=== PATIENT | male | born 1935 | race Caucasian/White ===

== ENCOUNTER 2016-04-23 10:48 | Outpatient (CLI) | payer MEDICARE, BC | END 2016-04-23 10:49 | disposition home or self-care (01) | DX: I48.91 Unspecified atrial fibrillation (principal); Z79.01 Long term (current) use of anticoagulants ==

== ENCOUNTER 2016-05-21 10:26 | Outpatient (CLI) | payer MEDICARE, BC | END 2016-05-21 10:27 | disposition home or self-care (01) | DX: I48.91 Unspecified atrial fibrillation (principal); Z79.01 Long term (current) use of anticoagulants ==

== ENCOUNTER 2016-06-04 10:45 | Outpatient (CLI) | payer MEDICARE, BC | END 2016-06-04 10:46 | disposition home or self-care (01) | DX: I48.91 Unspecified atrial fibrillation (principal); Z79.01 Long term (current) use of anticoagulants ==

== ENCOUNTER 2016-07-02 10:49 | Outpatient (CLI) | payer MEDICARE, BC | END 2016-07-02 10:50 | disposition home or self-care (01) | DX: I48.91 Unspecified atrial fibrillation (principal); Z79.01 Long term (current) use of anticoagulants ==

== ENCOUNTER 2016-07-30 08:42 | Outpatient (CLI) | payer MEDICARE, BC | END 2016-07-30 08:43 | disposition home or self-care (01) | DX: I48.91 Unspecified atrial fibrillation (principal); Z79.01 Long term (current) use of anticoagulants ==

== ENCOUNTER 2016-08-27 10:18 | Outpatient (CLI) | payer MEDICARE, BC | END 2016-08-27 10:19 | disposition home or self-care (01) | DX: I48.91 Unspecified atrial fibrillation (principal); Z79.01 Long term (current) use of anticoagulants ==

== ENCOUNTER 2016-09-24 08:47 | Outpatient (CLI) | payer MEDICARE, BC | END 2016-09-24 08:48 | disposition home or self-care (01) | LOC: LAB 08:47 | PROVIDERS: ATTEND Internal Medicine | DX: I48.91 Unspecified atrial fibrillation (principal) | CPT/HCPCS: 85610 ==

== ENCOUNTER 2016-10-22 10:18 | Outpatient (CLI) | payer MEDICARE, BC | END 2016-10-22 10:19 | disposition home or self-care (01) | LOC: LAB 10:18 | PROVIDERS: ATTEND Internal Medicine | DX: I48.91 Unspecified atrial fibrillation (principal) | CPT/HCPCS: 85610 ==

== ENCOUNTER 2016-11-19 07:51 | Outpatient (CLI) | payer MEDICARE, BC | END 2016-11-19 07:52 | disposition home or self-care (01) | LOC: LAB 07:51 | PROVIDERS: ATTEND Internal Medicine | DX: I48.91 Unspecified atrial fibrillation (principal) | CPT/HCPCS: 85610 ==

== ENCOUNTER 2016-12-03 10:27 | Outpatient (CLI) | payer MEDICARE, BC | END 2016-12-03 10:28 | disposition home or self-care (01) | LOC: LAB 10:27 | PROVIDERS: ATTEND Internal Medicine | DX: I48.91 Unspecified atrial fibrillation (principal) | CPT/HCPCS: 85610 ==

== ENCOUNTER 2016-12-31 10:11 | Outpatient (CLI) | payer MEDICARE, BC | END 2016-12-31 10:12 | disposition home or self-care (01) | LOC: LAB 10:11 | PROVIDERS: ATTEND Internal Medicine | DX: I48.91 Unspecified atrial fibrillation (principal); Z79.01 Long term (current) use of anticoagulants | CPT/HCPCS: 85610 ==

== ENCOUNTER 2017-01-27 13:18 | Outpatient (CLI) | payer MEDICARE, BC | END 2017-01-27 13:19 | disposition home or self-care (01) | LOC: LAB 13:18 | PROVIDERS: ATTEND Internal Medicine | DX: I48.91 Unspecified atrial fibrillation (principal); Z79.01 Long term (current) use of anticoagulants | CPT/HCPCS: 85610 ==

== ENCOUNTER 2017-02-25 10:43 | Outpatient (CLI) | payer MEDICARE, BC | END 2017-02-25 10:44 | disposition home or self-care (01) | LOC: LAB 10:43 | PROVIDERS: ATTEND Internal Medicine | DX: I48.91 Unspecified atrial fibrillation (principal); Z79.01 Long term (current) use of anticoagulants | CPT/HCPCS: 85610 ==

== ENCOUNTER 2017-03-11 10:45 | Outpatient (CLI) | payer MEDICARE, BC | END 2017-03-11 10:46 | disposition home or self-care (01) | LOC: LAB 10:45 | PROVIDERS: ATTEND Internal Medicine | DX: I48.91 Unspecified atrial fibrillation (principal); Z79.01 Long term (current) use of anticoagulants | CPT/HCPCS: 85610 ==

== ENCOUNTER 2017-04-08 10:42 | Outpatient (CLI) | payer MEDICARE, BC | END 2017-04-08 10:43 | disposition home or self-care (01) | LOC: LAB 10:42 | PROVIDERS: ATTEND Internal Medicine | DX: I48.91 Unspecified atrial fibrillation (principal); Z79.01 Long term (current) use of anticoagulants | CPT/HCPCS: 85610 ==

== ENCOUNTER 2017-04-09 08:57 | Outpatient (CLI) | payer MEDICARE, BC ==
[2017-04-09 09:14] LABS: BASOPHILS % (AUTO) 0.6 %; EOSINOPHILS # (AUTO) 0.1 10^3/uL (0.0-0.7); EOSINOPHILS % (AUTO) 1.8 %; HCT - HEMATOCRIT 42.7 % (42.0-52.0); HGB - HEMOGLOBIN 14.7 g/dL (14.0-18.0); LYMPHOCYTES % (AUTO) 26.9 %; MEAN CORPUSCULAR HEMOGLOBIN 33.2 pg (27.0-31.0); MEAN CORPUSCULAR HGB CONC 34.4 g/dL (32.0-36.0); MEAN CORPUSCULAR VOLUME 96.6 fL (80.0-94.0); MEAN PLATELET VOLUME 7.6 fL (7.4-11.4); MONOCYTES # (AUTO) 0.4 10^3/uL (0.0-1.0); MONOCYTES % (AUTO) 5.8 %; NEUTROPHILS # (AUTO) 4.8 10^3/uL (1.5-6.6); NEUTROPHILS % (AUTO) 64.9 %; RED BLOOD COUNT 4.42 10^6/uL (4.70-6.10); RED CELL DISTRIBUTION WIDTH 13.5 % (12.0-15.0); UNCORRECTED WHITE BLOOD COUNT 7.4 x10^3/uL; WHITE BLOOD COUNT 7.4 x10^3/uL (4.8-10.8)
[2017-04-09 09:33] LABS: ALBUMIN/GLOBULIN RATIO 1.4 (1.0-2.2); BUN - BLOOD UREA NITROGEN 25 mg/dL (6-20); CALCIUM 9.2 mg/dL (8.5-10.3); CARBON DIOXIDE - CO2 28 mmol/L (21-32); CHLORIDE 102 mmol/L (101-111); CHOL/HDL RATIO 3.2 (<5.0); CHOLESTEROL 149 mg/dL; CREATININE 0.9 mg/dL (0.6-1.2); GFR - MDRD 81 (>89); GLUCOSE 112 mg/dL (70-100); HDL CHOLESTEROL 46 mg/dL; LDL/HDL RATIO 1.8 (<3.6); POTASSIUM 4.7 mmol/L (3.5-5.0); SODIUM 137 mmol/L (135-145); TOTAL PROTEIN 7.3 g/dL (6.7-8.2); TRIGLYCERIDES 92 mg/dL; VLDL CHOLESTEROL 18 mg/dL
[2017-04-09 09:34] LABS: HEMOGLOBIN A1C 0.6 g/dL
== END 2017-04-09 08:58 | disposition home or self-care (01) ==
LOC: LAB 08:57
PROVIDERS: ATTEND Nurse Practitioner Primary Care
DX: R73.01 Impaired fasting glucose (principal); Z79.899 Other long term (current) drug therapy; K57.90 Diverticulosis of intestine, part unspecified, without perforation or abscess without bleeding; M19.90 Unspecified osteoarthritis, unspecified site; I42.9 Cardiomyopathy, unspecified; I48.91 Unspecified atrial fibrillation
CPT/HCPCS: 36415; 80053; 80061; 83036; 84443; 85025

== ENCOUNTER 2017-04-15 09:33 | Outpatient (CLI) | payer MEDICARE, BC | END 2017-04-15 09:34 | disposition home or self-care (01) | LOC: LAB 09:33 | PROVIDERS: ATTEND Internal Medicine | DX: I48.91 Unspecified atrial fibrillation (principal); Z79.01 Long term (current) use of anticoagulants | CPT/HCPCS: 85610 ==

== ENCOUNTER 2017-05-13 08:05 | Outpatient (CLI) | payer MEDICARE, BC | END 2017-05-13 08:06 | disposition home or self-care (01) | LOC: LAB 08:05 | PROVIDERS: ATTEND Internal Medicine | DX: I48.91 Unspecified atrial fibrillation (principal); Z79.01 Long term (current) use of anticoagulants | CPT/HCPCS: 85610 ==

== ENCOUNTER 2017-06-10 10:26 | Outpatient (CLI) | payer MEDICARE, BC | END 2017-06-10 10:27 | disposition home or self-care (01) | LOC: LAB 10:26 | PROVIDERS: ATTEND Internal Medicine | DX: I48.91 Unspecified atrial fibrillation (principal); Z79.01 Long term (current) use of anticoagulants | CPT/HCPCS: 85610 ==

== ENCOUNTER 2017-07-08 09:11 | Outpatient (CLI) | payer MEDICARE, BC | END 2017-07-08 09:12 | disposition home or self-care (01) | LOC: LAB 09:11 | PROVIDERS: ATTEND Internal Medicine | DX: I48.91 Unspecified atrial fibrillation (principal); Z79.01 Long term (current) use of anticoagulants | CPT/HCPCS: 85610 ==

== ENCOUNTER 2017-08-05 10:18 | Outpatient (CLI) | payer MEDICARE, BC | END 2017-08-05 10:19 | disposition home or self-care (01) | LOC: LAB 10:18 | PROVIDERS: ATTEND Internal Medicine | DX: I48.91 Unspecified atrial fibrillation (principal); Z79.01 Long term (current) use of anticoagulants | CPT/HCPCS: 85610 ==

== ENCOUNTER 2017-08-31 14:57 | Outpatient (CLI) | payer MEDICARE, BC | END 2017-08-31 14:58 | disposition critical access hospital (66) | LOC: EMS 14:57 | PROVIDERS: ATTEND Surgery | DX: M25.551 Pain in right hip (principal); W19.XXXA Unspecified fall, initial encounter; Y92.009 Unspecified place in unspecified non-institutional (private) residence as the place of occurrence of the external cause | CPT/HCPCS: A0425; A0429 ==

== ENCOUNTER 2017-08-31 15:10 | Inpatient (IN) | payer MEDICARE, BC ==
[2017-08-31] MEDS ORDERED: MORPHINE 10 MG/ML VIAL IVP STA (15:44)
[2017-08-31 15:48] LABS: BASOPHILS % (AUTO) 0.2 %; EOSINOPHILS # (AUTO) 0.1 10^3/uL (0.0-0.7); EOSINOPHILS % (AUTO) 0.6 %; LYMPHOCYTES # (AUTO) 1.6 10^3/uL (1.5-3.5); LYMPHOCYTES % (AUTO) 10.1 %; MEAN CORPUSCULAR HEMOGLOBIN 31.9 pg (27.0-31.0); MEAN CORPUSCULAR HGB CONC 33.2 g/dL (32.0-36.0); MEAN CORPUSCULAR VOLUME 96.2 fL (80.0-94.0); MEAN PLATELET VOLUME 7.2 fL (7.4-11.4); MONOCYTES # (AUTO) 0.5 10^3/uL (0.0-1.0); MONOCYTES % (AUTO) 3.2 %; NEUTROPHILS # (AUTO) 13.3 10^3/uL (1.5-6.6); NEUTROPHILS % (AUTO) 85.9 %; PLT - PLATELET COUNT 163 10^3/uL (130-450); RED BLOOD COUNT 4.08 10^6/uL (4.70-6.10); RED CELL DISTRIBUTION WIDTH 13.2 % (12.0-15.0); WHITE BLOOD COUNT 15.5 x10^3/uL (4.8-10.8)
[2017-08-31 15:59] LABS: ALBUMIN/GLOBULIN RATIO 1.5 (1.0-2.2); BILIRUBIN,TOTAL 0.7 mg/dL (0.2-1.0); CREATININE 1.1 mg/dL (0.6-1.2); TOTAL PROTEIN 6.7 g/dL (6.7-8.2)
[2017-08-31 16:02] LABS: INR 2.9 (0.8-1.2); PT - PROTHROMBIN TIME 31.9 secs (9.9-12.6)
--- NOTE | 2017-08-31 16:18 | ED Physician Documentation ---
History of Present Illness - Stated complaint Stated Complaint: HIP FRACTURE - Chief complaint Chief Complaint: Ext Problem - History obtained from History obtained from: Patient, Family - History of Present Illness Timing: Today Pain level max: 8 Pain level now: 8 Improved by: rest Worsened by: movement - Additonal information Additional information: Patient was pulling out brambles on a hill when he tripped, falling onto the right hip. Unable to bear weight since that time. Increased pain with range of motion or movement. EMS arrived and brought him to the emergency department. He is on warfarin for atrial fibrillation. Denies any head injury or headache. Review of Systems Ten Systems: 10 systems reviewed and negative Constitutional: denies: Fever, Chills Nose: denies: Rhinorrhea / runny nose, Congestion Respiratory: denies: Cough GI: denies: Nausea, Vomiting, Diarrhea Skin: denies: Rash Musculoskeletal: denies: Neck pain, Back pain Neurologic: denies: Headache, Head injury, LOC PD PAST MEDICAL HISTORY - Past Medical History Past Medical History: Yes Cardiovascular: Atrial fibrillation Respiratory: None Endocrine/Autoimmune: None GI: None : None HEENT: None Psych: None Musculoskeletal: Osteoarthritis Derm: None - Past Surgical History Past Surgical History: No - Present Medications Home Medications: Ambulatory Orders Medication Instructions Recorded Confirmed Albuterol Sulf [Ventolin Hfa 1 - 2 puffs INH Q4HR PRN #1 inhaler 03/26/16 Inhaler] Calcium Carbonate/Vitamin D3 1 tab PO DAILY 03/26/16 08/31/17 [Calcium 600-Vit D3 800 Tab] Carvedilol 12.5 mg PO BID 03/26/16 08/31/17 Meloxicam 15 mg PO DAILY 03/26/16 08/31/17 Warfarin [Coumadin] 5 mg PO DAILY 03/26/16 08/31/17 Lisinopril [Zestril] 5 mg PO DAILY 08/31/17 08/31/17 Loratadine 10 mg PO DAILY 08/31/17 08/31/17 Multivitamin [Theragran] 1 each PO DAILY 08/31/17 08/31/17 - Allergies Allergies/Adverse Reactions: Allergies Allergy/AdvReac Type Severity Reaction Status Date / Time No Known Drug Allergies Allergy Verified 03/26/16 06:25 - Social History Does the pt smoke?: No Smoking Status: Never smoker Does the pt drink ETOH?: No Does the pt have substance abuse?: No - Immunizations Immunizations are current?: Yes PD ED PE NORMAL - Vitals Vital signs reviewed: Yes - General General: Alert and oriented X 3, No acute distress - HEENT HEENT: Atraumatic, PERRL, EOMI, Ears normal, Moist mucous membranes, Pharynx benign - Neck Neck: Supple, no meningeal sign, No bony TTP - Cardiac Cardiac: RRR, Strong equal pulses - Respiratory Respiratory: No respiratory distress, Clear bilaterally - Abdomen Abdomen: Soft, Non tender, Non distended - Back Back: No spinal TTP - Derm Derm: Warm and dry, No rash - Extremities Extremities: No edema, Other (TTP over the R hip. shortened leg. pain with internal/external rotation. NVI. ) - Neuro Neuro: Alert and oriented X 3, field inspector 2-12 intact, No motor deficit, No sensory deficit, Normal speech - Psych Psych: Normal mood, Normal affect Results - Vitals Vitals: Vital Signs - 24 hr 08/31/17 08/31/17 15:20 16:55 Temperature 36.5 C Heart Rate 103 H 76 Respiratory 14 16 Rate Blood Pressure 99/74 104/64 O2 Saturation 100 99 Oxygen O2 Source Room air - EKG (time done) 1634 Rate: Rate (enter#) (99) Rhythm: Atrial fibrillation Melvin: Normal QRS: Normal Ischemia: Non specific changes - Labs Labs: Laboratory Tests 08/31/17 08/31/17 08/31/17 15:43 15:43 15:43 WBC 15.5 H RBC 4.08 L Hgb 13.0 L Hct 39.3 L MCV 96.2 H MCH 31.9 H MCHC 33.2 RDW 13.2 Plt Count 163 MPV 7.2 L Neut # 13.3 H Lymph # 1.6 Gilchrist # 0.5 Eos # 0.1 Baso # 0.0 Absolute Nucleated RBC 0.01 Nucleated RBC % 0.0 PT 31.9 H INR 2.9 H Sodium 133 L Potassium 4.3 Chloride 101 Carbon Dioxide 27 Anion Gap 5.0 L BUN 30 H Creatinine 1.1 Estimated GFR (MDRD) 64 L Glucose 113 H Calcium 9.0 Total Bilirubin 0.7 AST 29 ALT 19 Alkaline Phosphatase 42 Total Protein 6.7 Albumin 4.0 Globulin 2.7 Albumin/Globulin Ratio 1.5 Lipase 25 - Rads (name of study) R hip xray Radiology: Prelim report reviewed, EMP read contemporaneously, See rad report ( Nondisplaced right femoral neck fracture. ) cxr Radiology: Prelim report reviewed, EMP read contemporaneously, See rad report ( no acute disease) PD MEDICAL DECISION MAKING - ED course Complexity details: reviewed results, re-evaluated patient, considered differential, d/w patient, d/w family, d/w retail consultant ED course: Patient is an 81-year-old gentleman who presents to the emergency department after a fall today. Found to have a right hip fracture. Discussed the case with Dr. Alba, orthopedics on-call who will come and evaluate the patient in the hospital. He asked the hospitalist to take the admission given his multiple medical problems. I discussed the case with Dr. Murillo, hospitalist who accepts. This document was made in part using voice recognition software. While efforts are made to proofread this document, sound alike and grammatical errors may occur. Departure - Departure Disposition: 66 [facility] DC/Xfer Clinical Impression: Femoral neck fracture Qualifiers: Encounter type: initial encounter Fracture type: closed Laterality: right Qualified Code(s): S72.001A - Fracture of unspecified part of neck of right femur, initial encounter for closed fracture Condition: Stable Discharge Date/Time: 08/31/17 17:56
--- NOTE | 2017-08-31 16:21 | XRAY Report ---
EXAM: RIGHT HIP AND PELVIS RADIOGRAPHY EXAM DATE: 08/31/2017 03:41 PM. HISTORY: Fall, R hip pain. COMPARISONS: None. TECHNIQUE: 1 view of the pelvis and 1 view of the hip. FINDINGS: Bones: Nondisplaced right femoral neck fracture. Joints: The bilateral hip, pubis symphysis, and sacroiliac joints are preserved. Soft Tissues: Unremarkable IMPRESSION: Nondisplaced right femoral neck fracture. [facility] Referring Provider Line: [phone] SITE ID: [id number]
--- NOTE | 2017-08-31 16:21 | XRAY Preliminary Report ---
Exam: XR HIP W/PELVIS 2-3V RT IMPRESSION: Nondisplaced right femoral neck fracture. [facility] SITE ID: [id number]
--- NOTE | 2017-08-31 16:43 | XRAY Preliminary Report ---
Exam: XR CHEST 1 VIEW X-RAY IMPRESSION: Negative for an acute cardiopulmonary abnormality. [facility] SITE ID: [id number]
--- NOTE | 2017-08-31 16:44 | XRAY Report ---
EXAM: CHEST RADIOGRAPHY EXAM DATE: 08/31/2017 04:34 PM. CLINICAL HISTORY: Pre-op hip fracture. COMPARISON: 03/26/2016. TECHNIQUE: 1 view. FINDINGS: Lungs/Pleura: There is a 7 mm nodule in the right midlung which appears unchanged. Lungs appear uncha nged noting mild elevation right hemidiaphragm. No pulmonary edema or pneumothorax. Mediastinum: The thoracic aorta is tortuous. The heart size is normal. Other: None. IMPRESSION: Negative for an acute cardiopulmonary abnormality. [facility] Referring Provider Line: [phone] SITE ID: [id number]
[2017-08-31] MEDS ORDERED: ONDANSETRON 4 MG/2 ML VIAL IVP PRN (17:36)
[2017-08-31] MEDS ORDERED: ZOLPIDEM 5 MG TABLET PO PRN (17:36)
[2017-08-31] MEDS ORDERED: ALBUTEROL NEB 2.5 MG/3 ML INH PRN (17:47)
--- NOTE | 2017-08-31 17:57 | HISTORY & PHYSICAL EXAMINATION ---
Chief Complaint - Chief Complaint Chief Complaint: fall and right hip pain History of Present Illness - Admitted From Admitted From:: ER - History Obtained From History obtained from: Pt - History of Present Illness HPI Comment/Other: Mr. Castro is a 81-yrs-old male with a PMH significant for HTN, Afib with Coumadin, osteoarthritis, who present ER for complaint of right hip pain. Pt report when he tripped, he was pulling out brambles on a hill. His right elbow and right hip hit the ground. The right elbow has skin tears but no other injury , and with full ROM. But his right hip immediately had sharp pain and he can not move his hip. Xray of hip reveals nondisplaced right femoral neck fracture. His WBC is mild to moderately elevated, CXR is unremarkable, UA is pending. pt denies other injury. Pt denies fever, chill, cough, shortness of breath, chest pain, headache, vision changing. pt is admitted for hip repair, and orthopedics surgeon is consulted. History - Past Medical History Cardiovascular: reports: Atrial fibrillation Respiratory: reports: None Endocrine/Autoimmune: reports: None GI: reports: None : reports: None HEENT: reports: None Psych: reports: None Musculoskeletal: reports: Osteoarthritis Derm: reports: None MRSA Hx?: No - Family & Social History Family History: Mother: , Cancer, COPD/Emphysema, Father: , COPD /Emphysema Family History Comment/Other: pt is living with in [facility]. Pt does not have child Living arrangement: At home Living Situation: With spouse/s.o. 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 No alcohol and drug issue. - Substance History Use: Uses substance without health or social issues: NONE Abuse: Recurrent use of substance despite neg consequences: NONE Dependence: Experiences withdrawal or developed tolerances: NONE - POLST Patient has POLST: Yes POLST Status: DNR Meds/Allgy - Home Medications Home Medications: Ambulatory Orders Medication Instructions Recorded Confirmed Albuterol Sulf [Ventolin Hfa 1 - 2 puffs INH Q4HR PRN #1 inhaler 03/26/16 Inhaler] Calcium Carbonate/Vitamin D3 1 tab PO DAILY 03/26/16 08/31/17 [Calcium 600-Vit D3 800 Tab] Carvedilol 12.5 mg PO BID 03/26/16 08/31/17 Meloxicam 15 mg PO DAILY 03/26/16 08/31/17 Warfarin [Coumadin] 5 mg PO DAILY 03/26/16 08/31/17 Lisinopril [Zestril] 5 mg PO DAILY 08/31/17 08/31/17 Loratadine 10 mg PO DAILY 08/31/17 08/31/17 Multivitamin [Theragran] 1 each PO DAILY 08/31/17 08/31/17 - Allergies Allergies/Adverse Reactions: Allergies Allergy/AdvReac Type Severity Reaction Status Date / Time No Known Drug Allergies Allergy Verified 03/26/16 06:25 Review of Systems - Constitutional Constitutional: denies: Fatigue, Fever, Chills, Malaise, Weakness, Poor appetite , Diaphoresis, Night sweats, Weight gain - Eyes Eyes: denies: Pain, Irritation, Amaurosis, Blurred vision, Spots in vision, Field loss, Vision loss, Dipolpia - Ears, Nose & Throat Ears, Nose & Throat: denies: Ear pain, Hearing loss, Hearing aids, Tinnitus, Vertigo, Nasal pain, Nasal discharge, Nosebleeds, Postnasal drainage, Dentures, Sore throat, Mouth lesions, Bleeding gums - Cardiovascular Cariovascular: denies: Irregular heart rate, Palpitations, Chest pain, Edema, Lightheadedness, Syncope, Exertional dyspnea, Decr. exercise tolerance - Respiratory Respiratory: denies: Cough, Sputum production, Wheezing, Snoring, Hemoptysis, Orthopnea, SOB at rest, SOB with exertion - Gastrointestinal Gastrointestinal: denies: Abdominal pain, Abdominal distention, Constipation, Diarrhea, Change in bowel habits, Rectal bleeding, Black stools, Bloody stools, Nausea, Vomiting, Bile emesis, Steve blood emesis, Coffee grounds emesis, Reflux /heartburn, Bloating, Poor appetite - Genitourinary Genitourinary: denies: Dysuria, Frequency, Urgency, Hematuria, Incontinence, Flank pain, Nocturia, Urethral discharge - Musculoskeletal Musculoskeletal: reports: Joint pain. denies: Muscle pain, Back pain, Muscle aches, Stiffness, Limited range of motion, Muscle weakness, Gout - Integumentary Integumentary: denies: Rash, Pruritis, Lesions, Dryness, Lumps, Acne, Pigment changes, Nail changes - Neurological Neurological: denies: General weakness, Focal weakness, Headache, Dizziness, Numbness, Memory problems, Pre-existing deficit, Abnormal gait, Seizures, Incoordination, Slurred speech - Psychiatric Psychiatric: denies: Depression, Anxiety, Suicidal, Delusions, Hallucinations, Homicidal - Endocrine Endocrine: denies: Polyuria, Polydypsia, Polyphagia, Intolerance to cold - Hematologic/Lymphatic Hematologic/Lymphatic: denies: Anemia, Bruising, Petechiae, Blood clots, Lymphadenopathy, Bleeding tendencies Exam - Vital Signs Reviewed Vital Signs: Yes - Physical Exam General Appearance: positive: No acute distress, Alert. negative: Lethargic Eyes Bilateral: positive: Normal inspection, PERRL, No lid inflammation, Conjunctivae nml ENT: positive: ENT inspection nml, Pharynx nml, No signs of dehydration. negative: Purulent nasal drainage, Pharyngeal erythema, Oral lesions Neck: positive: Nml inspection, Thyroid nml, No JVD, Trachea midline. negative : Thyromegaly, Lymphadenopathy (R), Lymphadenopathy (L), Stiff neck, Carotid bruit, Swelling/bruising, Tracheal deviation Respiratory: positive: Chest non-tender, No respiratory distress, Breath sounds nml. negative: Wheezes, Rales, Rhonchi Cardiovascular: positive: Regular rate & rhythm, No murmur, No gallop. negative : Irregularly irregular, Extrasystoles, Tachycardia, Bradycardia, JVD present, Systolic murmur, Diastolic murmur Peripheral Pulses: positive: 2+ Abdomen: positive: Non-tender, No organomegaly, Nml bowel sounds, No distention. negative: Tenderness, Guarding, Rebound Back: positive: Nml inspection. negative: CVA tenderness (R), CVA tenderness (L ) Skin: positive: Color nml, No rash, Warm, Dry. negative: Cyanosis, Diaphoresis , Pallor Extremities: positive: Non-tender, Nml appearance. negative: Calf tenderness, Joint swelling, Genaro's sign/cords Neurologic/Psychiatric: positive: Oriented x3, Sensation nml, Mood/affect nml. negative: Weakness, Sensory loss, Facial droop, Slurred/abnml speech, Depressed mood/affect Conclusion/Plan - Problem List (1) Femoral neck fracture Conclusion/Plan: consult and called with orthopedic. pain control mild IVF NPO except meds after middle night order ECHO for pt. revised cardiac risk index for pre-operative risk is 0.4%, ECHO is pending. Qualifiers: Encounter type: initial encounter Fracture type: closed Laterality: right Qualified Code(s): S72.001A - Fracture of unspecified part of neck of right femur, initial encounter for closed fracture (2) HTN (hypertension) Conclusion/Plan: stable, resume home meds vital monitor (3) Afib Conclusion/Plan: Pt's PT/INR is 32/2.9, called orthopedics tele and vital monitor hold Coumadin PT/INR (4) Lymphocytosis Conclusion/Plan: CXR is unremarkable, UA is pending daily lab check again. pt is no fever, chill, cough, wheezing, dysuria. (5) Hyponatremia Conclusion/Plan: Na 133, it seems hypovolume with hyponatremia IVF of NS daily lab monitor (6) DVT prophylaxis Conclusion/Plan: SCD and Lovenox (7) Do not intubate, cardiopulmonary resuscitation (CPR)-only code status Conclusion/Plan: pt request DNR - Lab Results Fish Bones: 08/31/17 15:43 08/31/17 15:43 Core Measures - Anticipated LOS I expect patient to be DC'd or transferred within 96 hours.: Yes - DVT/VTE - Prophylaxis VTE/DVT Device ordered at admit?: Yes VTE/DVT Prophylaxis med ordered at admit?: Yes
[2017-08-31] MEDS: SODIUM CHLORIDE 0.9% 1,000 ML IV SCH (18:33)
[2017-08-31] MEDS: SODIUM CHLORIDE FLUSH 0.9% 10 ML SYRINGE IVP PRN ×3 (18:34→21:28)
[2017-08-31] MEDS: MORPHINE 2 MG/ML SYRINGE IVP PRN ×2 (19:49→22:32)
[2017-08-31] MEDS ORDERED: PHYTONADIONE INJ (ADULT) 10 MG in SODIUM CHLORIDE 0.9% 50 ML IV ONE (20:28)
--- NOTE | 2017-08-31 20:46 | CONSULTATION NOTE ---
Referring Provider Name of Referring Provider:: DOUGLAS Consult Date: 08/31/17 (SEE DICTATION ) History - Past Medical History Cardiovascular: reports: Atrial fibrillation Respiratory: reports: None Neuro: reports: None Endocrine/Autoimmune: reports: None GI: reports: None : reports: None HEENT: reports: None Psych: reports: None Musculoskeletal: reports: Osteoarthritis Derm: reports: None MRSA Hx?: No - Family & Social History Family History: Mother: , Cancer, COPD/Emphysema, Father: , COPD /Emphysema Family History Comment/Other: pt is living with in [facility]. Pt does not have child Living arrangement: At home Living Situation: With spouse/s.o. 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 No alcohol and drug issue. - Substance History Use: Uses substance without health or social issues: NONE Abuse: Recurrent use of substance despite neg consequences: NONE Dependence: Experiences withdrawal or developed tolerances: NONE - POLST Patient has POLST: Yes POLST Status: DNR Meds/Allgy - Home Medications Home Medications: Ambulatory Orders Medication Instructions Recorded Confirmed Albuterol Sulf [Ventolin Hfa 1 - 2 puffs INH Q4HR PRN #1 inhaler 03/26/16 Inhaler] Calcium Carbonate/Vitamin D3 1 tab PO DAILY 03/26/16 08/31/17 [Calcium 600-Vit D3 800 Tab] Carvedilol 12.5 mg PO BID 03/26/16 08/31/17 Meloxicam 15 mg PO DAILY 03/26/16 08/31/17 Warfarin [Coumadin] 5 mg PO DAILY 03/26/16 08/31/17 Lisinopril [Zestril] 5 mg PO DAILY 08/31/17 08/31/17 Loratadine 10 mg PO DAILY 08/31/17 08/31/17 Multivitamin [Theragran] 1 each PO DAILY 08/31/17 08/31/17 - Allergies Allergies/Adverse Reactions: Allergies Allergy/AdvReac Type Severity Reaction Status Date / Time No Known Drug Allergies Allergy Verified 03/26/16 06:25 Exam - Vital Signs Vital Signs: Vital Signs x48h Temp Pulse Resp BP Pulse Ox 08/31/17 20:32 108 H 116/69 08/31/17 19:54 98 08/31/17 19:53 37.0 C 122 H 16 137/97 H 88 L 08/31/17 18:22 36.7 C 105 H 16 126/80 95 Conclusion/Plan - Lab Results Fish Bones: 08/31/17 15:43 08/31/17 15:43
[2017-08-31] MEDS: ACETAMINOPHEN 325 MG TABLET PO PRN (21:28)
[2017-08-31] MEDS: CARVEDILOL 12.5 MG TABLET PO SCH (21:28)
[2017-08-31] MEDS: CALCIUM CARBONATE CHEW 500 MG TABLET PO SCH (21:29)
--- NOTE | 2017-08-31 21:36 | CT Report ---
EXAM: RIGHT HIP CT WITHOUT CONTRAST EXAM DATE: 08/31/2017 09:17 PM. CLINICAL HISTORY: Right hip fracture. COMPARISON: Right hip 2 views 08/31/2017. TECHNIQUE: Thin-section axial images were acquired of the hip without contrast. Post-processing: Dk nal and sagittal reformats. Other: None. In accordance with CT protocol optimization, one or more of the following dose reduction techniques w ere utilized for this exam: automated exposure control, adjustment of mA and/or KV based on patient s ize, or use of iterative reconstructive technique. FINDINGS: Bones: Right femoral head subcortical fracture with impaction. Medial 8mm fracture impaction. Lateral 7 mm fracture impaction. Posterior 1 cm fracture offset sagittal reconstructions. Subcortical cystic degenerative changes superior lateral acetabulum. Joints: There is moderate narrowing of the posterior right hip joint space. Mild osteoarthritis right hip. Musculature: Normal. No fatty atrophy. Other: The visualized intraperitoneal structures are unremarkable. IMPRESSION: Subcortical right femoral neck fracture with mild impaction. [facility] Referring Provider Line: [phone] SITE ID: [id number]
[2017-08-31 22:17] LABS: BILIRUBIN,URINE NEGATIVE (NEGATIVE); GLUCOSE, URINE (UA) NEGATIVE (NEGATIVE); KETONES,URINE (UA) 15 mg/dL (NEGATIVE); LEUKOCYTE ESTERASE, URINE NEGATIVE (NEGATIVE); NITRITE,URINE NEGATIVE (NEGATIVE); OCCULT BLOOD,URINE NEGATIVE (NEGATIVE); PROTEIN,URINE NEGATIVE (NEGATIVE); UROBILINOGEN,URINE 0.2 (NORMAL) E.U./dL (NORMAL)
[2017-08-31 22:20] LABS: CLARITY,URINE CLEAR (CLEAR)
[2017-08-31 22:25] LABS: RBC,URINE None Seen /HPF (0-5)
[2017-08-31 22:26] LABS: BACTERIA,URINE None Seen /HPF (None Seen); MUCUS,URINE Few Strands; SQUAMOUS EPITHELIAL CELL,UR RARE Squamous (<= Few)
[2017-08-31] MEDS: SODIUM CHLORIDE FLUSH 0.9% 10 ML SYRINGE IVP SCH (23:33)
[2017-09-01 05:50] LABS: BASOPHILS % (AUTO) 0.3 %; EOSINOPHILS # (AUTO) 0.2 10^3/uL (0.0-0.7); EOSINOPHILS % (AUTO) 1.8 %; HGB - HEMOGLOBIN 12.3 g/dL (14.0-18.0); LYMPHOCYTES # (AUTO) 1.7 10^3/uL (1.5-3.5); LYMPHOCYTES % (AUTO) 15.1 %; MEAN CORPUSCULAR HEMOGLOBIN 32.1 pg (27.0-31.0); MEAN CORPUSCULAR HGB CONC 33.2 g/dL (32.0-36.0); MEAN CORPUSCULAR VOLUME 96.5 fL (80.0-94.0); MEAN PLATELET VOLUME 7.5 fL (7.4-11.4); MONOCYTES # (AUTO) 0.3 10^3/uL (0.0-1.0); NEUTROPHILS # (AUTO) 8.8 10^3/uL (1.5-6.6); NEUTROPHILS % (AUTO) 79.8 %; PLT - PLATELET COUNT 130 10^3/uL (130-450); RED BLOOD COUNT 3.84 10^6/uL (4.70-6.10); RED CELL DISTRIBUTION WIDTH 13.4 % (12.0-15.0); WHITE BLOOD COUNT 11.1 x10^3/uL (4.8-10.8)
[2017-09-01 05:57] LABS: PT - PROTHROMBIN TIME 22.5 secs (9.9-12.6)
[2017-09-01 06:05] LABS: ALBUMIN 3.3 g/dL (3.2-5.5); ALBUMIN/GLOBULIN RATIO 1.3 (1.0-2.2); BILIRUBIN,TOTAL 2.4 mg/dL (0.2-1.0); CALCIUM 8.3 mg/dL (8.5-10.3); CREATININE 1.1 mg/dL (0.6-1.2); MAGNESIUM 1.8 mg/dL (1.7-2.8); TOTAL PROTEIN 5.8 g/dL (6.7-8.2)
--- NOTE | 2017-09-01 07:39 | PROVIDER PROGRESS NOTE ---
Subjective - General Admit Date: 08/31/17 - Review of Systems General: positive: No symptoms (No pain at rest.) - Other Other Information/Narrative: CT scan shows [facility] Stage 3 RIgh t femoral neck fracture. Objective - Patient Data Vital Signs: Vital Signs x48h Temp Pulse Resp BP Pulse Ox 09/01/17 05:00 36.8 C 92 16 111/52 L 97 09/01/17 00:00 37.3 C 104 H 16 101/56 L 98 Weight: Weight 08/30/17 08/31/17 09/01/17 23:59 23:59 23:59 Weight (kg) 95 kg Intake & Output: Intake and Output Totals x24h 08/30/17 08/31/17 09/01/17 23:59 23:59 23:59 Intake Total 251 Output Total 100 200 Balance 151 -200 - Lab Results Lab Results: 09/01/17 05:35 09/01/17 05:35 Other Lab Results: Lab Results x24hrs 09/01/17 09/01/17 09/01/17 Range/Units 05:35 05:35 05:35 WBC 11.1 H (4.8-10.8) x10^3/uL RBC 3.84 L (4.70-6.10) 10^6/uL Hgb 12.3 L (14.0-18.0) g/dL Hct 37.1 L (42.0-52.0) % MCV 96.5 H (80.0-94.0) fL MCH 32.1 H (27.0-31.0) pg MCHC 33.2 (32.0-36.0) g/dL RDW 13.4 (12.0-15.0) % Plt Count 130 (130-450) 10^3/uL MPV 7.5 (7.4-11.4) fL Neut # 8.8 H (1.5-6.6) 10^3/uL Lymph # 1.7 (1.5-3.5) 10^3/uL Major # 0.3 (0.0-1.0) 10^3/uL Eos # 0.2 (0.0-0.7) 10^3/uL Baso # 0.0 (0.0-0.1) 10^3/uL Absolute Nucleated RBC 0.00 x10^3/uL Nucleated RBC % 0.0 /100WBC PT 22.5 H (9.9-12.6) secs INR 2.0 H (0.8-1.2) Sodium 131 L (135-145) mmol/L Potassium 4.7 (3.5-5.0) mmol/L Chloride 100 L (101-111) mmol/L Carbon Dioxide 24 (21-32) mmol/L Anion Gap 7.0 (6-13) BUN 36 H (6-20) mg/dL Creatinine 1.1 (0.6-1.2) mg/dL Estimated GFR (MDRD) 64 L (>89) Glucose 117 H (70-100) mg/dL Calcium 8.3 L (8.5-10.3) mg/dL Magnesium 1.8 (1.7-2.8) mg/dL Total Bilirubin 2.4 H (0.2-1.0) mg/dL AST 23 (10-42) IU/L ALT 16 (10-60) IU/L Alkaline Phosphatase 34 L (42-121) IU/L Total Protein 5.8 L (6.7-8.2) g/dL Albumin 3.3 (3.2-5.5) g/dL Globulin 2.5 (2.1-4.2) g/dL Albumin/Globulin Ratio 1.3 (1.0-2.2) Urine Color Urine Clarity (CLEAR) Urine pH (5.0-7.5) PH Ur Specific Calhoun (1.002-1.030) Urine Protein (NEGATIVE) mg/dL Urine Glucose (UA) (NEGATIVE) mg/dL Urine Ketones (NEGATIVE) mg/dL Urine Occult Blood (NEGATIVE) Urine Nitrite (NEGATIVE) Urine Bilirubin (NEGATIVE) Urine Urobilinogen (NORMAL) E.U./dL Ur Leukocyte Esterase (NEGATIVE) Urine RBC (0-5) /HPF Urine WBC (0-3) /HPF Ur Squamous Epith Cells (<= Few) Urine Bacteria (None Seen) /HPF Urine Mucus Urine Culture Comments 08/31/17 Range/Units 21:30 WBC (4.8-10.8) x10^3/uL RBC (4.70-6.10) 10^6/uL Hgb (14.0-18.0) g/dL Hct (42.0-52.0) % MCV (80.0-94.0) fL MCH (27.0-31.0) pg MCHC (32.0-36.0) g/dL RDW (12.0-15.0) % Plt Count (130-450) 10^3/uL MPV (7.4-11.4) fL Neut # (1.5-6.6) 10^3/uL Lymph # (1.5-3.5) 10^3/uL Major # (0.0-1.0) 10^3/uL Eos # (0.0-0.7) 10^3/uL Baso # (0.0-0.1) 10^3/uL Absolute Nucleated RBC x10^3/uL Nucleated RBC % /100WBC PT (9.9-12.6) secs INR (0.8-1.2) Sodium (135-145) mmol/L Potassium (3.5-5.0) mmol/L Chloride (101-111) mmol/L Carbon Dioxide (21-32) mmol/L Anion Gap (6-13) BUN (6-20) mg/dL Creatinine (0.6-1.2) mg/dL Estimated GFR (MDRD) (>89) Glucose (70-100) mg/dL Calcium (8.5-10.3) mg/dL Magnesium (1.7-2.8) mg/dL Total Bilirubin (0.2-1.0) mg/dL AST (10-42) IU/L ALT (10-60) IU/L Alkaline Phosphatase (42-121) IU/L Total Protein (6.7-8.2) g/dL Albumin (3.2-5.5) g/dL Globulin (2.1-4.2) g/dL Albumin/Globulin Ratio (1.0-2.2) Urine Color YELLOW Urine Clarity CLEAR (CLEAR) Urine pH 5.0 (5.0-7.5) PH Ur Specific Calhoun 1.025 (1.002-1.030) Urine Protein NEGATIVE (NEGATIVE) mg/dL Urine Glucose (UA) NEGATIVE (NEGATIVE) mg/dL Urine Ketones 15 H (NEGATIVE) mg/dL Urine Occult Blood NEGATIVE (NEGATIVE) Urine Nitrite NEGATIVE (NEGATIVE) Urine Bilirubin NEGATIVE (NEGATIVE) Urine Urobilinogen 0.2 (NORMAL) (NORMAL) E.U./dL Ur Leukocyte Esterase NEGATIVE (NEGATIVE) Urine RBC None Seen (0-5) /HPF Urine WBC 0-3 (0-3) /HPF Ur Squamous Epith Cells RARE Squamous (<= Few) Urine Bacteria None Seen (None Seen) /HPF Urine Mucus Few Strands Urine Culture Comments NOT INDICATED aaaaa - Current Medications Current Medications: Current Medications Generic Name Dose Route Start Last Admin Trade Name Freq PRN Reason Stop Dose Admin Acetaminophen 650 mg 08/31/17 17:36 08/31/17 21:28 Tylenol PO 650 mg Q4HR PRN Administration Pain 1 to 4 Calcium Carbonate/Glycine 500 mg 08/31/17 21:00 08/31/17 21:29 Tums PO 500 mg BID LARRY Administration Carvedilol 12.5 mg 08/31/17 21:00 08/31/17 21:28 Coreg PO 12.5 mg BID LARRY Administration Sodium Chloride 1,000 mls @ 85 mls/hr 08/31/17 18:00 08/31/17 18:33 Normal Saline 0.9% IV 85 mls/hr .[id number] LARRY Administration Morphine Sulfate 2 mg 08/31/17 17:36 08/31/17 22:32 Morphine IVP 2 mg Q2H PRN Administration Pain 8 to 10 Sodium Chloride 10 ml 08/31/17 17:36 08/31/17 21:28 Normal Saline Flush 0.9% IVP 10 ml PRN PRN Administration NEEDED PER PROVIDER ORDERS Sodium Chloride 10 ml 09/01/17 01:00 08/31/17 23:33 Normal Saline Flush 0.9% IVP Not Given 0100,0900,1700 [facility] Impression/Plan - Problem List Problem List: INR 2.0 this a.m. still too high for surgery. Will check later in the day NPO for now From CT result, Hemiarthroplasty is indicated. aa
[2017-09-01] MEDS: SODIUM CHLORIDE 0.9% 1,000 ML IV SCH (08:28)
[2017-09-01] MEDS ORDERED: LISINOPRIL 5 MG TABLET PO SCH (09:00)
[2017-09-01] MEDS ORDERED: CALCIUM CARBONATE CHEW 500 MG TABLET PO SCH (09:00)
[2017-09-01] MEDS: CARVEDILOL 12.5 MG TABLET PO SCH (09:17)
[2017-09-01] MEDS: CALCIUM CARBONATE CHEW 500 MG TABLET PO SCH ×2 (09:17→21:47)
[2017-09-01] MEDS: MULTIVITAMIN TABLET PO SCH (09:17)
[2017-09-01] MEDS: FAMOTIDINE 20 MG TABLET PO SCH (09:17)
[2017-09-01] MEDS: CHOLECALCIFEROL 400 UNIT TABLET PO SCH (09:17)
[2017-09-01] MEDS: ENOXAPARIN 40 MG/0.4 ML SYRINGE SUBQ SCH (09:17)
[2017-09-01] MEDS: LORATADINE 10 MG TABLET PO SCH (09:17)
[2017-09-01] MEDS: SODIUM CHLORIDE FLUSH 0.9% 10 ML SYRINGE IVP SCH ×2 (09:18→21:31)
[2017-09-01] MEDS: POLYETHYLENE GLYCOL 3350 17 GM PACKET PO SCH (09:19)
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
[2017-09-01] MEDS: HYDROmorphone 1 MG/ML CARPUJECT ONE ×4 (10:35→20:33)
[2017-09-01 13:09] LABS: INR 1.6 (0.8-1.2); PT - PROTHROMBIN TIME 17.6 secs (9.9-12.6)
--- NOTE | 2017-09-01 14:41 | PROVIDER PROGRESS NOTE ---
Subjective - Prog Note Date Prog Note Date: 09/01/17 Prog Note Time: 14:41 - Subjective Pt reports feeling: No change Subjective: Jovan admits to good pain control and is anxious to get his surgery out of the way. He denies SOB, chest pain, N/V or a new cough. Current Medications - Current Medications Current Medications: Active Medications Acetaminophen (Tylenol) 650 mg PO Q4HR PRN PRN Reason: Pain 1 to 4 Last Admin: 08/31/17 21:28 Dose: 650 mg Albuterol () 2.5 mg INH QID PRN PRN Reason: Wheezing Calcium Carbonate/Glycine (Tums) 500 mg PO BID [facility] Last Admin: 09/01/17 09:17 Dose: 500 mg Carvedilol (Coreg) 12.5 mg PO BID [facility] Last Admin: 09/01/17 09:17 Dose: 12.5 mg Cholecalciferol (Vitamin D3) 800 unit PO DAILY [facility] Last Admin: 09/01/17 09:17 Dose: 800 unit Enoxaparin Sodium (Lovenox) 40 mg SUBQ DAILY [facility] Last Admin: 09/01/17 09:17 Dose: Not Given Famotidine (Pepcid) 20 mg PO DAILY [facility] Last Admin: 09/01/17 09:17 Dose: 20 mg Sodium Chloride (Normal Saline 0.9%) 1,000 mls @ 85 mls/hr IV .[id number] [facility] Last Admin: 09/01/17 08:28 Dose: 85 mls/hr Cefazolin Sodium/Dextrose (Ancef 2 Gm/50 Ml) 2 gm in 50 mls @ 100 mls/hr IV ONCE ONE Stop: 09/01/17 15:14 Last Admin: 09/01/17 14:55 Dose: 100 mls/hr Loratadine (Claritin) 10 mg PO DAILY [facility] Last Admin: 09/01/17 09:17 Dose: 10 mg Morphine Sulfate (Morphine) 2 mg IVP Q2H PRN PRN Reason: Pain 8 to 10 Last Admin: 08/31/17 22:32 Dose: 2 mg Multivitamins (Theragran) 1 tab PO DAILY [facility] Last Admin: 09/01/17 09:17 Dose: 1 tab Ondansetron HCl (Zofran Inj) 4 mg IVP Q6HR PRN PRN Reason: Nausea / Vomiting Polyethylene Glycol (Miralax) 17 gm PO DAILY [facility] Last Admin: 09/01/17 09:19 Dose: Not Given Sodium Chloride (Normal Saline Flush 0.9%) 10 ml IVP PRN PRN PRN Reason: NEEDED PER PROVIDER ORDERS Last Admin: 08/31/17 21:28 Dose: 10 ml Sodium Chloride (Normal Saline Flush 0.9%) 10 ml IVP 0100,0900,1700 [facility] Last Admin: 09/01/17 09:18 Dose: Not Given Zolpidem Tartrate (Ambien) 5 mg PO QPM PRN PRN Reason: Insomnia Calcium Carbonate/Vitamin D3 [Calcium 600-Vit D3 800 Tab] 1 tab PO DAILY Carvedilol 12.5 mg PO BID 03/26/16 Meloxicam 15 mg PO DAILY 03/26/16 Warfarin [Coumadin] 5 mg PO DAILY 03/26/16 Lisinopril [Zestril] 5 mg PO DAILY 08/31/17 Loratadine 10 mg PO DAILY 08/31/17 Multivitamin [Theragran] 1 each PO DAILY 08/31/17 Objective - Vital Signs/Intake & Output Reviewed Vital Signs: Yes Vital Signs: Vital Signs x48h Temp Pulse Pulse Resp BP Pulse Ox 09/01/17 12:45 98.9 C H 94 18 87/53 L 95 09/01/17 07:47 37.0 C 96 18 98/60 99 09/01/17 07:45 84 18 Intake & Output: Intake & Output 08/29/17 08/30/17 08/31/17 09/01/17 23:59 23:59 23:59 23:59 Intake Total 251 1200 Output Total 100 800 Balance 151 400 - Objective General Appearance: positive: No acute distress, Alert Eyes Bilateral: positive: Normal inspection, PERRL ENT: positive: ENT inspection nml, Pharynx nml, No signs of dehydration Neck: positive: Nml inspection, Thyroid nml, No JVD, Trachea midline Respiratory: positive: Chest non-tender, No respiratory distress, Breath sounds nml Cardiovascular: positive: Regular rate & rhythm, No gallop, Decreased pulse(s) Peripheral Pulses: 1+ Radial (R), 1+ Radial (L), 1+ Dorsalis pedis (R), 1+ Dorsalis pedis (L) Abdomen: positive: Non-tender, No organomegaly, Nml bowel sounds, No distention Back: positive: Nml inspection Skin: positive: No rash, Warm, Dry, Pallor Extremities: positive: Pedal edema (right hip swollen, fracured. Planned surgery today at 1700.), Joint swelling Neurologic/Psychiatric: positive: Oriented x3, CN's nml (2-12), Motor nml, Sensation nml, Weakness, Depressed mood/affect Reflexes: Bicep (R): 2+, Bicep (L): 2+ - Lab Results Fish Bones: 09/01/17 05:35 09/01/17 05:35 Other Labs: Lab Results x24hrs 09/01/17 09/01/17 09/01/17 Range/Units 12:58 05:35 05:35 WBC (4.8-10.8) x10^3/uL RBC (4.70-6.10) 10^6/uL Hgb (14.0-18.0) g/dL Hct (42.0-52.0) % MCV (80.0-94.0) fL MCH (27.0-31.0) pg MCHC (32.0-36.0) g/dL RDW (12.0-15.0) % Plt Count (130-450) 10^3/uL MPV (7.4-11.4) fL Neut # (1.5-6.6) 10^3/uL Lymph # (1.5-3.5) 10^3/uL [place] # (0.0-1.0) 10^3/uL Eos # (0.0-0.7) 10^3/uL Baso # (0.0-0.1) 10^3/uL Absolute Nucleated RBC x10^3/uL Nucleated RBC % /100WBC PT 17.6 H 22.5 H (9.9-12.6) secs INR 1.6 H 2.0 H (0.8-1.2) Sodium 131 L (135-145) mmol/L Potassium 4.7 (3.5-5.0) mmol/L Chloride 100 L (101-111) mmol/L Carbon Dioxide 24 (21-32) mmol/L Anion Gap 7.0 (6-13) BUN 36 H (6-20) mg/dL Creatinine 1.1 (0.6-1.2) mg/dL Estimated GFR (MDRD) 64 L (>89) Glucose 117 H (70-100) mg/dL Calcium 8.3 L (8.5-10.3) mg/dL Magnesium 1.8 (1.7-2.8) mg/dL Total Bilirubin 2.4 H (0.2-1.0) mg/dL AST 23 (10-42) IU/L ALT 16 (10-60) IU/L Alkaline Phosphatase 34 L (42-121) IU/L Total Protein 5.8 L (6.7-8.2) g/dL Albumin 3.3 (3.2-5.5) g/dL Globulin 2.5 (2.1-4.2) g/dL Albumin/Globulin Ratio 1.3 (1.0-2.2) Urine Color Urine Clarity (CLEAR) Urine pH (5.0-7.5) PH Ur Specific Rule (1.002-1.030) Urine Protein (NEGATIVE) mg/dL Urine Glucose (UA) (NEGATIVE) mg/dL Urine Ketones (NEGATIVE) mg/dL Urine Occult Blood (NEGATIVE) Urine Nitrite (NEGATIVE) Urine Bilirubin (NEGATIVE) Urine Urobilinogen (NORMAL) E.U./dL Ur Leukocyte Esterase (NEGATIVE) Urine RBC (0-5) /HPF Urine WBC (0-3) /HPF Ur Squamous Epith Cells (<= Few) Urine Bacteria (None Seen) /HPF Urine Mucus Urine Culture Comments 09/01/17 08/31/17 Range/Units 05:35 21:30 WBC 11.1 H (4.8-10.8) x10^3/uL RBC 3.84 L (4.70-6.10) 10^6/uL Hgb 12.3 L (14.0-18.0) g/dL Hct 37.1 L (42.0-52.0) % MCV 96.5 H (80.0-94.0) fL MCH 32.1 H (27.0-31.0) pg MCHC 33.2 (32.0-36.0) g/dL RDW 13.4 (12.0-15.0) % Plt Count 130 (130-450) 10^3/uL MPV 7.5 (7.4-11.4) fL Neut # 8.8 H (1.5-6.6) 10^3/uL Lymph # 1.7 (1.5-3.5) 10^3/uL [place] # 0.3 (0.0-1.0) 10^3/uL Eos # 0.2 (0.0-0.7) 10^3/uL Baso # 0.0 (0.0-0.1) 10^3/uL Absolute Nucleated RBC 0.00 x10^3/uL Nucleated RBC % 0.0 /100WBC PT (9.9-12.6) secs INR (0.8-1.2) Sodium (135-145) mmol/L Potassium (3.5-5.0) mmol/L Chloride (101-111) mmol/L Carbon Dioxide (21-32) mmol/L Anion Gap (6-13) BUN (6-20) mg/dL Creatinine (0.6-1.2) mg/dL Estimated GFR (MDRD) (>89) Glucose (70-100) mg/dL Calcium (8.5-10.3) mg/dL Magnesium (1.7-2.8) mg/dL Total Bilirubin (0.2-1.0) mg/dL AST (10-42) IU/L ALT (10-60) IU/L Alkaline Phosphatase (42-121) IU/L Total Protein (6.7-8.2) g/dL Albumin (3.2-5.5) g/dL Globulin (2.1-4.2) g/dL Albumin/Globulin Ratio (1.0-2.2) Urine Color YELLOW Urine Clarity CLEAR (CLEAR) Urine pH 5.0 (5.0-7.5) PH Ur Specific Rule 1.025 (1.002-1.030) Urine Protein NEGATIVE (NEGATIVE) mg/dL Urine Glucose (UA) NEGATIVE (NEGATIVE) mg/dL Urine Ketones 15 H (NEGATIVE) mg/dL Urine Occult Blood NEGATIVE (NEGATIVE) Urine Nitrite NEGATIVE (NEGATIVE) Urine Bilirubin NEGATIVE (NEGATIVE) Urine Urobilinogen 0.2 (NORMAL) (NORMAL) E.U./dL Ur Leukocyte Esterase NEGATIVE (NEGATIVE) Urine RBC None Seen (0-5) /HPF Urine WBC 0-3 (0-3) /HPF Ur Squamous Epith Cells RARE Squamous (<= Few) Urine Bacteria None Seen (None Seen) /HPF Urine Mucus Few Strands Urine Culture Comments NOT INDICATED - Diagnostic Imaging Diagnostic Imaging Results: positive: Final report reviewed ABX Reporting Has patient been on IV antibiotics over the past 48 hours?: Yes Assessment/Plan - Problem List (1) Femoral neck fracture Impression: The patient was enjoying some yard work, and had an accidental fall, thereby fracturing his right hip, leaving a non-displaced femoral neck fracture. Dr. Mac will perform a repair today after 5pm since the patient's INR is now down to 1.6. Plan: PT/OT and likely SNF for rehab in the next 2-3 days. Qualifiers: Encounter type: initial encounter Fracture type: closed Laterality: right Qualified Code(s): S72.001A - Fracture of unspecified part of neck of right femur, initial encounter for closed fracture (2) HTN (hypertension) Impression: The patient's blood pressure prior to surgery was 108/59 and takes lisinopril and Coreg at home. Plan: continue to monitor vital signs and telemetry. Qualifiers: Hypertension type: essential hypertension Qualified Code(s): I10 - Essential (primary) hypertension (3) Afib Impression: The patient has a known history of this and is anticoagulated at home with Warfarin. Due to his hip fracture this is now on hold. His INR levels trended downward from 2.6, 2.0 and 1.6 prior to surgery. EKG completed upon admission shows a-fib. His home coreg is now on hold and IV metoprolol has been scheduled due to ongoing tachycardia. Records from [facility] were obtained for the most recent echocardiogram. Plan: Continue telemetry and Coreg for rate control. Qualifiers: Atrial fibrillation type: chronic Qualified Code(s): I48.2 - Chronic atrial fibrillation (4) Hyponatremia Impression: The patient was found to be mildly hyponatremic with a low sodium of 133 upon admission that is now slightly worsened at 131. He has been on gentle IVFs. Plan: Continue to monitor, and treat with fluid restrictions/IVFs. (5) Leukocytosis Impression: The patient was found to have an elevated WBC count of 15.5 upon admission that is down today at 11.1. He has no obvious signs of infection other than this finding. Plan: Continue to monitor labs. (6) Nodule of right lung Impression: There is a 7 mm nodule in the right midlung which has been noted before this admission, as the radiologist notes "unchanged". Chest x-ray was negative for signs of pneumonia. Plan: This will be addressed after his hip surgery. (7) Valvular cardiomyopathy Impression: As per echo report from 08/25/17 at [facility] cardiology the patient is noted to have moderate mitral regurg, which is causing this cardiomyopathy. The patient has a reduced EF of 50%. Plan: Continue to monitor especially in the post-op phase for fluid overload. Patient will be encouraged to follow up with cardiology for the possibility of valve repair in the near future. (8) Systolic left-sided congestive heart failure, NYHA class 1 Impression: A faxed Echo report that was completed on 08/25/17 at [facility] cardiology was obtained which shows a minimally decreased LV EF of 50%, and mitral regurg which is noted as moderate. He takes Coreg at home for rate control of his atrial fibrillation. Plan: Continue to monitor for post-op fluid overload, control heart rate using beta blockers and avoid ARBs in general.
[2017-09-01] MEDS ORDERED: ceFAZolin 2 GM/50 ML 2 GM/50 ML BAG IV ONE (14:45)
[2017-09-01] MEDS ORDERED: BUPIVACAINE 0.5% PF 30 ML VIAL ONE (14:54)
[2017-09-01] MEDS ORDERED: LACTATED RINGERS 1,000 ML IV ONE ×4 (17:00→19:53)
[2017-09-01] MEDS ORDERED: BUPIVACAINE 0.5%-EPI 1:200000 PF 30 ML VIAL SUBQ ONE (17:36)
[2017-09-01] MEDS ORDERED: BUPIVACAINE 0.5% PF 30 ML VIAL SUBQ ONE ×2 (17:36)
[2017-09-01] MEDS ORDERED: BUPIVACAINE 0.5%-EPI 1:200000 PF 30 ML VIAL ONE (17:52)
[2017-09-01] MEDS ORDERED: NEOSTIGMINE 1 MG/1 ML 10 ML MDV IVP ONE (18:13)
[2017-09-01] MEDS ORDERED: GLYCOPYRROLATE 1 MG/5 ML VIAL IVP ONE (18:13)
[2017-09-01] MEDS ORDERED: ROCURONIUM 50 MG/5 ML VIAL IVP ONE (18:13)
[2017-09-01] MEDS ORDERED: ONDANSETRON 4 MG/2 ML VIAL IVP ONE (18:13)
[2017-09-01] MEDS ORDERED: ePHEDrine 50 MG/ML VIAL IVP ONE (18:13)
[2017-09-01] MEDS ORDERED: PROPOFOL 200 MG/20 ML VIAL IVP ONE (18:13)
[2017-09-01] MEDS ORDERED: LIDOCAINE-MPF 2% 5 ML VIAL IM ONE (18:13)
[2017-09-01] MEDS ORDERED: ceFAZolin 1 GM VIAL IV ONE (18:13)
[2017-09-01] MEDS ORDERED: MORPHINE 10 MG/ML VIAL IVP ONE (18:13)
--- NOTE | 2017-09-01 19:54 | OPERATIVE REPORT ---
Operative Report - General Admit Date: 08/31/17 Procedure Date: 09/01/17 Planned Procedure: Hemiarthroplasty right hip Pre-Op Diagnosis: Right femoral neck fracture Procedure Performed: Right hip Hemiarthroplasty Post Op Diagnosis: same - Procedure Note Primary Surgeon: Felicia Secondary Surgeon: neno Anesthesia Technique: General LMA Estimated Blood Loss (mL): 400 - Other Other Information/Narrative: Implants [employer] taperloc 2 #14 lateralized stem, +0 neck 47 mm head
[2017-09-01] MEDS ORDERED: BENZOCAINE/MENTHOL LOZENGE MM PRN (20:58)
[2017-09-01 21:41] LABS: HGB - HEMOGLOBIN 11.9 g/dL (14.0-18.0)
[2017-09-01] MEDS: SODIUM CHLORIDE FLUSH 0.9% 10 ML SYRINGE IVP PRN (21:47)
[2017-09-01] MEDS: METOPROLOL 5 MG/5 ML VIAL IVP SCH (21:48)
--- NOTE | 2017-09-01 22:19 | XRAY Preliminary Report ---
Exam: XR HIP W/PELVIS 2-3V RT IMPRESSION: Expected of postoperative appearance of right hip arthroplasty. [facility] SITE ID: [id number]
--- NOTE | 2017-09-01 22:27 | XRAY Report ---
EXAM: RIGHT HIP RADIOGRAPHY EXAM DATE: 09/01/2017 08:23 PM. CLINICAL HISTORY: Post op. COMPARISON: Right hip radiographs 08/31/[address] of the right hip without contrast 08/31/2017. TECHNIQUE: 2 views. FINDINGS: Bones and Joints: No fractures or bone lesion. A right hip arthroplasty has been performed. No disloc ation. Components in expected orientation. The contralateral hip and other joint spaces are unremarka ble. Soft Tissues: Expected postoperative findings present about the right hip including subcutaneous gas. IMPRESSION: Expected postoperative appearance of right hip arthroplasty. [facility] Referring Provider Line: [phone] SITE ID: [id number]
[2017-09-02] MEDS: SODIUM CHLORIDE FLUSH 0.9% 10 ML SYRINGE IVP SCH ×3 (00:12→20:25)
[2017-09-02] MEDS: METOPROLOL 5 MG/5 ML VIAL IVP SCH ×3 (03:26→13:05)
[2017-09-02] MEDS: SODIUM CHLORIDE 0.9% 1,000 ML IV SCH ×2 (06:04→17:55)
[2017-09-02 06:08] LABS: BASOPHILS % (AUTO) 0.2 %; EOSINOPHILS # (AUTO) 0.2 10^3/uL (0.0-0.7); EOSINOPHILS % (AUTO) 2.4 %; HGB - HEMOGLOBIN 10.6 g/dL (14.0-18.0); LYMPHOCYTES # (AUTO) 1.2 10^3/uL (1.5-3.5); LYMPHOCYTES % (AUTO) 13.2 %; MEAN CORPUSCULAR HEMOGLOBIN 32.7 pg (27.0-31.0); MEAN CORPUSCULAR HGB CONC 33.5 g/dL (32.0-36.0); MEAN CORPUSCULAR VOLUME 97.8 fL (80.0-94.0); MEAN PLATELET VOLUME 8.1 fL (7.4-11.4); MONOCYTES # (AUTO) 0.3 10^3/uL (0.0-1.0); MONOCYTES % (AUTO) 3.2 %; NEUTROPHILS # (AUTO) 7.6 10^3/uL (1.5-6.6); PLT - PLATELET COUNT 112 10^3/uL (130-450); RED BLOOD COUNT 3.25 10^6/uL (4.70-6.10); RED CELL DISTRIBUTION WIDTH 13.2 % (12.0-15.0); WHITE BLOOD COUNT 9.4 x10^3/uL (4.8-10.8)
[2017-09-02 06:15] LABS: INR 1.4 (0.8-1.2); PT - PROTHROMBIN TIME 15.8 secs (9.9-12.6)
[2017-09-02 06:25] LABS: ALBUMIN 3.2 g/dL (3.2-5.5); ALBUMIN/GLOBULIN RATIO 1.5 (1.0-2.2); BILIRUBIN,TOTAL 1.8 mg/dL (0.2-1.0); CALCIUM 7.7 mg/dL (8.5-10.3); CREATININE 0.9 mg/dL (0.6-1.2); TOTAL PROTEIN 5.4 g/dL (6.7-8.2)
[2017-09-02] MEDS: POLYETHYLENE GLYCOL 3350 17 GM PACKET PO SCH (08:55)
[2017-09-02] MEDS: MULTIVITAMIN TABLET PO SCH (08:56)
[2017-09-02] MEDS: CALCIUM CARBONATE CHEW 500 MG TABLET PO SCH ×2 (08:56→20:53)
[2017-09-02] MEDS: LORATADINE 10 MG TABLET PO SCH (08:56)
[2017-09-02] MEDS: CHOLECALCIFEROL 400 UNIT TABLET PO SCH (08:57)
[2017-09-02] MEDS: FAMOTIDINE 20 MG TABLET PO SCH (08:57)
[2017-09-02] MEDS: ENOXAPARIN 40 MG/0.4 ML SYRINGE SUBQ SCH (08:58)
--- NOTE | 2017-09-02 09:36 | PROVIDER PROGRESS NOTE ---
Subjective - General Admit Date: 08/31/17 Procedure Date: 09/01/17 Post Op Days: 1 Procedure Performed: Right hip hemiarthroplasty - Review of Systems Wound/Incisions: positive: Drainage General: positive: No symptoms (No pain at rest.) Objective - Patient Data Vital Signs: Vital Signs x48h Temp Pulse Resp BP BP Pulse Ox 09/02/17 07:54 36.7 C 72 20 109/61 94 09/02/17 03:26 112/58 L Weight: Weight 08/31/17 09/01/17 09/02/17 23:59 23:59 23:59 Weight (kg) 95 kg Intake & Output: Intake and Output Totals x24h 08/31/17 09/01/17 09/02/17 23:59 23:59 23:59 Intake Total 251 2250 500 Output Total 100 1100 400 Balance 151 1150 100 - Lab Results Lab Results: 09/02/17 05:35 09/02/17 05:35 Other Lab Results: Lab Results x24hrs 09/02/17 09/02/17 09/02/17 Range/Units 05:35 05:35 05:35 WBC 9.4 (4.8-10.8) x10^3/uL RBC 3.25 L (4.70-6.10) 10^6/uL Hgb 10.6 L (14.0-18.0) g/dL Hct 31.8 L (42.0-52.0) % MCV 97.8 H (80.0-94.0) fL MCH 32.7 H (27.0-31.0) pg MCHC 33.5 (32.0-36.0) g/dL RDW 13.2 (12.0-15.0) % Plt Count 112 L (130-450) 10^3/uL MPV 8.1 (7.4-11.4) fL Neut # 7.6 H (1.5-6.6) 10^3/uL Lymph # 1.2 L (1.5-3.5) 10^3/uL [place] # 0.3 (0.0-1.0) 10^3/uL Eos # 0.2 (0.0-0.7) 10^3/uL Baso # 0.0 (0.0-0.1) 10^3/uL Absolute Nucleated RBC 0.00 x10^3/uL Nucleated RBC % 0.0 /100WBC PT 15.8 H (9.9-12.6) secs INR 1.4 H (0.8-1.2) Sodium 131 L (135-145) mmol/L Potassium 4.7 (3.5-5.0) mmol/L Chloride 100 L (101-111) mmol/L Carbon Dioxide 24 (21-32) mmol/L Anion Gap 7.0 (6-13) BUN 31 H (6-20) mg/dL Creatinine 0.9 (0.6-1.2) mg/dL Estimated GFR (MDRD) 81 L (>89) Glucose 105 H (70-100) mg/dL Calcium 7.7 L (8.5-10.3) mg/dL Total Bilirubin 1.8 H (0.2-1.0) mg/dL AST 28 (10-42) IU/L ALT 14 (10-60) IU/L Alkaline Phosphatase 31 L (42-121) IU/L Total Protein 5.4 L (6.7-8.2) g/dL Albumin 3.2 (3.2-5.5) g/dL Globulin 2.2 (2.1-4.2) g/dL Albumin/Globulin Ratio 1.5 (1.0-2.2) Blood Type Blood Type Recheck Antibody Screen Crossmatch IS Only 09/01/17 09/01/17 09/01/17 Range/Units 21:34 16:54 12:58 WBC (4.8-10.8) x10^3/uL RBC (4.70-6.10) 10^6/uL Hgb 11.9 L (14.0-18.0) g/dL Hct 35.8 L (42.0-52.0) % MCV (80.0-94.0) fL MCH (27.0-31.0) pg MCHC (32.0-36.0) g/dL RDW (12.0-15.0) % Plt Count (130-450) 10^3/uL MPV (7.4-11.4) fL Neut # (1.5-6.6) 10^3/uL Lymph # (1.5-3.5) 10^3/uL [place] # (0.0-1.0) 10^3/uL Eos # (0.0-0.7) 10^3/uL Baso # (0.0-0.1) 10^3/uL Absolute Nucleated RBC x10^3/uL Nucleated RBC % /100WBC PT 17.6 H (9.9-12.6) secs INR 1.6 H (0.8-1.2) Sodium (135-145) mmol/L Potassium (3.5-5.0) mmol/L Chloride (101-111) mmol/L Carbon Dioxide (21-32) mmol/L Anion Gap (6-13) BUN (6-20) mg/dL Creatinine (0.6-1.2) mg/dL Estimated GFR (MDRD) (>89) Glucose (70-100) mg/dL Calcium (8.5-10.3) mg/dL Total Bilirubin (0.2-1.0) mg/dL AST (10-42) IU/L ALT (10-60) IU/L Alkaline Phosphatase (42-121) IU/L Total Protein (6.7-8.2) g/dL Albumin (3.2-5.5) g/dL Globulin (2.1-4.2) g/dL Albumin/Globulin Ratio (1.0-2.2) Blood Type A POSITIVE Blood Type Recheck Antibody Screen NEGATIVE Crossmatch IS Only See Detail 09/01/17 Range/Units 05:35 WBC (4.8-10.8) x10^3/uL RBC (4.70-6.10) 10^6/uL Hgb (14.0-18.0) g/dL Hct (42.0-52.0) % MCV (80.0-94.0) fL MCH (27.0-31.0) pg MCHC (32.0-36.0) g/dL RDW (12.0-15.0) % Plt Count (130-450) 10^3/uL MPV (7.4-11.4) fL Neut # (1.5-6.6) 10^3/uL Lymph # (1.5-3.5) 10^3/uL [place] # (0.0-1.0) 10^3/uL Eos # (0.0-0.7) 10^3/uL Baso # (0.0-0.1) 10^3/uL Absolute Nucleated RBC x10^3/uL Nucleated RBC % /100WBC PT (9.9-12.6) secs INR (0.8-1.2) Sodium (135-145) mmol/L Potassium (3.5-5.0) mmol/L Chloride (101-111) mmol/L Carbon Dioxide (21-32) mmol/L Anion Gap (6-13) BUN (6-20) mg/dL Creatinine (0.6-1.2) mg/dL Estimated GFR (MDRD) (>89) Glucose (70-100) mg/dL Calcium (8.5-10.3) mg/dL Total Bilirubin (0.2-1.0) mg/dL AST (10-42) IU/L ALT (10-60) IU/L Alkaline Phosphatase (42-121) IU/L Total Protein (6.7-8.2) g/dL Albumin (3.2-5.5) g/dL Globulin (2.1-4.2) g/dL Albumin/Globulin Ratio (1.0-2.2) Blood Type Blood Type Recheck A POSITIVE Antibody Screen Crossmatch IS Only - Imaging Results Radiology Imaging: positive: EMP read indepedently (Right Hip Post-op Good fit and length of prosthesis) - Current Medications Current Medications: Current Medications Generic Name Dose Route Start Last Admin Trade Name Lionq PRN Reason Stop Dose Admin Acetaminophen 650 mg 08/31/17 17:36 08/31/17 21:28 Tylenol PO 650 mg Q4HR PRN Administration Pain 1 to 4 Calcium Carbonate/Glycine 500 mg 08/31/17 21:00 09/01/17 21:47 Tums PO 500 mg BID LARRY Administration Cholecalciferol 800 unit 09/01/17 09:00 09/01/17 09:17 Vitamin D3 PO 800 unit DAILY LARRY Administration Enoxaparin Sodium 40 mg 09/01/17 09:00 09/01/17 09:17 Lovenox SUBQ Not Given DAILY LARRY Famotidine 20 mg 09/01/17 09:00 09/01/17 09:17 Pepcid PO 20 mg DAILY [facility]ARRY Administration Sodium Chloride 1,000 mls @ 85 mls/hr 08/31/17 18:00 09/02/17 06:04 Normal Saline 0.9% IV 85 mls/hr .[id number] [facility]Y Administration Loratadine 10 mg 09/01/17 09:00 09/01/17 09:17 Claritin PO 10 mg DAILY LARRY Administration Metoprolol Tartrate 5 mg 09/01/17 18:00 09/02/17 03:26 Lopressor Inj IVP 5 mg Q6HR LARRY Administration Morphine Sulfate 2 mg 08/31/17 17:36 08/31/17 22:32 Morphine IVP 2 mg Q2H PRN Administration Pain 8 to 10 Multivitamins 1 tab 09/01/17 09:00 09/01/17 09:17 Theragran PO 1 tab DAILY LARRY Administration Polyethylene Glycol 17 gm 09/01/17 09:00 09/01/17 09:19 Miralax PO Not Given DAILY LARRY Sodium Chloride 10 ml 08/31/17 17:36 09/01/17 21:47 Normal Saline Flush 0.9% IVP 10 ml PRN PRN Administration NEEDED PER PROVIDER ORDERS Sodium Chloride 10 ml 09/01/17 01:00 09/02/17 00:12 Normal Saline Flush 0.9% IVP Not Given 0100,0900,1700 [facility], [facility] - Physical Exam Extremities: positive: Other (Sudden discharge of blood from proximal corner of wound a few minutes ago. Possible with change of position. Dressing removed. Pressure held for 5 minutes. [place] Occlusive dressing applied with "pressure rolls " of 4by4 and Naren Wrap around waist and thigh to keep pressure.) Neurologic/Psychiatric: positive: Oriented x3, Motor nml, Sensation nml Comments/Other: Hgb 10.6 INR 1.4 Impression/Plan - Problem List Problem List: 1. Anemia of acute blood loss 2. Good placement of prostheses 3. Hematoma drainage. Bedrest today. COnsider FFP Will discuss with [facility]ist.
[2017-09-02] MEDS: ACETAMINOPHEN 325 MG TABLET PO PRN ×2 (12:11→20:53)
--- NOTE | 2017-09-02 12:27 | PROVIDER PROGRESS NOTE ---
Subjective - Prog Note Date Prog Note Date: 09/02/17 Prog Note Time: 12:24 - Subjective Pt reports feeling: Improved Subjective: Jovan has no complaints. He denies SOB, chest pain, N/V or a new cough. Current Medications - Current Medications Current Medications: Active Medications Acetaminophen (Tylenol) 650 mg PO Q4HR PRN PRN Reason: Pain 1 to 4 Last Admin: 09/03/17 01:45 Dose: 650 mg Calcium Carbonate/Glycine (Tums) 500 mg PO BID [facility] Last Admin: 09/03/17 08:47 Dose: 500 mg Carvedilol (Coreg) 12.5 mg PO BID [facility] Last Admin: 09/03/17 08:47 Dose: 12.5 mg Cholecalciferol (Vitamin D3) 800 unit PO DAILY [facility] Last Admin: 09/03/17 08:47 Dose: 800 unit Enoxaparin Sodium (Lovenox) 40 mg SUBQ DAILY [facility] Last Admin: 09/03/17 13:13 Dose: Not Given Famotidine (Pepcid) 20 mg PO DAILY [facility] Last Admin: 09/03/17 08:47 Dose: 20 mg Loratadine (Claritin) 10 mg PO DAILY [facility] Last Admin: 09/03/17 08:47 Dose: 10 mg Metoprolol Tartrate (Lopressor Inj) 5 mg IVP Q6H PRN PRN Reason: SEE COMMENTS Morphine Sulfate (Morphine) 2 mg IVP Q2H PRN PRN Reason: Pain 8 to 10 Last Admin: 09/03/17 13:13 Dose: 2 mg Multivitamins (Theragran) 1 tab PO DAILY [facility] Last Admin: 09/03/17 08:47 Dose: 1 tab Ondansetron HCl (Zofran Inj) 4 mg IVP Q6HR PRN PRN Reason: Nausea / Vomiting Polyethylene Glycol (Miralax) 17 gm PO DAILY [facility] Last Admin: 09/03/17 08:44 Dose: 17 gm Sodium Chloride (Normal Saline Flush 0.9%) 10 ml IVP PRN PRN PRN Reason: NEEDED PER PROVIDER ORDERS Last Admin: 09/03/17 04:25 Dose: 10 ml Sodium Chloride (Normal Saline Flush 0.9%) 10 ml IVP 0100,0900,1700 [facility] Last Admin: 09/03/17 16:35 Dose: 10 ml Sodium Chloride ([place]) 2 sprays GEENA BID [facility]ARR[facility] Last Admin: 09/03/17 08:48 Dose: 2 sprays Throat Lozenges (Cepacol) 1 lozenge MM Q2HR PRN PRN Reason: Throat pain Zolpidem Tartrate (Ambien) 5 mg PO QPM PRN PRN Reason: Insomnia Calcium Carbonate/Vitamin D3 [Calcium 600-Vit D3 800 Tab] 1 tab PO DAILY Carvedilol 12.5 mg PO BID 03/26/16 Meloxicam 15 mg PO DAILY 03/26/16 Warfarin [Coumadin] 5 mg PO DAILY 03/26/16 Lisinopril [Zestril] 5 mg PO DAILY 08/31/17 Loratadine 10 mg PO DAILY 08/31/17 Multivitamin [Theragran] 1 each PO DAILY 08/31/17 Objective - Vital Signs/Intake & Output Vital Signs: Vital Signs x48h Temp Pulse Resp BP BP Pulse Ox 09/02/17 09:40 103/53 L 09/02/17 07:54 36.7 C 72 20 109/61 94 Intake & Output: Intake & Output 08/30/17 08/31/17 09/01/17 09/02/17 23:59 23:59 23:59 23:59 Intake Total 251 2250 980 Output Total 100 1100 400 Balance 151 1150 580 - Objective General Appearance: positive: No acute distress, Alert, Mild distress Eyes Bilateral: positive: PERRL Eyes: OU Conjunctivae pale ENT: positive: ENT inspection nml, Pharynx nml, Pharyngeal erythema, Dry mucous membranes Neck: positive: Nml inspection, Thyroid nml, No JVD, Trachea midline Respiratory: positive: Chest non-tender, No respiratory distress, Other ( diminshed.) Cardiovascular: positive: Regular rate & rhythm, No gallop, Tachycardia, Systolic murmur, Decreased pulse(s) Peripheral Pulses: 2+ Radial (R), 2+ Radial (L) Abdomen: positive: Non-tender, Nml bowel sounds Back: positive: Nml inspection Skin: positive: No rash, Warm, Dry, Pallor Extremities: positive: Non-tender, Pedal edema (mild BLE), Joint swelling Neurologic/Psychiatric: positive: Oriented x3, CN's nml (2-12), Motor nml, Sensation nml, Depressed mood/affect Reflexes: Bicep (R): 2+, Bicep (L): 2+ - Lab Results Fish Bones: 09/03/17 05:44 09/03/17 05:44 Other Labs: Lab Results x24hrs 09/02/17 09/02/17 09/02/17 Range/Units 05:35 05:35 05:35 WBC 9.4 (4.8-10.8) x10^3/uL RBC 3.25 L (4.70-6.10) 10^6/uL Hgb 10.6 L (14.0-18.0) g/dL Hct 31.8 L (42.0-52.0) % MCV 97.8 H (80.0-94.0) fL MCH 32.7 H (27.0-31.0) pg MCHC 33.5 (32.0-36.0) g/dL RDW 13.2 (12.0-15.0) % Plt Count 112 L (130-450) 10^3/uL MPV 8.1 (7.4-11.4) fL Neut # 7.6 H (1.5-6.6) 10^3/uL Lymph # 1.2 L (1.5-3.5) 10^3/uL [place] # 0.3 (0.0-1.0) 10^3/uL Eos # 0.2 (0.0-0.7) 10^3/uL Baso # 0.0 (0.0-0.1) 10^3/uL Absolute Nucleated RBC 0.00 x10^3/uL Nucleated RBC % 0.0 /100WBC PT 15.8 H (9.9-12.6) secs INR 1.4 H (0.8-1.2) Sodium 131 L (135-145) mmol/L Potassium 4.7 (3.5-5.0) mmol/L Chloride 100 L (101-111) mmol/L Carbon Dioxide 24 (21-32) mmol/L Anion Gap 7.0 (6-13) BUN 31 H (6-20) mg/dL Creatinine 0.9 (0.6-1.2) mg/dL Estimated GFR (MDRD) 81 L (>89) Glucose 105 H (70-100) mg/dL Calcium 7.7 L (8.5-10.3) mg/dL Total Bilirubin 1.8 H (0.2-1.0) mg/dL AST 28 (10-42) IU/L ALT 14 (10-60) IU/L Alkaline Phosphatase 31 L (42-121) IU/L Total Protein 5.4 L (6.7-8.2) g/dL Albumin 3.2 (3.2-5.5) g/dL Globulin 2.2 (2.1-4.2) g/dL Albumin/Globulin Ratio 1.5 (1.0-2.2) Blood Type Blood Type Recheck Antibody Screen Crossmatch IS Only 09/01/17 09/01/17 09/01/17 Range/Units 21:34 16:54 12:58 WBC (4.8-10.8) x10^3/uL RBC (4.70-6.10) 10^6/uL Hgb 11.9 L (14.0-18.0) g/dL Hct 35.8 L (42.0-52.0) % MCV (80.0-94.0) fL MCH (27.0-31.0) pg MCHC (32.0-36.0) g/dL RDW (12.0-15.0) % Plt Count (130-450) 10^3/uL MPV (7.4-11.4) fL Neut # (1.5-6.6) 10^3/uL Lymph # (1.5-3.5) 10^3/uL [place] # (0.0-1.0) 10^3/uL Eos # (0.0-0.7) 10^3/uL Baso # (0.0-0.1) 10^3/uL Absolute Nucleated RBC x10^3/uL Nucleated RBC % /100WBC PT 17.6 H (9.9-12.6) secs INR 1.6 H (0.8-1.2) Sodium (135-145) mmol/L Potassium (3.5-5.0) mmol/L Chloride (101-111) mmol/L Carbon Dioxide (21-32) mmol/L Anion Gap (6-13) BUN (6-20) mg/dL Creatinine (0.6-1.2) mg/dL Estimated GFR (MDRD) (>89) Glucose (70-100) mg/dL Calcium (8.5-10.3) mg/dL Total Bilirubin (0.2-1.0) mg/dL AST (10-42) IU/L ALT (10-60) IU/L Alkaline Phosphatase (42-121) IU/L Total Protein (6.7-8.2) g/dL Albumin (3.2-5.5) g/dL Globulin (2.1-4.2) g/dL Albumin/Globulin Ratio (1.0-2.2) Blood Type A POSITIVE Blood Type Recheck Antibody Screen NEGATIVE Crossmatch IS Only See Detail 09/01/17 Range/Units 05:35 WBC (4.8-10.8) x10^3/uL RBC (4.70-6.10) 10^6/uL Hgb (14.0-18.0) g/dL Hct (42.0-52.0) % MCV (80.0-94.0) fL MCH (27.0-31.0) pg MCHC (32.0-36.0) g/dL RDW (12.0-15.0) % Plt Count (130-450) 10^3/uL MPV (7.4-11.4) fL Neut # (1.5-6.6) 10^3/uL Lymph # (1.5-3.5) 10^3/uL [place] # (0.0-1.0) 10^3/uL Eos # (0.0-0.7) 10^3/uL Baso # (0.0-0.1) 10^3/uL Absolute Nucleated RBC x10^3/uL Nucleated RBC % /100WBC PT (9.9-12.6) secs INR (0.8-1.2) Sodium (135-145) mmol/L Potassium (3.5-5.0) mmol/L Chloride (101-111) mmol/L Carbon Dioxide (21-32) mmol/L Anion Gap (6-13) BUN (6-20) mg/dL Creatinine (0.6-1.2) mg/dL Estimated GFR (MDRD) (>89) Glucose (70-100) mg/dL Calcium (8.5-10.3) mg/dL Total Bilirubin (0.2-1.0) mg/dL AST (10-42) IU/L ALT (10-60) IU/L Alkaline Phosphatase (42-121) IU/L Total Protein (6.7-8.2) g/dL Albumin (3.2-5.5) g/dL Globulin (2.1-4.2) g/dL Albumin/Globulin Ratio (1.0-2.2) Blood Type Blood Type Recheck A POSITIVE Antibody Screen Crossmatch IS Only - Diagnostic Imaging Diagnostic Imaging Results: positive: Final report reviewed ABX Reporting Has patient been on IV antibiotics over the past 48 hours?: No Assessment/Plan - Problem List (1) Femoral neck fracture Impression: The patient was enjoying some yard work, and had an accidental fall, thereby fracturing his right hip, leaving a non-displaced femoral neck fracture. The patient is now post-op and Dr. Mac performed a repair. INR is now down to 1.4. Lovenox was held today due to a post-op complication of bleeding from the surgical sight. Plan: PT/OT and likely SNF for rehab in the next 2-3 days. Qualifiers: Encounter type: initial encounter Fracture type: closed Laterality: right Qualified Code(s): S72.001A - Fracture of unspecified part of neck of right femur, initial encounter for closed fracture (2) HTN (hypertension) Impression: The patient's blood pressure prior to surgery was 120/60 and takes lisinopril and Coreg at home. During surgery the Coreg was on hold and he was given IV metoprolol that has now been discontinued. Coreg was resumed. The patient continues to be tachycardic. Plan: continue to monitor vital signs. Qualifiers: Hypertension type: essential hypertension Qualified Code(s): I10 - Essential (primary) hypertension (3) Afib Impression: The patient has a known history of this and is anticoagulated at home with Warfarin. Due to his hip fracture this is now on hold. His INR levels trended downward from 2.6, 2.0 and 1.6 prior to surgery. EKG completed upon admission shows a-fib. His home coreg has been resumed but still has ongoing tachycardia. Records from [facility] were obtained for the most recent echocardiogram. Plan: Continue Coreg for rate control. Qualifiers: Atrial fibrillation type: chronic Qualified Code(s): I48.2 - Chronic atrial fibrillation (4) Hyponatremia Impression: The patient was found to be mildly hyponatremic with a low sodium of 133 upon admission that is now slightly worsened at 131. IVFs have been stopped due to overall heart condition. Plan: Continue to monitor daily labs. (5) Leukocytosis Impression: The patient was found to have an elevated WBC count of 15.5 upon admission that is down today at 9.4. He has no obvious signs of infection other than this finding. Plan: Continue to monitor labs. (6) Valvular cardiomyopathy Impression: As per echo report from 08/25/17 at [facility] cardiology the patient is noted to have moderate mitral regurg, which is causing this cardiomyopathy. The patient has a reduced EF of 50%. Plan: Continue to monitor especially in the post-op phase for fluid overload. Patient will be encouraged to follow up with cardiology for the possibility of valve repair in the near future. (7) Systolic left-sided congestive heart failure, NYHA class 1 Impression: A faxed Echo report that was completed on 08/25/17 at [facility] was obtained which shows a minimally decreased LV EF of 50%, and mitral regurg which is noted as moderate. He takes Coreg at home for rate control of his atrial fibrillation. Plan: Continue to monitor for post-op fluid overload, control heart rate using beta blockers and avoid ARBs in general. (9) Post-operative state Impression: The patient underwent a repair of his right femur with Dr. Mac late yesterday. He is post op day #1. He has had some drainage related to merely his anatomy and how his muscles lie. Dr. Mac reported to me in person and suggests serial labs to assess blood loss. Plan: Order CBC and await results.
[2017-09-02] MEDS: MORPHINE 2 MG/ML SYRINGE IVP PRN (12:57)
[2017-09-02] MEDS ORDERED: METOPROLOL 5 MG/5 ML VIAL IVP SCH (13:36)
[2017-09-02] MEDS ORDERED: METOPROLOL 5 MG/5 ML VIAL IVP ONE (13:39)
[2017-09-02 14:32] LABS: HGB - HEMOGLOBIN 10.5 g/dL (14.0-18.0); MEAN CORPUSCULAR HEMOGLOBIN 33.5 pg (27.0-31.0); MEAN CORPUSCULAR HGB CONC 34.5 g/dL (32.0-36.0); MEAN CORPUSCULAR VOLUME 97.1 fL (80.0-94.0); RED BLOOD COUNT 3.12 10^6/uL (4.70-6.10); RED CELL DISTRIBUTION WIDTH 13.3 % (12.0-15.0); WHITE BLOOD COUNT 9.6 x10^3/uL (4.8-10.8)
[2017-09-02] MEDS: SODIUM CHLORIDE 0.65% NASAL SPRAY NAS SCH ×2 (15:46→20:59)
[2017-09-02] MEDS: CARVEDILOL 12.5 MG TABLET PO SCH (20:53)
[2017-09-02] MEDS: SODIUM CHLORIDE FLUSH 0.9% 10 ML SYRINGE IVP PRN (21:28)
[2017-09-02] MEDS ORDERED: METOPROLOL 5 MG/5 ML VIAL IVP PRN (22:49)
[2017-09-03] MEDS: SODIUM CHLORIDE FLUSH 0.9% 10 ML SYRINGE IVP SCH ×3 (01:45→16:35)
[2017-09-03] MEDS: ACETAMINOPHEN 325 MG TABLET PO PRN ×2 (01:45→22:32)
[2017-09-03] MEDS: SODIUM CHLORIDE FLUSH 0.9% 10 ML SYRINGE IVP PRN (04:25)
[2017-09-03] MEDS: MORPHINE 2 MG/ML SYRINGE IVP PRN ×2 (04:25→13:13)
[2017-09-03 05:56] LABS: BASOPHILS % (AUTO) 0.4 %; EOSINOPHILS # (AUTO) 0.3 10^3/uL (0.0-0.7); EOSINOPHILS % (AUTO) 3.7 %; HGB - HEMOGLOBIN 9.6 g/dL (14.0-18.0); LYMPHOCYTES # (AUTO) 1.2 10^3/uL (1.5-3.5); LYMPHOCYTES % (AUTO) 15.1 %; MEAN CORPUSCULAR HEMOGLOBIN 32.4 pg (27.0-31.0); MEAN CORPUSCULAR HGB CONC 33.7 g/dL (32.0-36.0); MEAN CORPUSCULAR VOLUME 96.1 fL (80.0-94.0); MONOCYTES # (AUTO) 0.3 10^3/uL (0.0-1.0); MONOCYTES % (AUTO) 3.2 %; NEUTROPHILS # (AUTO) 6.2 10^3/uL (1.5-6.6); NEUTROPHILS % (AUTO) 77.6 %; PLT - PLATELET COUNT 99 10^3/uL (130-450); RED BLOOD COUNT 2.97 10^6/uL (4.70-6.10)
[2017-09-03 06:00] LABS: INR 1.4 (0.8-1.2); PT - PROTHROMBIN TIME 15.1 secs (9.9-12.6)
[2017-09-03 06:09] LABS: ALBUMIN 2.9 g/dL (3.2-5.5); ALBUMIN/GLOBULIN RATIO 1.3 (1.0-2.2); CALCIUM 7.5 mg/dL (8.5-10.3); CREATININE 0.9 mg/dL (0.6-1.2); TOTAL PROTEIN 5.2 g/dL (6.7-8.2)
[2017-09-03] MEDS: POLYETHYLENE GLYCOL 3350 17 GM PACKET PO SCH (08:44)
[2017-09-03] MEDS: CHOLECALCIFEROL 400 UNIT TABLET PO SCH (08:47)
[2017-09-03] MEDS: MULTIVITAMIN TABLET PO SCH (08:47)
[2017-09-03] MEDS: CALCIUM CARBONATE CHEW 500 MG TABLET PO SCH ×2 (08:47→21:23)
[2017-09-03] MEDS: CARVEDILOL 12.5 MG TABLET PO SCH ×2 (08:47→21:23)
[2017-09-03] MEDS: LORATADINE 10 MG TABLET PO SCH (08:47)
[2017-09-03] MEDS: FAMOTIDINE 20 MG TABLET PO SCH (08:47)
[2017-09-03] MEDS: SODIUM CHLORIDE 0.65% NASAL SPRAY NAS SCH ×2 (08:48→21:23)
[2017-09-03] MEDS: ENOXAPARIN 40 MG/0.4 ML SYRINGE SUBQ SCH (13:13)
--- NOTE | 2017-09-03 18:46 | PROVIDER PROGRESS NOTE ---
Subjective - Prog Note Date Prog Note Date: 09/03/17 Prog Note Time: 14:00 - Subjective Pt reports feeling: Improved Subjective: Jovan offers no complaints and is enjoying his therapy appointments. He denies SOB, chest pain, N/V or a new cough. Current Medications - Current Medications Current Medications: Active Medications Acetaminophen (Tylenol) 650 mg PO Q4HR PRN PRN Reason: Pain 1 to 4 Last Admin: 09/03/17 01:45 Dose: 650 mg Calcium Carbonate/Glycine (Tums) 500 mg PO BID [facility] Last Admin: 09/03/17 08:47 Dose: 500 mg Carvedilol (Coreg) 12.5 mg PO BID [facility] Last Admin: 09/03/17 08:47 Dose: 12.5 mg Cholecalciferol (Vitamin D3) 800 unit PO DAILY [facility] Last Admin: 09/03/17 08:47 Dose: 800 unit Enoxaparin Sodium (Lovenox) 40 mg SUBQ DAILY [facility] Last Admin: 09/03/17 13:13 Dose: Not Given Famotidine (Pepcid) 20 mg PO DAILY [facility] Last Admin: 09/03/17 08:47 Dose: 20 mg Loratadine (Claritin) 10 mg PO DAILY [facility] Last Admin: 09/03/17 08:47 Dose: 10 mg Metoprolol Tartrate (Lopressor Inj) 5 mg IVP Q6H PRN PRN Reason: SEE COMMENTS Morphine Sulfate (Morphine) 2 mg IVP Q2H PRN PRN Reason: Pain 8 to 10 Last Admin: 09/03/17 13:13 Dose: 2 mg Multivitamins (Theragran) 1 tab PO DAILY [facility] Last Admin: 09/03/17 08:47 Dose: 1 tab Ondansetron HCl (Zofran Inj) 4 mg IVP Q6HR PRN PRN Reason: Nausea / Vomiting Polyethylene Glycol (Miralax) 17 gm PO DAILY [facility] Last Admin: 09/03/17 08:44 Dose: 17 gm Sodium Chloride (Normal Saline Flush 0.9%) 10 ml IVP PRN PRN PRN Reason: NEEDED PER PROVIDER ORDERS Last Admin: 09/03/17 04:25 Dose: 10 ml Sodium Chloride (Normal Saline Flush 0.9%) 10 ml IVP 0100,0900,1700 [facility] Last Admin: 09/03/17 16:35 Dose: 10 ml Sodium Chloride ([place]) 2 sprays GEENA BID [facility]ARR[facility] Last Admin: 09/03/17 08:48 Dose: 2 sprays Throat Lozenges (Cepacol) 1 lozenge MM Q2HR PRN PRN Reason: Throat pain Zolpidem Tartrate (Ambien) 5 mg PO QPM PRN PRN Reason: Insomnia Calcium Carbonate/Vitamin D3 [Calcium 600-Vit D3 800 Tab] 1 tab PO DAILY Carvedilol 12.5 mg PO BID 03/26/16 Meloxicam 15 mg PO DAILY 03/26/16 Warfarin [Coumadin] 5 mg PO DAILY 03/26/16 Lisinopril [Zestril] 5 mg PO DAILY 08/31/17 Loratadine 10 mg PO DAILY 08/31/17 Multivitamin [Theragran] 1 each PO DAILY 08/31/17 Objective - Vital Signs/Intake & Output Reviewed Vital Signs: Yes Vital Signs: Vital Signs x48h Temp Pulse Pulse Pulse Resp BP BP 09/03/17 15:59 37.1 C 112 H 24 108/54 L 09/03/17 11:15 127 H 104 H 123/74 BP Pulse Ox 09/03/17 15:59 99 09/03/17 11:15 105/59 L Intake & Output: Intake & Output 08/31/17 09/01/17 09/02/17 09/03/17 23:59 23:59 23:59 23:59 Intake Total 251 2250 2400 1910 Output Total 100 1100 1675 2695 Balance 151 1150 725 -785 - Objective General Appearance: positive: No acute distress, Alert Eyes Bilateral: positive: Normal inspection, PERRL Eyes: OU Conjunctivae pale ENT: positive: ENT inspection nml, Pharynx nml, Pharyngeal erythema, Dry mucous membranes Neck: positive: Nml inspection, Thyroid nml, No JVD - Lab Results Fish Bones: 09/03/17 05:44 09/03/17 05:44 Other Labs: Lab Results x24hrs 09/03/17 09/03/17 09/03/17 Range/Units 05:44 05:44 05:44 WBC (4.8-10.8) x10^3/uL RBC (4.70-6.10) 10^6/uL Hgb (14.0-18.0) g/dL Hct (42.0-52.0) % MCV (80.0-94.0) fL MCH (27.0-31.0) pg MCHC (32.0-36.0) g/dL RDW (12.0-15.0) % Plt Count (130-450) 10^3/uL MPV (7.4-11.4) fL Neut # (1.5-6.6) 10^3/uL Lymph # (1.5-3.5) 10^3/uL [place] # (0.0-1.0) 10^3/uL Eos # (0.0-0.7) 10^3/uL Baso # (0.0-0.1) 10^3/uL Absolute Nucleated RBC x10^3/uL Nucleated RBC % /100WBC PT 15.1 H (9.9-12.6) secs INR 1.4 H (0.8-1.2) Sodium 128 L (135-145) mmol/L Potassium 4.2 (3.5-5.0) mmol/L Chloride 98 L (101-111) mmol/L Carbon Dioxide 24 (21-32) mmol/L Anion Gap 6.0 (6-13) BUN 25 H (6-20) mg/dL Creatinine 0.9 (0.6-1.2) mg/dL Estimated GFR (MDRD) 81 L (>89) Glucose 121 H (70-100) mg/dL Calcium 7.5 L (8.5-10.3) mg/dL Total Bilirubin 2.0 H (0.2-1.0) mg/dL AST 27 (10-42) IU/L ALT 13 (10-60) IU/L Alkaline Phosphatase 32 L (42-121) IU/L B-Natriuretic Peptide 300 H (5-100) pg/mL Total Protein 5.2 L (6.7-8.2) g/dL Albumin 2.9 L (3.2-5.5) g/dL Globulin 2.3 (2.1-4.2) g/dL Albumin/Globulin Ratio 1.3 (1.0-2.2) 05/24/18 Range/Units 05:44 WBC 8.0 (4.8-10.8) x10^3/uL RBC 2.97 L (4.70-6.10) 10^6/uL Hgb 9.6 L (14.0-18.0) g/dL Hct 28.5 L (42.0-52.0) % MCV 96.1 H (80.0-94.0) fL MCH 32.4 H (27.0-31.0) pg MCHC 33.7 (32.0-36.0) g/dL RDW 13.0 (12.0-15.0) % Plt Count 99 L (130-450) 10^3/uL MPV 8.0 (7.4-11.4) fL Neut # 6.2 (1.5-6.6) 10^3/uL Lymph # 1.2 L (1.5-3.5) 10^3/uL [place] # 0.3 (0.0-1.0) 10^3/uL Eos # 0.3 (0.0-0.7) 10^3/uL Baso # 0.0 (0.0-0.1) 10^3/uL Absolute Nucleated RBC 0.00 x10^3/uL Nucleated RBC % 0.0 /100WBC PT (9.9-12.6) secs INR (0.8-1.2) Sodium (135-145) mmol/L Potassium (3.5-5.0) mmol/L Chloride (101-111) mmol/L Carbon Dioxide (21-32) mmol/L Anion Gap (6-13) BUN (6-20) mg/dL Creatinine (0.6-1.2) mg/dL Estimated GFR (MDRD) (>89) Glucose (70-100) mg/dL Calcium (8.5-10.3) mg/dL Total Bilirubin (0.2-1.0) mg/dL AST (10-42) IU/L ALT (10-60) IU/L Alkaline Phosphatase (42-121) IU/L B-Natriuretic Peptide (5-100) pg/mL Total Protein (6.7-8.2) g/dL Albumin (3.2-5.5) g/dL Globulin (2.1-4.2) g/dL Albumin/Globulin Ratio (1.0-2.2) ABX Reporting Has patient been on IV antibiotics over the past 48 hours?: No Assessment/Plan - Problem List (1) Femoral neck fracture Impression: The patient was enjoying some yard work, and had an accidental fall, thereby fracturing his right hip, leaving a non-displaced femoral neck fracture. The patient is now post-op and Dr. Mac performed a repair. INR is now down to 1.4. Lovenox was held again today due to a post-op complication of bleeding from the surgical sight. Plan: PT/OT and likely SNF in the next few days after Coumadin is resumed. Qualifiers: Encounter type: initial encounter Fracture type: closed Laterality: right Qualified Code(s): S72.001A - Fracture of unspecified part of neck of right femur, initial encounter for closed fracture (2) HTN (hypertension) Impression: The patient's blood pressure prior to surgery was 108/70 and takes lisinopril and Coreg at home. During surgery the Coreg was on hold and he was given IV metoprolol that has now been discontinued. Coreg was resumed. The patient continues to be tachycardic. Plan: continue to monitor vital signs. Qualifiers: Hypertension type: essential hypertension Qualified Code(s): I10 - Essential (primary) hypertension (3) Afib Impression: The patient has a known history of this and is anticoagulated at home with Warfarin. Due to his hip fracture this is now on hold. EKG completed upon admission shows a-fib, which he has a history of. His home coreg has been resumed but still has ongoing tachycardia. Records from [facility] were obtained for the most recent echocardiogram. Plan: Continue Coreg for rate control. Qualifiers: Atrial fibrillation type: chronic Qualified Code(s): I48.2 - Chronic atrial fibrillation (4) Hyponatremia Impression: The patient was found to be mildly hyponatremic with a low sodium of 133 upon admission that is now slightly worsened at 128. IVFs have been stopped due to overall heart condition. No confusion is noted. Plan: Continue to monitor daily labs. (5) Leukocytosis Impression: The patient was noted to have an elevated WBC count that has now normalized. He has no obvious signs of infection other than this finding. Plan: Continue to monitor labs. (6) Valvular cardiomyopathy Impression: As per echo report from 08/25/17 at [facility] cardi[facility] the patient is noted to have moderate mitral regurg, which is causing this cardiomyopathy. The patient has a reduced EF of 50%. Plan: Continue to monitor especially in the post-op phase for fluid overload. Patient will be encouraged to follow up with cardiology for the possibility of valve repair in the near future. (7) Systolic left-sided congestive heart failure, NYHA class 1 Impression: A faxed Echo report that was completed on 08/25/17 at [facility] was obtained which shows a minimally decreased LV EF of 50%, and mitral regurg which is noted as moderate. He takes Coreg at home for rate control of his atrial fibrillation. Plan: Continue to monitor for post-op fluid overload, control heart rate using beta blockers and avoid ARBs in general. (8) Post-operative state Impression: The patient underwent a repair of his right femur with Dr. Mac late yesterday. He is post op day #1. He has had some drainage related to merely his anatomy and how his muscles lie. Dr. Mac reported to me in person and suggests serial labs to assess blood loss. Plan: Order CBC and await results.
[2017-09-04] MEDS ORDERED: SODIUM CHLORIDE 0.9% 500 ML IV ONE (00:14)
[2017-09-04] MEDS: SODIUM CHLORIDE FLUSH 0.9% 10 ML SYRINGE IVP SCH ×4 (00:39→23:58)
[2017-09-04 00:54] LABS: CALCIUM 7.7 mg/dL (8.5-10.3)
[2017-09-04 00:55] LABS: HGB - HEMOGLOBIN 9.4 g/dL (14.0-18.0)
[2017-09-04] MEDS: MORPHINE 2 MG/ML SYRINGE IVP PRN (03:20)
[2017-09-04 05:01] LABS: BASOPHILS % (AUTO) 0.4 %; EOSINOPHILS # (AUTO) 0.2 10^3/uL (0.0-0.7); EOSINOPHILS % (AUTO) 3.4 %; HGB - HEMOGLOBIN 9.2 g/dL (14.0-18.0); LYMPHOCYTES # (AUTO) 1.2 10^3/uL (1.5-3.5); MEAN CORPUSCULAR HEMOGLOBIN 32.6 pg (27.0-31.0); MEAN CORPUSCULAR HGB CONC 33.7 g/dL (32.0-36.0); MEAN CORPUSCULAR VOLUME 96.6 fL (80.0-94.0); MEAN PLATELET VOLUME 7.8 fL (7.4-11.4); MONOCYTES # (AUTO) 0.3 10^3/uL (0.0-1.0); MONOCYTES % (AUTO) 4.5 %; NEUTROPHILS # (AUTO) 4.9 10^3/uL (1.5-6.6); NEUTROPHILS % (AUTO) 73.7 %; PLT - PLATELET COUNT 112 10^3/uL (130-450); RED BLOOD COUNT 2.82 10^6/uL (4.70-6.10); RED CELL DISTRIBUTION WIDTH 13.2 % (12.0-15.0); WHITE BLOOD COUNT 6.6 x10^3/uL (4.8-10.8)
[2017-09-04 05:08] LABS: INR 1.3 (0.8-1.2); PT - PROTHROMBIN TIME 14.4 secs (9.9-12.6)
[2017-09-04 05:11] LABS: ALBUMIN 2.8 g/dL (3.2-5.5); ALBUMIN/GLOBULIN RATIO 1.2 (1.0-2.2); BILIRUBIN,TOTAL 1.7 mg/dL (0.2-1.0); CALCIUM 7.9 mg/dL (8.5-10.3); CREATININE 0.9 mg/dL (0.6-1.2); TOTAL PROTEIN 5.2 g/dL (6.7-8.2)
--- NOTE | 2017-09-04 09:20 | PROVIDER PROGRESS NOTE ---
Subjective - Prog Note Date Prog Note Date: 09/04/17 Prog Note Time: 09:20 - Subjective Pt reports feeling: Improved Subjective: Jovan complains of not having a BM since before my surgery. He denies chest pain, SOB, N/V or a new cough. He states that his PT is going ok, but with slow progress. Current Medications - Current Medications Current Medications: Active Medications Acetaminophen (Tylenol) 650 mg PO Q4HR PRN PRN Reason: Pain 1 to 4 Last Admin: 09/03/17 22:32 Dose: 650 mg Acetaminophen/Hydrocodone Bitart ([place] 5/325) 1 tab PO Q4HR PRN PRN Reason: PAIN Last Admin: 09/04/17 16:05 Dose: 1 tab Calcium Carbonate/Glycine (Tums) 500 mg PO BID [facility] Last Admin: 09/04/17 09:34 Dose: 500 mg Carvedilol (Coreg) 25 mg PO BID [facility] Cholecalciferol (Vitamin D3) 800 unit PO DAILY [facility] Last Admin: 09/04/17 09:35 Dose: 800 unit Docusate Sodium (Colace 250mg Capsule) 250 - 500 mg PO DAILY [facility] Last Admin: 09/04/17 09:34 Dose: 250 mg Enoxaparin Sodium (Lovenox) 40 mg SUBQ DAILY [facility] Last Admin: 09/04/17 10:56 Dose: Not Given Famotidine (Pepcid) 20 mg PO DAILY [facility] Last Admin: 09/04/17 09:35 Dose: 20 mg Loratadine (Claritin) 10 mg PO DAILY [facility] Last Admin: 09/04/17 09:35 Dose: 10 mg Metoprolol Tartrate (Lopressor Inj) 5 mg IVP Q6H PRN PRN Reason: SEE COMMENTS Morphine Sulfate (Morphine) 2 mg IVP Q2H PRN PRN Reason: Pain 8 to 10 Last Admin: 09/04/17 03:20 Dose: 2 mg Multivitamins (Theragran) 1 tab PO DAILY [facility] Last Admin: 09/04/17 09:35 Dose: 1 tab Ondansetron HCl (Zofran Inj) 4 mg IVP Q6HR PRN PRN Reason: Nausea / Vomiting Polyethylene Glycol (Miralax) 17 gm PO DAILY [facility] Last Admin: 09/04/17 09:35 Dose: 17 gm Senna (Senokot) 8.6 - 17.2 mg PO DAILY [facility] Last Admin: 09/04/17 09:34 Dose: 8.6 mg Senna (Senokot) 17 mg PO DAILY [facility] Last Admin: 09/04/17 17:58 Dose: Not Given Sodium Biphosphate/Sodium Phosphate (Fleets Saline Enema) 133 ml RC ONCE [facility] Stop: 09/04/17 20:00 Sodium Chloride (Normal Saline Flush 0.9%) 10 ml IVP PRN PRN PRN Reason: NEEDED PER PROVIDER ORDERS Last Admin: 09/03/17 04:25 Dose: 10 ml Sodium Chloride (Normal Saline Flush 0.9%) 10 ml IVP 0100,0900,1700 [facility] Last Admin: 09/04/17 16:05 Dose: 10 ml Sodium Chloride ([place]) 2 sprays GEENA BID [facility] Last Admin: 09/04/17 09:35 Dose: 2 sprays Throat Lozenges (Cepacol) 1 lozenge MM Q2HR PRN PRN Reason: Throat pain Warfarin Sodium (Coumadin) 2.5 mg PO QDWARFARIN [facility] Zolpidem Tartrate (Ambien) 5 mg PO QPM PRN PRN Reason: Insomnia Calcium Carbonate/Vitamin D3 [Calcium 600-Vit D3 800 Tab] 1 tab PO DAILY Carvedilol 12.5 mg PO BID 03/26/16 Meloxicam 15 mg PO DAILY 03/26/16 Warfarin [Coumadin] 5 mg PO DAILY 03/26/16 Lisinopril [Zestril] 5 mg PO DAILY 08/31/17 Loratadine 10 mg PO DAILY 08/31/17 Multivitamin [Theragran] 1 each PO DAILY 08/31/17 Objective - Vital Signs/Intake & Output Reviewed Vital Signs: Yes Vital Signs: Vital Signs x48h Temp Pulse Resp BP BP Pulse Ox 09/04/17 08:00 36.5 C 95 24 106/66 94 09/04/17 03:17 102 H 111/62 09/04/17 02:20 96/56 L 09/04/17 01:28 94 21 91/45 L 95 Intake & Output: Intake & Output 09/01/17 09/02/17 09/03/17 09/04/17 23:59 23:59 23:59 23:59 Intake Total 2250 2400 2060 850 Output Total 1100 1675 2970 1170 Balance 1150 725 -910 -320 - Objective General Appearance: positive: No acute distress, Alert Eyes Bilateral: positive: Normal inspection, PERRL Eyes: OU Conjunctivae pale, OU Scleral icterus ENT: positive: ENT inspection nml, Pharynx nml, Pharyngeal erythema, Dry mucous membranes Neck: positive: Nml inspection, Thyroid nml, No JVD, Trachea midline Respiratory: positive: Chest non-tender, No respiratory distress Cardiovascular: positive: No gallop, Irregularly irregular, Systolic murmur, Decreased pulse(s) Peripheral Pulses: 1+ Radial (R), 1+ Radial (L) Abdomen: positive: Non-tender, Nml bowel sounds, Other (firm, rounded) Back: positive: Nml inspection Skin: positive: No rash, Warm, Dry Extremities: positive: Non-tender, Full ROM, Pedal edema, Joint swelling Neurologic/Psychiatric: positive: Oriented x3, CN's nml (2-12), Motor nml, Sensation nml, Weakness, Depressed mood/affect Reflexes: Bicep (R): 2+, Bicep (L): 2+, Ankle (R): 2+, Ankle (L): 2+ - Lab Results Fish Bones: 09/04/17 04:50 09/04/17 04:50 Other Labs: Lab Results x24hrs 09/04/17 09/04/17 09/04/17 Range/Units 04:50 04:50 04:50 WBC (4.8-10.8) x10^3/uL RBC (4.70-6.10) 10^6/uL Hgb (14.0-18.0) g/dL Hct (42.0-52.0) % MCV (80.0-94.0) fL MCH (27.0-31.0) pg MCHC (32.0-36.0) g/dL RDW (12.0-15.0) % Plt Count (130-450) 10^3/uL MPV (7.4-11.4) fL Neut # (1.5-6.6) 10^3/uL Lymph # (1.5-3.5) 10^3/uL [place] # (0.0-1.0) 10^3/uL Eos # (0.0-0.7) 10^3/uL Baso # (0.0-0.1) 10^3/uL Absolute Nucleated RBC x10^3/uL Nucleated RBC % /100WBC PT 14.4 H (9.9-12.6) secs INR 1.3 H (0.8-1.2) Sodium 134 L (135-145) mmol/L Potassium 4.6 (3.5-5.0) mmol/L Chloride 101 (101-111) mmol/L Carbon Dioxide 28 (21-32) mmol/L Anion Gap 5.0 L (6-13) BUN 23 H (6-20) mg/dL Creatinine 0.9 (0.6-1.2) mg/dL Estimated GFR (MDRD) 81 L (>89) Glucose 112 H (70-100) mg/dL Calcium 7.9 L (8.5-10.3) mg/dL Total Bilirubin 1.7 H (0.2-1.0) mg/dL AST 23 (10-42) IU/L ALT 14 (10-60) IU/L Alkaline Phosphatase 36 L (42-121) IU/L Troponin I (<0.49) ng/mL B-Natriuretic Peptide 394 H (5-100) pg/mL Total Protein 5.2 L (6.7-8.2) g/dL Albumin 2.8 L (3.2-5.5) g/dL Globulin 2.4 (2.1-4.2) g/dL Albumin/Globulin Ratio 1.2 (1.0-2.2) 09/04/17 09/04/17 09/04/17 Range/Units 04:50 00:45 00:45 WBC 6.6 (4.8-10.8) x10^3/uL RBC 2.82 L (4.70-6.10) 10^6/uL Hgb 9.2 L (14.0-18.0) g/dL Hct 27.2 L (42.0-52.0) % MCV 96.6 H (80.0-94.0) fL MCH 32.6 H (27.0-31.0) pg MCHC 33.7 (32.0-36.0) g/dL RDW 13.2 (12.0-15.0) % Plt Count 112 L (130-450) 10^3/uL MPV 7.8 (7.4-11.4) fL Neut # 4.9 (1.5-6.6) 10^3/uL Lymph # 1.2 L (1.5-3.5) 10^3/uL [place] # 0.3 (0.0-1.0) 10^3/uL Eos # 0.2 (0.0-0.7) 10^3/uL Baso # 0.0 (0.0-0.1) 10^3/uL Absolute Nucleated RBC 0.00 x10^3/uL Nucleated RBC % 0.1 /100WBC PT (9.9-12.6) secs INR (0.8-1.2) Sodium 130 L (135-145) mmol/L Potassium 4.0 (3.5-5.0) mmol/L Chloride 98 L (101-111) mmol/L Carbon Dioxide 25 (21-32) mmol/L Anion Gap 7.0 (6-13) BUN 25 H (6-20) mg/dL Creatinine 1.0 (0.6-1.2) mg/dL Estimated GFR (MDRD) 71 L (>89) Glucose 118 H (70-100) mg/dL Calcium 7.7 L (8.5-10.3) mg/dL Total Bilirubin (0.2-1.0) mg/dL AST (10-42) IU/L ALT (10-60) IU/L Alkaline Phosphatase (42-121) IU/L Troponin I < 0.04 (<0.49) ng/mL B-Natriuretic Peptide (5-100) pg/mL Total Protein (6.7-8.2) g/dL Albumin (3.2-5.5) g/dL Globulin (2.1-4.2) g/dL Albumin/Globulin Ratio (1.0-2.2) 09/04/17 Range/Units 00:45 WBC (4.8-10.8) x10^3/uL RBC (4.70-6.10) 10^6/uL Hgb 9.4 L (14.0-18.0) g/dL Hct 26.9 L (42.0-52.0) % MCV (80.0-94.0) fL MCH (27.0-31.0) pg MCHC (32.0-36.0) g/dL RDW (12.0-15.0) % Plt Count (130-450) 10^3/uL MPV (7.4-11.4) fL Neut # (1.5-6.6) 10^3/uL Lymph # (1.5-3.5) 10^3/uL [place] # (0.0-1.0) 10^3/uL Eos # (0.0-0.7) 10^3/uL Baso # (0.0-0.1) 10^3/uL Absolute Nucleated RBC x10^3/uL Nucleated RBC % /100WBC PT (9.9-12.6) secs INR (0.8-1.2) Sodium (135-145) mmol/L Potassium (3.5-5.0) mmol/L Chloride (101-111) mmol/L Carbon Dioxide (21-32) mmol/L Anion Gap (6-13) BUN (6-20) mg/dL Creatinine (0.6-1.2) mg/dL Estimated GFR (MDRD) (>89) Glucose (70-100) mg/dL Calcium (8.5-10.3) mg/dL Total Bilirubin (0.2-1.0) mg/dL AST (10-42) IU/L ALT (10-60) IU/L Alkaline Phosphatase (42-121) IU/L Troponin I (<0.49) ng/mL B-Natriuretic Peptide (5-100) pg/mL Total Protein (6.7-8.2) g/dL Albumin (3.2-5.5) g/dL Globulin (2.1-4.2) g/dL Albumin/Globulin Ratio (1.0-2.2) - Diagnostic Imaging Diagnostic Imaging Results: positive: Final report reviewed ABX Reporting Has patient been on IV antibiotics over the past 48 hours?: No Assessment/Plan - Problem List (1) Femoral neck fracture Impression: The patient was enjoying some yard work, and had an accidental fall, thereby fracturing his right hip, leaving a non-displaced femoral neck fracture. The patient is now post-op and Dr. Mac performed a repair. INR is now down to 1.4. Dr. Harris has been rounding and suggests to start Coumadin, WITHOUT fully bridging. Lovenox was held due to a post-op complication of bleeding from the surgical sight, but now resumed at a low dose of just 40mg daily. He has been slow to progress, physically, which has now contributed to constipation. This will hold up his discharge. Plan: PT/OT, daily INRs, and likely SNF either Thursday or Thursday. Qualifiers: Encounter type: initial encounter Fracture type: closed Laterality: right Qualified Code(s): S72.001A - Fracture of unspecified part of neck of right femur, initial encounter for closed fracture (2) HTN (hypertension) Impression: The patient's blood pressure today has been a little low ~100/60's, but Coreg was doubled due to continued tachycardia. By slowing the heart rate, the blood pressure will also improve. He previously took lisinopril and Coreg at home. Plan: Continue to monitor vital signs and the new doubled dose of Coreg. Qualifiers: Hypertension type: essential hypertension Qualified Code(s): I10 - Essential (primary) hypertension (3) Afib Impression: The patient has a known history of this and is anticoagulated at home with Warfarin. EKG completed upon admission shows a-fib, which he has a history of and upon exam, he continues to be irregular. His home coreg has been resumed but still has ongoing tachycardia, so this dose was doubled today. Records from [facility] were obtained for the most recent echocardiogram. His overall heart function is poor, and if he were younger and agreeable, he would likely be getting a mitral valve replacement. Plan: Continue Coreg for rate control. Qualifiers: Atrial fibrillation type: chronic Qualified Code(s): I48.2 - Chronic atrial fibrillation (4) Hyponatremia Impression: The patient was found to be mildly hyponatremic with a low sodium of 133 upon admission that is now almost normal at 134 today. IVFs have been stopped due to overall heart condition. No confusion is noted. Plan: Continue to monitor daily labs. (5) Leukocytosis Impression: The patient was noted to have an elevated WBC count that has now normalized. Today WBCs are 6.6. He has no obvious signs of infection other than this finding. Plan: Continue to monitor labs (6) Valvular cardiomyopathy Impression: As per echo report from 08/25/17 at [facility] the patient is noted to have moderate mitral regurg, which is causing this cardiomyopathy. The patient has a reduced EF of 50%. Plan: Continue to monitor especially in the post-op phase for fluid overload. Patient will be encouraged to follow up with cardiology for the possibility of valve repair in the near future. (7) Systolic left-sided congestive heart failure, NYHA class 1 Impression: A faxed Echo report that was completed on 08/25/17 at [facility] was obtained which shows a minimally decreased LV EF of 50%, and mitral regurg which is noted as moderate. He takes Coreg at home for rate control of his atrial fibrillation. Today, Coreg dose was doubled as his HRs are still too high 90-110's. Plan: Continue to monitor for post-op fluid overload, control heart rate using beta blockers and avoid ARBs in general. (8) Post-operative state Impression: The patient underwent a repair of his right femur with Dr. Mac He has had some drainage related to merely his anatomy and how his muscles lie. Dr. Mac reported to me in person and suggests serial labs to assess blood loss. This is all resolved and the patient continues with daily PT, but is found to be constipated. Plan: D/C to [facility] after bowel issues resolve. (9) Constipation Impression: Patient had a right hip repair and has not moved his bowels. Today, he has been prescribed a saline enema, and daily senna. He is not on diuretics, and this issue was likely due to prolonged immobility. He will not be discharged to SNF until the constipation is resolved. Plan: Continue to monitor.
[2017-09-04] MEDS: SENNA 8.6 MG TABLET PO SCH ×2 (09:34→17:58)
[2017-09-04] MEDS: DOCUSATE SODIUM 250 MG CAPSULE PO SCH (09:34)
[2017-09-04] MEDS: CARVEDILOL 12.5 MG TABLET PO SCH ×2 (09:34→20:18)
[2017-09-04] MEDS: CALCIUM CARBONATE CHEW 500 MG TABLET PO SCH ×2 (09:34→20:18)
[2017-09-04] MEDS: SODIUM CHLORIDE 0.65% NASAL SPRAY NAS SCH ×2 (09:35→20:23)
[2017-09-04] MEDS: FAMOTIDINE 20 MG TABLET PO SCH (09:35)
[2017-09-04] MEDS: POLYETHYLENE GLYCOL 3350 17 GM PACKET PO SCH (09:35)
[2017-09-04] MEDS: MULTIVITAMIN TABLET PO SCH (09:35)
[2017-09-04] MEDS: CHOLECALCIFEROL 400 UNIT TABLET PO SCH (09:35)
[2017-09-04] MEDS: LORATADINE 10 MG TABLET PO SCH (09:35)
--- NOTE | 2017-09-04 09:44 | PROVIDER PROGRESS NOTE ---
Subjective - General Admit Date: 08/31/17 Procedure Date: 09/01/17 Post Op Days: 3 Procedure Performed: Right hip hemiarthroplasty - Review of Systems Wound/Incisions: positive: Healing well, Drainage Musculoskeletal: positive: Joint pain Skin: positive: No symptoms Psychiatric: positive: No symptoms Objective - Patient Data Reviewed Vital Signs: Yes Vital Signs: Vital Signs x48h Temp Pulse Resp BP BP Pulse Ox 09/04/17 08:00 36.5 C 95 24 106/66 94 09/04/17 03:17 102 H 111/62 09/04/17 02:20 96/56 L Intake & Output: Intake and Output Totals x24h 09/02/17 09/03/17 09/04/17 23:59 23:59 23:59 Intake Total 2400 2060 850 Output Total 1675 2970 1170 Balance 545 -142 -188 - Lab Results Lab Results: 09/04/17 04:50 09/04/17 04:50 Other Lab Results: Lab Results x24hrs 09/04/17 09/04/17 09/04/17 Range/Units 04:50 04:50 04:50 WBC (4.8-10.8) x10^3/uL RBC (4.70-6.10) 10^6/uL Hgb (14.0-18.0) g/dL Hct (42.0-52.0) % MCV (80.0-94.0) fL MCH (27.0-31.0) pg MCHC (32.0-36.0) g/dL RDW (12.0-15.0) % Plt Count (130-450) 10^3/uL MPV (7.4-11.4) fL Neut # (1.5-6.6) 10^3/uL Lymph # (1.5-3.5) 10^3/uL [place] # (0.0-1.0) 10^3/uL Eos # (0.0-0.7) 10^3/uL Baso # (0.0-0.1) 10^3/uL Absolute Nucleated RBC x10^3/uL Nucleated RBC % /100WBC PT 14.4 H (9.9-12.6) secs INR 1.3 H (0.8-1.2) Sodium 134 L (135-145) mmol/L Potassium 4.6 (3.5-5.0) mmol/L Chloride 101 (101-111) mmol/L Carbon Dioxide 28 (21-32) mmol/L Anion Gap 5.0 L (6-13) BUN 23 H (6-20) mg/dL Creatinine 0.9 (0.6-1.2) mg/dL Estimated GFR (MDRD) 81 L (>89) Glucose 112 H (70-100) mg/dL Calcium 7.9 L (8.5-10.3) mg/dL Total Bilirubin 1.7 H (0.2-1.0) mg/dL AST 23 (10-42) IU/L ALT 14 (10-60) IU/L Alkaline Phosphatase 36 L (42-121) IU/L Troponin I (<0.49) ng/mL B-Natriuretic Peptide 394 H (5-100) pg/mL Total Protein 5.2 L (6.7-8.2) g/dL Albumin 2.8 L (3.2-5.5) g/dL Globulin 2.4 (2.1-4.2) g/dL Albumin/Globulin Ratio 1.2 (1.0-2.2) 09/04/17 09/04/17 09/04/17 Range/Units 04:50 00:45 00:45 WBC 6.6 (4.8-10.8) x10^3/uL RBC 2.82 L (4.70-6.10) 10^6/uL Hgb 9.2 L (14.0-18.0) g/dL Hct 27.2 L (42.0-52.0) % MCV 96.6 H (80.0-94.0) fL MCH 32.6 H (27.0-31.0) pg MCHC 33.7 (32.0-36.0) g/dL RDW 13.2 (12.0-15.0) % Plt Count 112 L (130-450) 10^3/uL MPV 7.8 (7.4-11.4) fL Neut # 4.9 (1.5-6.6) 10^3/uL Lymph # 1.2 L (1.5-3.5) 10^3/uL [place] # 0.3 (0.0-1.0) 10^3/uL Eos # 0.2 (0.0-0.7) 10^3/uL Baso # 0.0 (0.0-0.1) 10^3/uL Absolute Nucleated RBC 0.00 x10^3/uL Nucleated RBC % 0.1 /100WBC PT (9.9-12.6) secs INR (0.8-1.2) Sodium 130 L (135-145) mmol/L Potassium 4.0 (3.5-5.0) mmol/L Chloride 98 L (101-111) mmol/L Carbon Dioxide 25 (21-32) mmol/L Anion Gap 7.0 (6-13) BUN 25 H (6-20) mg/dL Creatinine 1.0 (0.6-1.2) mg/dL Estimated GFR (MDRD) 71 L (>89) Glucose 118 H (70-100) mg/dL Calcium 7.7 L (8.5-10.3) mg/dL Total Bilirubin (0.2-1.0) mg/dL AST (10-42) IU/L ALT (10-60) IU/L Alkaline Phosphatase (42-121) IU/L Troponin I < 0.04 (<0.49) ng/mL B-Natriuretic Peptide (5-100) pg/mL Total Protein (6.7-8.2) g/dL Albumin (3.2-5.5) g/dL Globulin (2.1-4.2) g/dL Albumin/Globulin Ratio (1.0-2.2) 09/04/17 Range/Units 00:45 WBC (4.8-10.8) x10^3/uL RBC (4.70-6.10) 10^6/uL Hgb 9.4 L (14.0-18.0) g/dL Hct 26.9 L (42.0-52.0) % MCV (80.0-94.0) fL MCH (27.0-31.0) pg MCHC (32.0-36.0) g/dL RDW (12.0-15.0) % Plt Count (130-450) 10^3/uL MPV (7.4-11.4) fL Neut # (1.5-6.6) 10^3/uL Lymph # (1.5-3.5) 10^3/uL [place] # (0.0-1.0) 10^3/uL Eos # (0.0-0.7) 10^3/uL Baso # (0.0-0.1) 10^3/uL Absolute Nucleated RBC x10^3/uL Nucleated RBC % /100WBC PT (9.9-12.6) secs INR (0.8-1.2) Sodium (135-145) mmol/L Potassium (3.5-5.0) mmol/L Chloride (101-111) mmol/L Carbon Dioxide (21-32) mmol/L Anion Gap (6-13) BUN (6-20) mg/dL Creatinine (0.6-1.2) mg/dL Estimated GFR (MDRD) (>89) Glucose (70-100) mg/dL Calcium (8.5-10.3) mg/dL Total Bilirubin (0.2-1.0) mg/dL AST (10-42) IU/L ALT (10-60) IU/L Alkaline Phosphatase (42-121) IU/L Troponin I (<0.49) ng/mL B-Natriuretic Peptide (5-100) pg/mL Total Protein (6.7-8.2) g/dL Albumin (3.2-5.5) g/dL Globulin (2.1-4.2) g/dL Albumin/Globulin Ratio (1.0-2.2) - Current Medications Current Medications: Current Medications Generic Name Dose Route Start Last Admin Trade Name Con[place]ita PRN Reason Stop Dose Admin Acetaminophen 650 mg 08/31/17 17:36 09/03/17 22:32 Tylenol PO 650 mg Q4HR PRN Administration Pain 1 to 4 Calcium Carbonate/Glycine 500 mg 08/31/17 21:00 09/04/17 09:34 Tums PO 500 mg BID LARRY Administration Carvedilol 12.5 mg 09/02/17 21:00 09/04/17 09:34 Coreg PO 12.5 mg BID LARRY Administration Cholecalciferol 800 unit 09/01/17 09:00 09/04/17 09:35 Vitamin D3 PO 800 unit DAILY [facility]ARRY Administration Docusate Sodium 250 - 500 mg 09/04/17 09:00 09/04/17 09:34 Colace 250mg Capsule PO 250 mg DAILY LARRY Administration Enoxaparin Sodium 40 mg 09/01/17 09:00 09/03/17 13:13 Lovenox SUBQ Not Given DAILY LARRY Famotidine 20 mg 09/01/17 09:00 09/04/17 09:35 Pepcid PO 20 mg DAILY [facility]ARRY Administration Loratadine 10 mg 09/01/17 09:00 09/04/17 09:35 Claritin PO 10 mg DAILY [facility]ARRY Administration Morphine Sulfate 2 mg 08/31/17 17:36 09/04/17 03:20 Morphine IVP 2 mg Q2H PRN Administration Pain 8 to 10 Multivitamins 1 tab 09/01/17 09:00 09/04/17 09:35 Theragran PO 1 tab DAILY LARRY Administration Polyethylene Glycol 17 gm 09/01/17 09:00 09/04/17 09:35 Miralax PO 17 gm DAILY [facility]ARRY Administration Senna 8.6 - 17.2 mg 09/04/17 09:00 09/04/17 09:34 Senokot PO 8.6 mg DAILY LARRY Administration Sodium Chloride 10 ml 08/31/17 17:36 09/03/17 04:25 Normal Saline Flush 0.9% IVP 10 ml PRN PRN Administration NEEDED PER PROVIDER ORDERS Sodium Chloride 10 ml 09/01/17 01:00 09/04/17 09:35 Normal Saline Flush 0.9% IVP 10 ml 0100,0900,1700 LARRY Administration Sodium Chloride 2 sprays 09/02/17 14:00 09/04/17 09:35 [place] GEENA 2 sprays BID LARRY Administration - Physical Exam Wound/Incisions: positive: Healing well General Appearance: positive: No acute distress Skin: positive: No rash, Warm, Dry Extremities: positive: Joint swelling Neurologic/Psychiatric: positive: Motor nml, Sensation nml, Mood/affect nml Impression/Plan - Problem List Problem List: Pt is showing routine recovery. Rec: PT, continued mobilization. Dressing to remain in place next 7-10days until clinic f/u OK to resume coumadin and "bridge therapy".
[2017-09-04] MEDS ORDERED: CARVEDILOL 12.5 MG TABLET PO ONE (10:42)
[2017-09-04] MEDS: ENOXAPARIN 40 MG/0.4 ML SYRINGE SUBQ SCH (10:56)
[2017-09-04] MEDS: HYDROcod/ACETAM 5/325 MG TABLET PO PRN ×3 (11:04→23:53)
[2017-09-04] MEDS ORDERED: MAGNESIUM HYDROXIDE 2,400 MG/30 ML UDC PO ONE (16:31)
[2017-09-04] MEDS ORDERED: SALINE ENEMA 133 ML BOTTLE RC SCH (18:00)
[2017-09-04] MEDS: WARFARIN 2.5 MG TABLET PO SCH (20:19)
[2017-09-05 06:40] LABS: BASOPHILS % (AUTO) 0.4 %; EOSINOPHILS # (AUTO) 0.3 10^3/uL (0.0-0.7); EOSINOPHILS % (AUTO) 4.7 %; HGB - HEMOGLOBIN 9.3 g/dL (14.0-18.0); LYMPHOCYTES # (AUTO) 1.6 10^3/uL (1.5-3.5); LYMPHOCYTES % (AUTO) 22.2 %; MEAN CORPUSCULAR HEMOGLOBIN 33.1 pg (27.0-31.0); MEAN CORPUSCULAR HGB CONC 34.1 g/dL (32.0-36.0); MEAN CORPUSCULAR VOLUME 97.1 fL (80.0-94.0); MEAN PLATELET VOLUME 7.9 fL (7.4-11.4); MONOCYTES # (AUTO) 0.3 10^3/uL (0.0-1.0); MONOCYTES % (AUTO) 4.9 %; NEUTROPHILS # (AUTO) 4.8 10^3/uL (1.5-6.6); NEUTROPHILS % (AUTO) 67.8 %; PLT - PLATELET COUNT 152 10^3/uL (130-450); RED BLOOD COUNT 2.81 10^6/uL (4.70-6.10); RED CELL DISTRIBUTION WIDTH 12.9 % (12.0-15.0); WHITE BLOOD COUNT 7.1 x10^3/uL (4.8-10.8)
[2017-09-05 06:50] LABS: ALBUMIN/GLOBULIN RATIO 1.1 (1.0-2.2); BILIRUBIN,TOTAL 1.3 mg/dL (0.2-1.0); CALCIUM 7.8 mg/dL (8.5-10.3); CREATININE 0.9 mg/dL (0.6-1.2); TOTAL PROTEIN 5.7 g/dL (6.7-8.2)
[2017-09-05] MEDS ORDERED: SODIUM CHLORIDE 1 GM TABLET PO SCH (08:00)
[2017-09-05] MEDS ORDERED: CALCIUM CITRATE 250 MG TABLET PO SCH (08:00)
[2017-09-05] MEDS: DOCUSATE SODIUM 250 MG CAPSULE PO SCH (08:47)
[2017-09-05] MEDS: MULTIVITAMIN TABLET PO SCH (08:47)
[2017-09-05] MEDS: CALCIUM CARBONATE CHEW 500 MG TABLET PO SCH (08:47)
[2017-09-05] MEDS: CHOLECALCIFEROL 400 UNIT TABLET PO SCH (08:48)
[2017-09-05] MEDS: CARVEDILOL 12.5 MG TABLET PO SCH (08:48)
[2017-09-05] MEDS: LORATADINE 10 MG TABLET PO SCH (08:48)
[2017-09-05] MEDS: SENNA 8.6 MG TABLET PO SCH ×2 (08:49→08:53)
[2017-09-05] MEDS: HYDROcod/ACETAM 5/325 MG TABLET PO PRN ×2 (08:49→13:22)
[2017-09-05] MEDS: POLYETHYLENE GLYCOL 3350 17 GM PACKET PO SCH (08:53)
[2017-09-05] MEDS: ENOXAPARIN 40 MG/0.4 ML SYRINGE SUBQ SCH (08:53)
[2017-09-05] MEDS: SODIUM CHLORIDE FLUSH 0.9% 10 ML SYRINGE IVP SCH (08:54)
[2017-09-05] MEDS: SODIUM CHLORIDE 0.65% NASAL SPRAY NAS SCH (08:54)
[2017-09-05] MEDS: FAMOTIDINE 20 MG TABLET PO SCH (09:03)
--- NOTE | 2017-09-05 12:45 | Discharge Plan ---
"Discharge Plan for SNF / ANAT - DC Plan and Transition Orders Disposition: 03 SNF DC/Xfer Condition: Poor SNF Transition Orders: Admit to: [[facility]] under the care of [Doctor Hakeem Vargas] Discharge Diagnosis: [right femoral neck fracture, HTN, afib with coumadin, valvular cardiomyopathy, hyponatremia, constipation] Medicare Certification: I certify that [facility] care is medically necessary on a continuing basis for any of the conditions for which she/he is receiving care during hospitalization. Notify PCP of admission and forward orders to primary provider for signature. Weight on admission and [95kg]. Call PCP immediately if weight increases by [4 ] pounds or if patient develops dyspnea, chest pain/tightness or edema. House Bowel Program: [Yes] If no BM after 2 days, nurse may give M.O.M. 30ml PO PRN and /or ducolax Supp 1 OK and /or KAZ 250mg P.O., and/or senna 1-2 tabs PO. On day 3 nurse may give repeat above order until residents constipation is resolved. Immunizations: Annual Influenza Vaccine: [Yes]. (between Dec 12 and July 11.) Unless allergy or already given Two-Step PPD: [Yes] per [facility] [id number] or appropriate documentation of approved exceptions Treatments & Other Orders: [May follow up Hakeem Garcia after arrival to the facility, follow up orthopedics office Dr. Mac in 2 weeks, continue PT/OT evaluation and treatment] Oxygen Orders: [PRN] Lab Tests or X-Rays Orders: [may follow up PCP, have PT/INR in 5 days] Orthopedic Orders: [may follow up orthopedics office Dr. Mac in 2 weeks]. Medications: PLEASE REFER TO THE DISCHARGE MEDICATION LIST. Insulin Orders? [No] Diagnosis: Diabetes Initiate hypo and hyperglycemia protocols for BG <70 and BG >375. May check BG prn for signs/symptoms of dysglycemia. Frequency of BG checks: [AC/Meal/HS] Basal Insulin: [] Lantus 100 units / ml inject subq as follows: [] [] Other: [] Correction Insulin: - Select the type of insulin below [Choose: Novolog/Humalog]100 units /ml insulin inject subq per orders indicate below [] LOW DOSE [] MODERATE DOSE [] MODERATE/HIGH DOSE [] HIGH DOSE GB UNITS GB UNITS GB UNITS GB UNITS 61-140 0 UNITS 61-140 0 UNITS 61-140 0 UNITS 61-140 0 UNITS 141-175 1 UNITS 141-175 1 UNITS 141-175 2 UNITS 141-175 3 UNITS 176-225 2 UNITS 176-225 3 UNITS 176-225 4 UNITS 176-225 5 UNITS 226-275 3 UNITS 226-275 5 UNITS 226-275 6 UNITS 226-275 7 UNITS 276-325 4 UNITS 276-325 7 UNITS 276-325 8 UNITS 276-325 9 UNITS 326-375 5 UNITS 326-375 9 UNITS 326-375 10 UNITS 326-375 11 UNITS >375 CONTACT MD >375 CONTACT MD >375 CONTACT MD >375 CONTACT MD Custom Dosing: [Choose: None/Novolog/Humalog] 100 units/ml Insulin inject subq as follows: GB Units 61-140 [] Units 141-175 [] Units 176-225 [] Units 226-275 [] Units 276-325 []Units 326-375 [] Units >375 Contact MD Allergies and Adverse Reactions: Allergies Allergy/AdvReac Type Severity Reaction Status Date / Time No Known Drug Allergies Allergy Verified 03/26/16 06:25 - Medications New Prescriptions: HYDROcod/ACETAM 5/325 [[place] 5/325] 1 tab PO Q4HR PRN #20 tablet PRN Reason: Pain Carvedilol [Coreg] 25 mg PO BID #20 tablet Docusate Sodium 250Mg Capsule [Colace 250Mg Capsule] 250 - 500 mg PO DAILY #8 capsule - Diet Type: Geriatric Texture: Regular Liquids: Thin May have monthly special meal: Yes - Therapies | Activity Therapy: Evaluation | Treat if indicated: PT, OT Rehabilitation Potential: Maximize functional status Activity: Activity as Tolerated Additional Instructions: May follow up Hakeem Garcia after arrival to the facility, follow up orthopedics office Dr. Mac in 2 weeks, continue PT/OT evaluation and treatment"
[2017-09-05] MEDS: WARFARIN 2.5 MG TABLET PO SCH (13:23)
--- NOTE | 2017-09-05 14:00 | DISCHARGE SUMMARY ---
"Discharge Summary Discharge Date: 09/05/17 Discharging Provider: DOYLE Primary Care Provider: Dr. Hakeem Vargas Condition at Discharge: Poor Discharge Disposition: SNF DC/Xfer Discharge Facility Name: [facility] - DIAGNOSES Admission Diagnoses: (1) Femoral neck fracture (2) HTN (hypertension) (3) Afib with RVR (4) Lymphocytosis (5) Hyponatremia Discharge Diagnoses with Status of Each Condition: (1) Femoral neck fracture pt's pain is controlled, walk with PT/OT. Orthopedics release pt to be d/c to SNF for continue training (2) HTN (hypertension) pt's BP was arrange between 90-120 in most case. Denies dizziness. continue to be managed by PCP (3) Afib with RVR controlled HR at around 85, resolved. continue to be managed by PCP resume Coumadin.continue to be managed by PCP (4) Hyponatremia Na 132, slight lower, continue to be managed by PCP (5) Leukocytosis resolved (6) Valvular cardiomyopathy stable, continue to be managed by PCP (7) Systolic left-sided congestive heart failure, NYHA class 1 stable, continue to be managed by PCP (8) Post-operative state pt developed bleeding complication at operation site. bleeding was stopped. orthopedics surgeon changed dress, no more bleeding. follow up orthopedics in two weeks (9) Constipation resolved. continue to be managed by PCP - HPI History of Present Illness: Mr. Castro is a 81-yrs-old male with a PMH significant for HTN, Afib with Coumadin, osteoarthritis, who present ER for complaint of right hip pain. Pt report when he tripped, he was pulling out brambles on a hill. His right elbow and right hip hit the ground. The right elbow has skin tears but no other injury , and with full ROM. But his right hip immediately had sharp pain and he can not move his hip. Xray of hip reveals nondisplaced right femoral neck fracture. His WBC is mild to moderately elevated, CXR is unremarkable, UA is pending. pt denies other injury. Pt denies fever, chill, cough, shortness of breath, chest pain, headache, vision changing. pt is admitted for hip repair, and orthopedics surgeon is consulted. - CONSULTS | PROCEDURES Consultations: Dr. Mac Procedures: Right hip hemiarthroplasty - HOSPITAL COURSE Hospital Course: pt was admitted for right hip fracture. pt had Right hip hemiarthroplasty by . After procedure, pt developed some complication including Anemia of acute blood loss, Hematoma drainage. after pt was treated, pt's anemia is stable , hematoma drainage was resolved. Pt's pain was controlled. pt walked with PT/ OT. PT/OT recommend pt to be d/c to SNF. Orthopedics [facility] - ALLERGIES Allergies/Adverse Reactions: Allergies Allergy/AdvReac Type Severity Reaction Status Date / Time No Known Drug Allergies Allergy Verified 03/26/16 06:25 - MEDICATIONS Home Medications: Ambulatory Orders Medication Instructions Recorded Confirmed Albuterol Sulf [Ventolin Hfa 1 - 2 puffs INH Q4HR PRN #1 inhaler 03/26/16 Inhaler] Calcium Carbonate/Vitamin D3 1 tab PO DAILY 03/26/16 08/31/17 [Calcium 600-Vit D3 800 Tab] Meloxicam 15 mg PO DAILY 03/26/16 08/31/17 Warfarin [Coumadin] 5 mg PO DAILY 03/26/16 08/31/17 Lisinopril [Zestril] 5 mg PO DAILY 08/31/17 08/31/17 Loratadine 10 mg PO DAILY 08/31/17 08/31/17 Multivitamin [Theragran] 1 each PO DAILY 08/31/17 08/31/17 Carvedilol [Coreg] 25 mg PO BID #20 tablet 09/05/17 Docusate Sodium 250Mg Capsule 250 mg PO DAILY PRN #7 capsule 09/05/17 [Colace 250Mg Capsule] HYDROcod/ACETAM 5/325 [[place] 5/325] 1 tab PO Q4HR PRN #20 tablet 09/05/17 - PHYSICAL EXAM AT DISCHARGE General Appearance: positive: No acute distress, Alert. negative: Lethargic Eyes Bilateral: positive: Normal inspection, PERRL, No lid inflammation, Conjunctivae nml ENT: positive: ENT inspection nml, Pharynx nml. negative: Purulent nasal drainage, Pharyngeal erythema, Oral lesions Neck: positive: Nml inspection, Thyroid nml, No JVD, Trachea midline. negative : Thyromegaly, Lymphadenopathy (R), Lymphadenopathy (L), Carotid bruit, Swelling /bruising, Tracheal deviation Respiratory: positive: Chest non-tender, No respiratory distress, Breath sounds nml. negative: Wheezes, Rales, Rhonchi Cardiovascular: positive: Regular rate & rhythm, No murmur, No gallop. negative : Irregularly irregular, Extrasystoles, Tachycardia, Bradycardia, JVD present, Systolic murmur, Diastolic murmur Peripheral Pulses: positive: 2+ Abdomen: positive: Non-tender, No organomegaly, Nml bowel sounds, No distention. negative: Tenderness, Guarding, Rebound Back: positive: Nml inspection Skin: positive: Color nml, No rash, Warm, Dry. negative: Cyanosis, Diaphoresis , Pallor Extremities: positive: Non-tender, Full ROM, Nml appearance. negative: Calf tenderness, Joint swelling, Genaro's sign/cords Neurologic/Psychiatric: positive: Oriented x3, Motor nml, Sensation nml, Mood/ affect nml. negative: Weakness, Sensory loss, Facial droop, Slurred/abnml speech, Depressed mood/affect - LABS Result Diagrams: 09/05/17 06:20 09/05/17 12:57 - FOLLOW UP Follow Up: May follow up Hakeem Garcia after arrival to the facility, follow up orthopedics office Dr. Mac in 2 weeks, continue PT/OT evaluation and treatment - TIME SPENT Time Spent in Discharge (Minutes): 50"
[2017-09-05 14:25] VITALS: BP 95/55
== END 2017-09-05 15:40 | DRG 470 ==
LOC: ED 15:10 → MS2 17:36
PROVIDERS: ADMIT Nurse Practitioner Gerontology; ATTEND Nurse Practitioner Gerontology
PROC: 0SRR01A Replacement of Right Hip Joint, Femoral Surface with Metal Synthetic Substitute, Uncemented, Open Approach (ICD-10-PCS; principal; 2017-09-01 16:30)
DX: S72.001A Fracture of unspecified part of neck of right femur, initial encounter for closed fracture (principal); I48.91 Unspecified atrial fibrillation; E87.1 Hypo-osmolality and hyponatremia; I50.20 Unspecified systolic (congestive) heart failure; D62 Acute posthemorrhagic anemia; M96.840 Postprocedural hematoma of a musculoskeletal structure following a musculoskeletal system procedure; S50.311A Abrasion of right elbow, initial encounter; I11.0 Hypertensive heart disease with heart failure; I48.2 Chronic atrial fibrillation; I34.0 Nonrheumatic mitral (valve) insufficiency; D72.829 Elevated white blood cell count, unspecified; M19.90 Unspecified osteoarthritis, unspecified site; K59.00 Constipation, unspecified; R91.1 Solitary pulmonary nodule; W01.0XXA Fall on same level from slipping, tripping and stumbling without subsequent striking against object, initial encounter; Y93.H2 Activity, gardening and landscaping; Y83.8 Other surgical procedures as the cause of abnormal reaction of the patient, or of later complication, without mention of misadventure at the time of the procedure; Y92.234 Operating room of hospital as the place of occurrence of the external cause; Z66 Do not resuscitate; Z79.01 Long term (current) use of anticoagulants; Z79.51 Long term (current) use of inhaled steroids; Z79.899 Other long term (current) drug therapy
CPT/HCPCS: 36415; 71045; 80048; 80053; 81001; 83690; 83735; 83880; 84295; 84484; 85014; 85018; 85025; 85027; 85610; 86850; 86900; 86901; 86920; 87086; 93005; 96374; 99283; 99284

== ENCOUNTER 2017-09-21 10:10 | Outpatient (CLI) | payer MEDICARE, BC | END 2017-09-21 10:11 | disposition home or self-care (01) | LOC: LAB 10:10 | PROVIDERS: ATTEND Internal Medicine | DX: I48.91 Unspecified atrial fibrillation (principal); Z79.01 Long term (current) use of anticoagulants | CPT/HCPCS: 85610 ==

== ENCOUNTER 2017-10-05 11:13 | Outpatient (CLI) | payer MEDICARE, BC | END 2017-10-05 11:14 | disposition home or self-care (01) | LOC: LAB 11:13 | PROVIDERS: ATTEND Internal Medicine | DX: I48.91 Unspecified atrial fibrillation (principal); Z79.01 Long term (current) use of anticoagulants | CPT/HCPCS: 85610 ==

== ENCOUNTER 2017-10-19 10:50 | Outpatient (CLI) | payer MEDICARE, BC | END 2017-10-19 10:51 | disposition home or self-care (01) | LOC: LAB 10:50 | PROVIDERS: ATTEND Internal Medicine | DX: I48.91 Unspecified atrial fibrillation (principal); Z79.01 Long term (current) use of anticoagulants | CPT/HCPCS: 85610 ==

== ENCOUNTER 2017-11-16 09:18 | Outpatient (CLI) | payer MEDICARE, BC | END 2017-11-16 09:19 | disposition home or self-care (01) | LOC: LAB 09:18 | PROVIDERS: ATTEND Internal Medicine | DX: I48.91 Unspecified atrial fibrillation (principal); Z79.01 Long term (current) use of anticoagulants | CPT/HCPCS: 85610 ==

== ENCOUNTER 2017-11-30 10:16 | Outpatient (CLI) | payer MEDICARE, BC | END 2017-11-30 10:17 | disposition home or self-care (01) | LOC: LAB 10:16 | PROVIDERS: ATTEND Internal Medicine | DX: I48.91 Unspecified atrial fibrillation (principal); Z79.01 Long term (current) use of anticoagulants | CPT/HCPCS: 85610 ==

== ENCOUNTER 2017-12-07 10:15 | Outpatient (CLI) | payer MEDICARE, BC | END 2017-12-07 10:16 | disposition home or self-care (01) | LOC: LAB 10:15 | PROVIDERS: ATTEND Internal Medicine | DX: I48.91 Unspecified atrial fibrillation (principal); Z79.01 Long term (current) use of anticoagulants | CPT/HCPCS: 85610 ==

== ENCOUNTER 2017-12-15 10:21 | Outpatient (CLI) | payer MEDICARE, BC | END 2017-12-15 10:22 | disposition home or self-care (01) | LOC: LAB 10:21 | PROVIDERS: ATTEND Internal Medicine | DX: I48.91 Unspecified atrial fibrillation (principal); Z79.01 Long term (current) use of anticoagulants | CPT/HCPCS: 85610 ==

== ENCOUNTER 2017-12-29 10:17 | Outpatient (CLI) | payer MEDICARE, BC | END 2017-12-29 10:18 | disposition home or self-care (01) | LOC: LAB 10:17 | PROVIDERS: ATTEND Internal Medicine | DX: I48.91 Unspecified atrial fibrillation (principal); Z79.01 Long term (current) use of anticoagulants | CPT/HCPCS: 85610 ==

== ENCOUNTER 2018-01-12 10:25 | Outpatient (CLI) | payer MEDICARE, BC | END 2018-01-12 10:26 | disposition home or self-care (01) | LOC: LAB 10:25 | PROVIDERS: ATTEND Internal Medicine | DX: I48.91 Unspecified atrial fibrillation (principal); Z79.01 Long term (current) use of anticoagulants | CPT/HCPCS: 85610 ==

== ENCOUNTER 2018-01-19 10:04 | Outpatient (CLI) | payer MEDICARE, BC | END 2018-01-19 10:05 | disposition home or self-care (01) | LOC: LAB 10:04 | PROVIDERS: ATTEND Internal Medicine | DX: I48.91 Unspecified atrial fibrillation (principal); Z79.01 Long term (current) use of anticoagulants | CPT/HCPCS: 85610 ==

== ENCOUNTER 2018-02-02 10:32 | Outpatient (CLI) | payer MEDICARE, BC | END 2018-02-02 10:33 | disposition home or self-care (01) | LOC: LAB 10:32 | PROVIDERS: ATTEND Internal Medicine | DX: I48.91 Unspecified atrial fibrillation (principal); Z79.01 Long term (current) use of anticoagulants | CPT/HCPCS: 85610 ==

== ENCOUNTER 2018-03-02 10:07 | Outpatient (CLI) | payer MEDICARE, BC | END 2018-03-02 10:08 | disposition home or self-care (01) | LOC: LAB 10:07 | PROVIDERS: ATTEND Internal Medicine | DX: I48.91 Unspecified atrial fibrillation (principal); Z79.01 Long term (current) use of anticoagulants | CPT/HCPCS: 85610 ==

== ENCOUNTER 2018-03-16 10:42 | Outpatient (CLI) | payer MEDICARE, BC | END 2018-03-16 10:43 | disposition home or self-care (01) | LOC: LAB 10:42 | PROVIDERS: ATTEND Internal Medicine | DX: I48.91 Unspecified atrial fibrillation (principal); Z79.01 Long term (current) use of anticoagulants | CPT/HCPCS: 85610 ==

== ENCOUNTER 2018-04-14 10:22 | Outpatient (CLI) | payer MEDICARE, BC | END 2018-04-14 10:23 | disposition home or self-care (01) | LOC: LAB 10:22 | PROVIDERS: ATTEND Internal Medicine | DX: I48.91 Unspecified atrial fibrillation (principal) | CPT/HCPCS: 85610 ==

== ENCOUNTER 2018-05-10 10:32 | Outpatient (CLI) | payer MEDICARE, BC | END 2018-05-10 10:33 | disposition home or self-care (01) | LOC: LAB 10:32 | PROVIDERS: ATTEND Internal Medicine | DX: Z53.9 Procedure and treatment not carried out, unspecified reason (principal) ==

== ENCOUNTER 2018-05-12 08:21 | Outpatient (CLI) | payer MEDICARE, BC ==
[2018-05-12 08:49] LABS: BASOPHILS % (AUTO) 0.4 %; EOSINOPHILS # (AUTO) 0.1 10^3/uL (0.0-0.7); EOSINOPHILS % (AUTO) 2.2 %; LYMPHOCYTES # (AUTO) 1.9 10^3/uL (1.5-3.5); LYMPHOCYTES % (AUTO) 30.9 %; MEAN CORPUSCULAR HGB CONC 34.3 g/dL (32.0-36.0); MEAN CORPUSCULAR VOLUME 96.3 fL (80.0-94.0); MEAN PLATELET VOLUME 7.6 fL (7.4-11.4); MONOCYTES # (AUTO) 0.3 10^3/uL (0.0-1.0); MONOCYTES % (AUTO) 5.4 %; NEUTROPHILS # (AUTO) 3.7 10^3/uL (1.5-6.6); NEUTROPHILS % (AUTO) 61.1 %; PLT - PLATELET COUNT 157 10^3/uL (130-450); RED BLOOD COUNT 4.23 10^6/uL (4.70-6.10); RED CELL DISTRIBUTION WIDTH 14.1 % (12.0-15.0); WHITE BLOOD COUNT 6.1 x10^3/uL (4.8-10.8)
[2018-05-12 08:55] LABS: HB2 TOTAL 14.9 g/dL; HEMOGLOBIN A1C 0.48 g/dL; HEMOGLOBIN A1C % 5.1 % (4.6-6.2)
[2018-05-12 08:57] LABS: INR 3.2 (0.8-1.2); PT - PROTHROMBIN TIME 35.7 secs (9.9-12.6)
[2018-05-12 09:28] LABS: ALBUMIN 4.3 g/dL (3.2-5.5); ALBUMIN/GLOBULIN RATIO 1.6 (1.0-2.2); ALKALINE PHOSPHATASE 47 IU/L (42-121); ALT ALANINE AMINOTRANSFERASE 16 IU/L (10-60); AST ASPARTATE AMINOTRANSFERASE 23 IU/L (10-42); BILIRUBIN,TOTAL 1.2 mg/dL (0.2-1.0); BUN - BLOOD UREA NITROGEN 23 mg/dL (6-20); CALCIUM 9.1 mg/dL (8.5-10.3); CARBON DIOXIDE - CO2 27 mmol/L (21-32); CHLORIDE 102 mmol/L (101-111); CHOLESTEROL 150 mg/dL; CREATININE 1.1 mg/dL (0.6-1.2); GFR - MDRD 64 (>89); GLUCOSE 105 mg/dL (70-100); HDL CHOLESTEROL 50 mg/dL; LDL CHOLESTEROL,CALCULATED 82 mg/dL; LDL/HDL RATIO 1.6 (<3.6); SODIUM 136 mmol/L (135-145); VLDL CHOLESTEROL 18 mg/dL
== END 2018-05-12 08:22 | disposition home or self-care (01) ==
LOC: LAB 08:21
PROVIDERS: ATTEND Internal Medicine
DX: M19.049 Primary osteoarthritis, unspecified hand (principal); R73.01 Impaired fasting glucose; I48.91 Unspecified atrial fibrillation; Z79.899 Other long term (current) drug therapy; I10 Essential (primary) hypertension; Z79.01 Long term (current) use of anticoagulants
CPT/HCPCS: 36415; 80053; 80061; 83036; 83721; 84443; 85025; 85610

== ENCOUNTER 2018-06-10 10:35 | Outpatient (CLI) | payer MEDICARE, BC | END 2018-06-10 10:36 | disposition home or self-care (01) | LOC: LAB 10:35 | PROVIDERS: ATTEND Internal Medicine | DX: I48.91 Unspecified atrial fibrillation (principal); Z79.01 Long term (current) use of anticoagulants | CPT/HCPCS: 85610 ==

== ENCOUNTER 2018-07-23 11:23 | Outpatient (CLI) | payer MEDICARE, BC | END 2018-07-23 11:24 | disposition home or self-care (01) | LOC: LAB 11:23 | PROVIDERS: ATTEND Internal Medicine | DX: I48.91 Unspecified atrial fibrillation (principal); Z79.01 Long term (current) use of anticoagulants | CPT/HCPCS: 85610 ==

== ENCOUNTER 2018-07-29 10:35 | Outpatient (CLI) | payer MEDICARE, BC | END 2018-07-29 10:36 | disposition home or self-care (01) | LOC: LAB 10:35 | PROVIDERS: ATTEND Internal Medicine | DX: I48.91 Unspecified atrial fibrillation (principal); Z79.01 Long term (current) use of anticoagulants | CPT/HCPCS: 85610 ==

== ENCOUNTER 2018-08-05 10:33 | Outpatient (CLI) | payer MEDICARE, BC | END 2018-08-05 10:34 | disposition home or self-care (01) | LOC: LAB 10:33 | PROVIDERS: ATTEND Internal Medicine | DX: I48.91 Unspecified atrial fibrillation (principal); Z79.01 Long term (current) use of anticoagulants | CPT/HCPCS: 36415; 85610 ==

== ENCOUNTER 2018-08-12 10:34 | Outpatient (CLI) | payer MEDICARE, BC | END 2018-08-12 10:35 | disposition home or self-care (01) | LOC: LAB 10:34 | PROVIDERS: ATTEND Internal Medicine | DX: Z79.01 Long term (current) use of anticoagulants (principal); I48.91 Unspecified atrial fibrillation | CPT/HCPCS: 85610 ==

== ENCOUNTER 2018-08-19 10:23 | Outpatient (CLI) | payer MEDICARE, BC | END 2018-08-19 10:24 | disposition home or self-care (01) | LOC: LAB 10:23 | PROVIDERS: ATTEND Internal Medicine | DX: Z79.01 Long term (current) use of anticoagulants (principal); I48.91 Unspecified atrial fibrillation | CPT/HCPCS: 85610 ==

== ENCOUNTER 2018-09-02 10:42 | Outpatient (CLI) | payer MEDICARE, BC | END 2018-09-02 10:43 | disposition home or self-care (01) | LOC: LAB 10:42 | PROVIDERS: ATTEND Internal Medicine | DX: I48.91 Unspecified atrial fibrillation (principal); Z79.01 Long term (current) use of anticoagulants | CPT/HCPCS: 85610 ==

== ENCOUNTER 2018-09-09 10:15 | Outpatient (CLI) | payer MEDICARE, BC | END 2018-09-09 10:16 | disposition home or self-care (01) | LOC: LAB 10:15 | PROVIDERS: ATTEND Internal Medicine | DX: I48.91 Unspecified atrial fibrillation (principal); Z79.01 Long term (current) use of anticoagulants | CPT/HCPCS: 85610 ==

== ENCOUNTER 2018-09-16 10:28 | Outpatient (CLI) | payer MEDICARE, BC | END 2018-09-16 10:29 | disposition home or self-care (01) | LOC: LAB 10:28 | PROVIDERS: ATTEND Internal Medicine | DX: I48.91 Unspecified atrial fibrillation (principal); Z79.01 Long term (current) use of anticoagulants | CPT/HCPCS: 85610 ==

== ENCOUNTER 2018-09-23 10:43 | Outpatient (CLI) | payer MEDICARE, BC | END 2018-09-23 23:59 | disposition home or self-care (01) | LOC: LAB 10:43 | PROVIDERS: ATTEND Internal Medicine | DX: Z79.01 Long term (current) use of anticoagulants (principal); I48.91 Unspecified atrial fibrillation | CPT/HCPCS: 85610 ==

== ENCOUNTER 2018-10-04 08:00 | Outpatient (CLI) | payer MEDICARE, BC | END 2018-10-04 23:59 | disposition home or self-care (01) | LOC: LAB 08:00 | PROVIDERS: ATTEND Internal Medicine | DX: I48.91 Unspecified atrial fibrillation (principal); Z79.01 Long term (current) use of anticoagulants | CPT/HCPCS: 85610 ==

== ENCOUNTER 2018-10-11 10:17 | Outpatient (CLI) | payer MEDICARE, BC | END 2018-10-11 10:18 | disposition home or self-care (01) | LOC: LAB 10:17 | PROVIDERS: ATTEND Internal Medicine | DX: I48.91 Unspecified atrial fibrillation (principal); Z79.01 Long term (current) use of anticoagulants | CPT/HCPCS: 85610 ==

== ENCOUNTER 2018-10-19 10:01 | Outpatient (CLI) | payer MEDICARE, BC | END 2018-10-19 10:02 | disposition home or self-care (01) | LOC: LAB 10:01 | PROVIDERS: ATTEND Internal Medicine | DX: Z79.01 Long term (current) use of anticoagulants (principal); I48.91 Unspecified atrial fibrillation | CPT/HCPCS: 85610 ==

== ENCOUNTER 2018-11-30 10:16 | Outpatient (CLI) | payer MEDICARE, BC | END 2018-11-30 10:17 | disposition home or self-care (01) | LOC: LAB 10:16 | PROVIDERS: ATTEND Family Medicine | DX: I48.91 Unspecified atrial fibrillation (principal); Z79.01 Long term (current) use of anticoagulants | CPT/HCPCS: 85610 ==

== ENCOUNTER 2018-12-28 09:58 | Outpatient (CLI) | payer MEDICARE, BC | END 2018-12-28 09:59 | disposition home or self-care (01) | LOC: LAB 09:58 | PROVIDERS: ATTEND Family Medicine | DX: Z79.01 Long term (current) use of anticoagulants (principal); I48.91 Unspecified atrial fibrillation | CPT/HCPCS: 85610 ==

== ENCOUNTER 2019-01-25 09:44 | Outpatient (CLI) | payer MEDICARE, BC | END 2019-01-25 09:45 | disposition home or self-care (01) | LOC: LAB 09:44 | PROVIDERS: ATTEND Family Medicine | DX: Z79.01 Long term (current) use of anticoagulants (principal); I48.91 Unspecified atrial fibrillation | CPT/HCPCS: 85610 ==

== ENCOUNTER 2019-02-22 10:11 | Outpatient (CLI) | payer MEDICARE, BC | END 2019-02-22 10:12 | disposition home or self-care (01) | LOC: LAB 10:11 | PROVIDERS: ATTEND Family Medicine | DX: Z79.01 Long term (current) use of anticoagulants (principal); I48.91 Unspecified atrial fibrillation | CPT/HCPCS: 85610 ==

== ENCOUNTER 2019-03-01 10:00 | Outpatient (CLI) | payer MEDICARE, BC | END 2019-03-01 10:01 | disposition home or self-care (01) | LOC: LAB 10:00 | PROVIDERS: ATTEND Family Medicine | DX: Z79.01 Long term (current) use of anticoagulants (principal); I48.91 Unspecified atrial fibrillation | CPT/HCPCS: 85610 ==

== ENCOUNTER 2019-03-08 10:05 | Outpatient (CLI) | payer MEDICARE, BC | END 2019-03-08 10:06 | disposition home or self-care (01) | LOC: LAB 10:05 | PROVIDERS: ATTEND Family Medicine | DX: Z79.01 Long term (current) use of anticoagulants (principal); I48.91 Unspecified atrial fibrillation | CPT/HCPCS: 85610 ==

== ENCOUNTER 2019-03-22 10:17 | Outpatient (CLI) | payer MEDICARE, BC | END 2019-03-22 10:18 | disposition home or self-care (01) | LOC: LAB 10:17 | PROVIDERS: ATTEND Family Medicine | DX: Z79.01 Long term (current) use of anticoagulants (principal); I48.91 Unspecified atrial fibrillation | CPT/HCPCS: 85610 ==

== ENCOUNTER 2019-04-19 09:30 | Outpatient (CLI) | payer MEDICARE, BC ==
[2019-04-19 10:09] LABS: BASOPHILS % (AUTO) 0.3 %; EOSINOPHILS # (AUTO) 0.1 10^3/uL (0.0-0.7); EOSINOPHILS % (AUTO) 1.1 %; HGB - HEMOGLOBIN 13.6 g/dL (14.0-18.0); LYMPHOCYTES # (AUTO) 1.7 10^3/uL (1.5-3.5); LYMPHOCYTES % (AUTO) 22.4 %; MEAN CORPUSCULAR HEMOGLOBIN 33.4 pg (27.0-31.0); MEAN CORPUSCULAR HGB CONC 32.9 g/dL (32.0-36.0); MEAN CORPUSCULAR VOLUME 101.7 fL (80.0-94.0); MEAN PLATELET VOLUME 9.5 fL (7.4-11.4); MONOCYTES # (AUTO) 0.3 10^3/uL (0.0-1.0); MONOCYTES % (AUTO) 4.5 %; NEUTROPHILS # (AUTO) 5.4 10^3/uL (1.5-6.6); NEUTROPHILS % (AUTO) 71.3 %; PLT - PLATELET COUNT 171 10^3/uL (130-450); RED BLOOD COUNT 4.07 10^6/uL (4.70-6.10); WHITE BLOOD COUNT 7.5 x10^3/uL (4.8-10.8)
[2019-04-19 10:29] LABS: ALBUMIN 4.3 g/dL (3.2-5.5); ALBUMIN/GLOBULIN RATIO 1.5 (1.0-2.2); ALKALINE PHOSPHATASE 45 IU/L (42-121); ALT ALANINE AMINOTRANSFERASE 15 IU/L (10-60); AST ASPARTATE AMINOTRANSFERASE 21 IU/L (10-42); BILIRUBIN,TOTAL 1.3 mg/dL (0.2-1.0); BUN - BLOOD UREA NITROGEN 22 mg/dL (6-20); CALCIUM 9.1 mg/dL (8.5-10.3); CARBON DIOXIDE - CO2 28 mmol/L (21-32); CHLORIDE 104 mmol/L (101-111); CHOL/HDL RATIO 2.7 (<5.0); CHOLESTEROL 145 mg/dL; CREATININE 0.9 mg/dL (0.6-1.2); GFR - MDRD 80 (>89); GLUCOSE 110 mg/dL (70-100); HDL CHOLESTEROL 53 mg/dL; LDL CHOLESTEROL,CALCULATED 75 mg/dL; LDL/HDL RATIO 1.4 (<3.6); SODIUM 138 mmol/L (135-145); TOTAL PROTEIN 7.2 g/dL (6.7-8.2); VLDL CHOLESTEROL 17 mg/dL
== END 2019-04-19 09:31 | disposition home or self-care (01) ==
LOC: LAB 09:30
PROVIDERS: ATTEND Family Medicine
DX: I48.91 Unspecified atrial fibrillation (principal); I10 Essential (primary) hypertension; K57.90 Diverticulosis of intestine, part unspecified, without perforation or abscess without bleeding; M17.0 Bilateral primary osteoarthritis of knee; Z79.899 Other long term (current) drug therapy; Z79.01 Long term (current) use of anticoagulants
CPT/HCPCS: 36415; 80053; 80061; 83721; 84443; 85025; 85610

== ENCOUNTER 2019-07-12 07:21 | Outpatient (CLI) | payer MEDICARE, BC | END 2019-07-12 07:22 | disposition home or self-care (01) | LOC: LAB 07:21 | PROVIDERS: ATTEND Family Medicine | DX: I48.91 Unspecified atrial fibrillation (principal); Z79.01 Long term (current) use of anticoagulants | CPT/HCPCS: 85610 ==

== ENCOUNTER 2019-08-09 07:54 | Outpatient (CLI) | payer MEDICARE, BC | END 2019-08-09 07:55 | disposition home or self-care (01) | LOC: LAB 07:54 | PROVIDERS: ATTEND Family Medicine | DX: I48.91 Unspecified atrial fibrillation (principal); Z79.01 Long term (current) use of anticoagulants | CPT/HCPCS: 85610 ==

== ENCOUNTER 2019-08-16 07:56 | Outpatient (CLI) | payer MEDICARE, BC | END 2019-08-16 07:57 | disposition home or self-care (01) | LOC: LAB 07:56 | PROVIDERS: ATTEND Family Medicine | DX: I48.91 Unspecified atrial fibrillation (principal); Z79.01 Long term (current) use of anticoagulants | CPT/HCPCS: 85610 ==

== ENCOUNTER 2019-09-13 07:46 | Outpatient (CLI) | payer MEDICARE, BC | END 2019-09-13 07:47 | disposition home or self-care (01) | LOC: LAB 07:46 | PROVIDERS: ATTEND Family Medicine | DX: I48.91 Unspecified atrial fibrillation (principal); Z79.01 Long term (current) use of anticoagulants | CPT/HCPCS: 85610 ==

== ENCOUNTER 2019-10-11 07:45 | Outpatient (CLI) | payer MEDICARE, BC | END 2019-10-11 07:46 | disposition home or self-care (01) | LOC: LAB 07:45 | PROVIDERS: ATTEND Family Medicine | DX: I48.91 Unspecified atrial fibrillation (principal); Z79.01 Long term (current) use of anticoagulants | CPT/HCPCS: 85610 ==

== ENCOUNTER 2019-12-06 07:50 | Outpatient (CLI) | payer MEDICARE, BC | END 2019-12-06 07:51 | disposition home or self-care (01) | LOC: LAB 07:50 | PROVIDERS: ATTEND Family Medicine | DX: Z79.01 Long term (current) use of anticoagulants (principal); I48.91 Unspecified atrial fibrillation | CPT/HCPCS: 85610 ==

== ENCOUNTER 2020-01-03 10:14 | Outpatient (CLI) | payer MEDICARE, BC | END 2020-01-03 10:15 | disposition home or self-care (01) | LOC: LAB 10:14 | PROVIDERS: ATTEND Family Medicine | DX: I48.91 Unspecified atrial fibrillation (principal); Z79.01 Long term (current) use of anticoagulants | CPT/HCPCS: 85610 ==

== ENCOUNTER 2020-01-18 10:50 | Outpatient (CLI) | payer MEDICARE, BC | END 2020-01-18 10:51 | disposition home or self-care (01) | LOC: LAB 10:50 | PROVIDERS: ATTEND Family Medicine | DX: I48.91 Unspecified atrial fibrillation (principal); Z79.01 Long term (current) use of anticoagulants | CPT/HCPCS: 85610 ==

== ENCOUNTER 2020-01-25 10:16 | Outpatient (CLI) | payer MEDICARE, BC | END 2020-01-25 10:17 | disposition home or self-care (01) | LOC: LAB 10:16 | PROVIDERS: ATTEND Family Medicine | DX: I48.91 Unspecified atrial fibrillation (principal); Z79.01 Long term (current) use of anticoagulants | CPT/HCPCS: 85610 ==

== ENCOUNTER 2020-02-01 10:39 | Outpatient (CLI) | payer MEDICARE, BC | END 2020-02-01 10:40 | disposition home or self-care (01) | LOC: LAB 10:39 | PROVIDERS: ATTEND Family Medicine | DX: I48.91 Unspecified atrial fibrillation (principal); Z79.01 Long term (current) use of anticoagulants | CPT/HCPCS: 85610 ==

== ENCOUNTER 2020-02-21 10:17 | Outpatient (CLI) | payer MEDICARE, BC | END 2020-02-21 10:18 | disposition home or self-care (01) | LOC: LAB 10:17 | PROVIDERS: ATTEND Family Medicine | DX: Z79.01 Long term (current) use of anticoagulants (principal); I48.91 Unspecified atrial fibrillation | CPT/HCPCS: 85610 ==

== ENCOUNTER 2020-02-28 09:52 | Outpatient (CLI) | payer MEDICARE, BC | END 2020-02-28 09:53 | disposition home or self-care (01) | LOC: LAB 09:52 | PROVIDERS: ATTEND Family Medicine | DX: I48.91 Unspecified atrial fibrillation (principal); Z79.01 Long term (current) use of anticoagulants | CPT/HCPCS: 85610 ==

== ENCOUNTER 2020-03-14 11:23 | Outpatient (CLI) | payer MEDICARE, BC | END 2020-03-14 11:24 | disposition home or self-care (01) | LOC: LAB 11:23 | PROVIDERS: ATTEND Family Medicine | DX: Z79.01 Long term (current) use of anticoagulants (principal); I48.91 Unspecified atrial fibrillation | CPT/HCPCS: 85610 ==

== ENCOUNTER 2020-04-11 11:19 | Outpatient (CLI) | payer MEDICARE, BC | END 2020-04-11 11:20 | disposition home or self-care (01) | LOC: LAB 11:19 | PROVIDERS: ATTEND Family Medicine | DX: Z79.01 Long term (current) use of anticoagulants (principal); I48.91 Unspecified atrial fibrillation | CPT/HCPCS: 85610 ==

== ENCOUNTER 2020-04-25 13:28 | Outpatient (CLI) | payer MEDICARE, BC ==
--- OUTSIDE RECORDS SUMMARY | 2020-04-25 13:32 | EXTERNAL MEDICAL SUMMARY RPT | Continuity of Care Document ---
:1935 Demographics Phone Unavailable Preferred Language Citizen Of [place] Marital Status Unknown Worship Affiliation Unknown Race Unknown Ethnic Group Unknown Author Organization [facility] Address [address] [place] [address] Phone Care Team Providers Name Role Phone MD Unavailable Unavailable Demmler Unavailable Unavailable Problems date description facility 2020-01-25 10:16 UNSPECIFIED ATRIAL FIBRILLATION [facility] 2020-01-25 10:16 ALF (CURRENT) USE OF [facility] ANTICOAGULANTS 2020-02-01 10:00 UNSPECIFIED ATRIAL FIBRILLATION [facility] 2020-02-01 10:00 ALF (CURRENT) USE OF [facility] ANTICOAGULANTS 2020-02-01 10:39 UNSPECIFIED ATRIAL FIBRILLATION [facility] 2020-02-01 10:39 ALF (CURRENT) USE OF [facility] ANTICOAGULANTS 2020-02-21 10:17 ALF (CURRENT) USE OF [facility] ANTICOAGULANTS 2020-02-28 09:52 UNSPECIFIED ATRIAL FIBRILLATION [facility] 2020-02-28 09:52 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 2020-03-14 09:15 UNSPECIFIED ATRIAL FIBRILLATION [facility] 2020-03-14 09:15 ALF (CURRENT) USE OF [facility] ANTICOAGULANTS 2020-03-14 11:23 UNSPECIFIED ATRIAL FIBRILLATION [facility] 2020-03-14 11:23 ALF (CURRENT) USE OF [facility] ANTICOAGULANTS 2020-04-02 00:00:00 TSH WITH REFLEX TO FT4 [facility] Care [facility] 2020-04-02 00:00:00 COMPREHENSIVE METABOLIC PANEL [facility] 2020-04-02 00:00:00 LIPIDS SCREEN [facility] 2020-04-02 00:00:00 HGBA1C [facility] 2020-04-02 00:00:00 [facility] 2020-04-02 00:00:00 [facility] 2020-04-11 11:19 ALF (CURRENT[facility] ANTICOAGULANTS Allergies date description facility [facility]EE V[facility]OM [facility] B[facility] NITROGLYCERIN [facility] OXYCODONE [facility] HYDROCODONE-[facility]AMINOPHEN [facility] OXYCOD[facility]EN [facility] PENICILLINS [facility] HYDROCODONE-ACETAMINOPHEN [facility] MELOXICAM [facility] NAPROXEN [facility] PENICILLINS [facility] ONION [facility] CODEINE [facility] BACLOFEN [facility] PENICILLIN G [facility] QU[facility]APINE [facility] No Known Drug Allergies [facility] LACTASE [facility] ANIMAL DANDER [facility] PROCAINE [facility] Procedures date description facility 2020-02-01 00:00:00 ANTICOAG MGMT PT [facility] date description facility 2020-02-01 00[facility]00:[facility] date description facility 2020-02-22 00:00:00 ANTICOAG MGMT PT [facility]FARIN [facility] date description facility 2020-02-22 00:00:00 [facility] date description facility 2020-02-28 00:00:00 ANTICOAG MGMT PT [facility]IN [facility] date description facility 2020-02-28 00:00:00 [facility] date description facility 2020-03-14 00:00:00 ANTICOAG MGMT PT [facility] date description facility 2020-03-14 00:00:00 [facility] date description facility 2020-04-11 00:00:00 ANTICOAG MGMT PT [facility]IN [facility] date description facility 2020-04-11 00:00:00 [facility] Results test status date ordered by attending specimen juana e null F 2020-02-01 DEMM. [facility] 2019-04 0 10:44:00 10:44:00 facility observation status value reference units lab abnor mal line notes range code [facility] F 2.0 0.8-1.2 H Y [facility] O ral Anticoag ulant Indicati on INR rang e Venous Thrombos is, P.E. 2.0 - 3.0 Mech anical Valve 2.5 - 3.5 test status date ordered by attending specimen juana e [facility] F 2020-02-21 DEMM. [facility] 2019-04 10:26:00 10:26:00 facility observation status value reference units lab abnor mal line notes range code [facility] F 1.9 0.8-1.2 H Y [facility] O ral Anticoag ulant Indicati on INR rang e Venous Thrombos is, P.E. 2.0 - 3.0 Mech anical Valve 2.5 - 3.5 test status date ordered by attending specimen juana e null F 2020-02-28 DEMM. [facility] 2019-04 09:58:00 09:58:00 facility observation status value reference units lab abnor mal line notes range code [facility] F 2.1 0.8-1.2 H Y [facility] O ral Anticoag ulant Indicati on INR rang e Venous Thrombos is, P.E. 2.0 - 3.0 Mech anical Valve 2.5 - 3.5 test status date ordered by attending specimen juana e null F 2020-03-14 DEMM. [facility] 2019-04 12:26:00 12:11:00 facility observation status value reference units lab abnor mal line notes range code [facility] F 2.5 0.8-1.2 H Y [facility] O ral Anticoag ulant Indicati on INR rang e Venous Thrombos is, P.E. 2.0 - 3.0 [facility].5 - 3.5 test status date ordered by attending specimen juana e null F 2020-04-11 DEMM.01 [facility] 2019-04 11:34:00 11:34:00 facility observation status value reference units lab abnor mal line notes range code [facility] F 3.1 0.8-1.2 H Y [facility] O ral Anticoag ulant Indicati on INR rang e Venous Thrombos is, P.E. 2.0 - 3.0 [facility] Val[facility] 2.5 - 3.5 test status date ordered by attending specimen juana e international_no unknown 2020-02-01 unknown unknown unkno wn rmalized_ratio_IN 00:00:00 R_ INR_in_Platelet_ unknown 2020-02-01 unknown unknown unkno wn poor_plasma_by_Co 00:00:00 agulation_assay international_no unknown 2020-02-22 unknown unknown unkno wn rmalized_ratio_IN 00:00:00 R_ INR_in_Platelet_ unknown 2020-02-22 unknown unknown unkno wn poor_plasma_by_Co 00:00:00 agulation_assay international_no unknown 2020-02-28 unknown unknown unkno wn rmalized_ratio_IN 00:00:00 R_ INR_in_Platelet_ unknown 2020-02-28 unknown unknown unkno wn poor_plasma_by_Co 00:00:00 agulation_assay international_no unknown 2020-03-14 unknown unknown unkno wn rmalized_ratio_IN 00:00:00 R_ INR_in_Platelet_ unknown 2020-03-14 unknown unknown unkno wn poor_plasma_by_Co 00:00:00 agulation_assay international_no unknown 2020-04-11 unknown unknown unkno wn rmalized_ratio_IN 00:00:00 R_ INR_in_Platelet_ unknown 2020-04-11 unknown unknown unkno wn poor_plasma_by_Co 00:00:00 agulation_assay facility observation status value reference units lab abnor mal line range code notes [facility] internationa unknown 2.0 unknown _309 unknown unknown [facility] l_normalized_ [facility] ratio_INR_ [facility] INR_in_Plate unknown 2.0 unknown _[id number] unknown unknown [facility] let_poor_plas -6 [facility] ma_by_Coagula tion_assay [facility] internationa unknown 1.9 unknown _309 unknown unknown [facility] l_normalized_ [facility] ratio_INR_ [facility] INR_in_Plate unknown 1.9 unknown _[id number] unknown unknown [facility] let_poor_plas -6 [facility] ma_by_Coagula tion_assay [facility] internationa unknown 2.1 unknown _309 unknown unknown [facility] l_normalized_ [facility] ratio_INR_ [facility] INR_in_Plate unknown 2.1 unknown _[id number] unknown unknown [facility] let_poor_plas -6 [facility] ma_by_Coagula tion_assay [facility] intern[facility]a unknown 2.5 unknown _309 unknown unknown [facility] l_normalized_ [facility] ratio_INR_ [facility] INR_in_Plate unknown 2.5 unknown _6301 unknown unknown Primary Care let_poor_plas -6 [facility] ma_by_Coagula tion_assay [facility] internationa unknown 3.1 unknown _309 unknown unknown [facility] l_normalized_ [facility] ratio_INR_ [facility] INR_in_Plate unknown 3.1 unknown _6301 unknown unknown [facility] let_poor_plas -6 [facility] ma_by_Coagula tion_assay Social History date description facility [id number]
== END 2020-04-25 13:29 | disposition home or self-care (01) ==
LOC: LAB 13:28
PROVIDERS: ATTEND Family Medicine
DX: Z79.01 Long term (current) use of anticoagulants (principal); I48.91 Unspecified atrial fibrillation
CPT/HCPCS: 85610

== ENCOUNTER 2020-05-23 07:00 | Outpatient (CLI) | payer MEDICARE, BC ==
[2020-05-23 10:13] LABS: BASOPHILS % (AUTO) 0.3 %; EOSINOPHILS # (AUTO) 0.1 10^3/uL (0.0-0.7); EOSINOPHILS % (AUTO) 1.4 %; HGB - HEMOGLOBIN 14.2 g/dL (14.0-18.0); LYMPHOCYTES # (AUTO) 1.4 10^3/uL (1.5-3.5); LYMPHOCYTES % (AUTO) 24.4 %; MEAN CORPUSCULAR HEMOGLOBIN 33.6 pg (27.0-31.0); MEAN CORPUSCULAR HGB CONC 32.9 g/dL (32.0-36.0); MEAN CORPUSCULAR VOLUME 102.1 fL (80.0-94.0); MEAN PLATELET VOLUME 9.5 fL (7.4-11.4); MONOCYTES # (AUTO) 0.3 10^3/uL (0.0-1.0); MONOCYTES % (AUTO) 5.3 %; NEUTROPHILS % (AUTO) 68.3 %; PLT - PLATELET COUNT 185 10^3/uL (130-450); RED BLOOD COUNT 4.22 10^6/uL (4.70-6.10); RED CELL DISTRIBUTION WIDTH 12.7 % (12.0-15.0); WHITE BLOOD COUNT 5.8 x10^3/uL (4.8-10.8)
[2020-05-23 10:30] LABS: ALBUMIN 4.5 g/dL (3.2-5.5); ALBUMIN/GLOBULIN RATIO 1.6 (1.0-2.2); ALKALINE PHOSPHATASE 48 IU/L (42-121); ALT ALANINE AMINOTRANSFERASE 17 IU/L (10-60); AST ASPARTATE AMINOTRANSFERASE 24 IU/L (10-42); BILIRUBIN,TOTAL 1.2 mg/dL (0.2-1.0); BUN - BLOOD UREA NITROGEN 25 mg/dL (6-20); CALCIUM 9.4 mg/dL (8.5-10.3); CARBON DIOXIDE - CO2 27 mmol/L (21-32); CHLORIDE 102 mmol/L (101-111); CHOLESTEROL 148 mg/dL; GLUCOSE 110 mg/dL (70-100); HDL CHOLESTEROL 49 mg/dL; LDL CHOLESTEROL,CALCULATED 83 mg/dL; LDL/HDL RATIO 1.7 (<3.6); TOTAL PROTEIN 7.3 g/dL (6.7-8.2); VLDL CHOLESTEROL 16 mg/dL
[2020-05-23 14:05] LABS: HEMOGLOBIN A1c% 5.3 % (4.27-6.07)
== END 2020-05-23 23:59 | disposition home or self-care (01) ==
LOC: LAB 07:00
PROVIDERS: ATTEND Family Medicine
DX: Z00.00 Encounter for general adult medical examination without abnormal findings (principal); M19.071 Primary osteoarthritis, right ankle and foot; I48.91 Unspecified atrial fibrillation; R73.01 Impaired fasting glucose; I42.9 Cardiomyopathy, unspecified; I10 Essential (primary) hypertension; Z79.01 Long term (current) use of anticoagulants; Z12.5 Encounter for screening for malignant neoplasm of prostate; M19.049 Primary osteoarthritis, unspecified hand
CPT/HCPCS: 36415; 80053; 80061; 83036; 84443; 85025; 85610; G0103; 83721; 84153

== ENCOUNTER 2020-06-20 11:10 | Outpatient (CLI) | payer MEDICARE, BC | END 2020-06-20 11:11 | disposition home or self-care (01) | LOC: LAB 11:10 | PROVIDERS: ATTEND Family Medicine | DX: Z79.01 Long term (current) use of anticoagulants (principal); I48.91 Unspecified atrial fibrillation | CPT/HCPCS: 85610 ==

== ENCOUNTER 2020-06-21 08:00 | Outpatient (CLI) | payer MEDICARE, BC | END 2020-06-21 23:59 | disposition home or self-care (01) | LOC: LAB.WCP 08:00 | PROVIDERS: ATTEND Family Medicine | DX: I48.91 Unspecified atrial fibrillation (principal); Z79.01 Long term (current) use of anticoagulants ==

== ENCOUNTER 2020-07-18 11:29 | Outpatient (CLI) | payer MEDICARE, BC | END 2020-07-18 11:30 | disposition home or self-care (01) | LOC: LAB 11:29 | PROVIDERS: ATTEND Family Medicine | DX: I48.91 Unspecified atrial fibrillation (principal); Z79.01 Long term (current) use of anticoagulants | CPT/HCPCS: 85610 ==

== ENCOUNTER 2020-08-01 11:31 | Outpatient (CLI) | payer MEDICARE, BC | END 2020-08-01 11:32 | disposition home or self-care (01) | LOC: LAB 11:31 | PROVIDERS: ATTEND Family Medicine | DX: I48.91 Unspecified atrial fibrillation (principal); Z79.01 Long term (current) use of anticoagulants | CPT/HCPCS: 85610 ==

== ENCOUNTER 2020-08-29 11:19 | Outpatient (CLI) | payer MEDICARE, BC | END 2020-08-29 11:20 | disposition home or self-care (01) | LOC: LAB 11:19 | PROVIDERS: ATTEND Family Medicine | DX: Z79.01 Long term (current) use of anticoagulants (principal); I48.91 Unspecified atrial fibrillation | CPT/HCPCS: 36416; 85610 ==

== ENCOUNTER 2020-09-05 10:30 | Outpatient (CLI) | payer MEDICARE, BC | END 2020-09-05 10:31 | disposition home or self-care (01) | LOC: LAB 10:30 | PROVIDERS: ATTEND Family Medicine | DX: Z79.01 Long term (current) use of anticoagulants (principal); I48.91 Unspecified atrial fibrillation | CPT/HCPCS: 36416; 85610 ==

== ENCOUNTER 2020-09-19 10:56 | Outpatient (CLI) | payer MEDICARE, BC | END 2020-09-19 10:57 | disposition home or self-care (01) | LOC: LAB 10:56 | PROVIDERS: ATTEND Family Medicine | DX: Z79.01 Long term (current) use of anticoagulants (principal); I48.91 Unspecified atrial fibrillation | CPT/HCPCS: 36416; 85610 ==

== ENCOUNTER 2020-10-03 08:18 | Outpatient (CLI) | payer MEDICARE, BC | END 2020-10-03 08:19 | disposition home or self-care (01) | LOC: LAB 08:18 | PROVIDERS: ATTEND Family Medicine | DX: I48.91 Unspecified atrial fibrillation (principal); Z79.01 Long term (current) use of anticoagulants | CPT/HCPCS: 36416; 85610 ==

== ENCOUNTER 2020-10-17 10:51 | Outpatient (CLI) | payer MEDICARE, BC | END 2020-10-17 10:52 | disposition home or self-care (01) | LOC: LAB 10:51 | PROVIDERS: ATTEND Family Medicine | DX: Z79.01 Long term (current) use of anticoagulants (principal); I48.91 Unspecified atrial fibrillation | CPT/HCPCS: 36416; 85610 ==

== ENCOUNTER 2020-11-07 11:27 | Outpatient (CLI) | payer MEDICARE, BC | END 2020-11-07 11:28 | disposition home or self-care (01) | LOC: LAB 11:27 | PROVIDERS: ATTEND Family Medicine | DX: Z79.01 Long term (current) use of anticoagulants (principal); I48.91 Unspecified atrial fibrillation | CPT/HCPCS: 36416; 85610 ==

== ENCOUNTER 2020-11-21 11:08 | Outpatient (CLI) | payer MEDICARE, BC | END 2020-11-21 11:09 | disposition home or self-care (01) | LOC: LAB 11:08 | PROVIDERS: ATTEND Family Medicine | DX: Z79.01 Long term (current) use of anticoagulants (principal); I48.91 Unspecified atrial fibrillation | CPT/HCPCS: 85610 ==

== ENCOUNTER 2020-12-12 09:59 | Outpatient (CLI) | payer MEDICARE, BC | END 2020-12-12 10:00 | disposition home or self-care (01) | LOC: LAB 09:59 | PROVIDERS: ATTEND Family Medicine | DX: Z79.01 Long term (current) use of anticoagulants (principal); I48.91 Unspecified atrial fibrillation | CPT/HCPCS: 36416; 85610 ==

== ENCOUNTER 2021-01-09 11:18 | Outpatient (CLI) | payer MEDICARE, BC | END 2021-01-09 11:19 | disposition home or self-care (01) | LOC: LAB 11:18 | PROVIDERS: ATTEND Family Medicine | DX: Z79.01 Long term (current) use of anticoagulants (principal); I48.91 Unspecified atrial fibrillation | CPT/HCPCS: 36416; 85610 ==

== ENCOUNTER 2021-02-06 11:37 | Outpatient (CLI) | payer MEDICARE, BC | END 2021-02-06 11:38 | disposition home or self-care (01) | LOC: LAB 11:37 | PROVIDERS: ATTEND Family Medicine | DX: Z79.01 Long term (current) use of anticoagulants (principal); I48.91 Unspecified atrial fibrillation | CPT/HCPCS: 36416; 85610 ==

== ENCOUNTER 2021-02-13 11:13 | Outpatient (CLI) | payer MEDICARE, BC | END 2021-02-13 11:14 | disposition home or self-care (01) | LOC: LAB 11:13 | PROVIDERS: ATTEND Family Medicine | DX: Z79.01 Long term (current) use of anticoagulants (principal); I48.91 Unspecified atrial fibrillation | CPT/HCPCS: 36416; 85610 ==

== ENCOUNTER 2021-03-13 10:55 | Outpatient (CLI) | payer MEDICARE, BC | END 2021-03-13 10:56 | disposition home or self-care (01) | LOC: LAB 10:55 | PROVIDERS: ATTEND Family Medicine | DX: I48.91 Unspecified atrial fibrillation (principal); Z79.01 Long term (current) use of anticoagulants | CPT/HCPCS: 36416; 85610 ==

== ENCOUNTER 2021-04-03 10:17 | Outpatient (CLI) | payer MEDICARE, BC | END 2021-04-03 10:18 | disposition home or self-care (01) | LOC: LAB 10:17 | PROVIDERS: ATTEND Family Medicine | DX: I48.91 Unspecified atrial fibrillation (principal); Z79.01 Long term (current) use of anticoagulants | CPT/HCPCS: 36416; 85610 ==

== ENCOUNTER 2021-05-01 13:16 | Outpatient (CLI) | payer MEDICARE, BC | END 2021-05-01 13:17 | disposition home or self-care (01) | LOC: LAB 13:16 | PROVIDERS: ATTEND Family Medicine | DX: Z79.01 Long term (current) use of anticoagulants (principal); I48.91 Unspecified atrial fibrillation | CPT/HCPCS: 36416; 85610 ==

== ENCOUNTER 2021-05-29 11:47 | Outpatient (CLI) | payer MEDICARE, BC | END 2021-05-29 11:48 | disposition home or self-care (01) | LOC: LAB 11:47 | PROVIDERS: ATTEND Family Medicine | DX: I48.91 Unspecified atrial fibrillation (principal); Z79.01 Long term (current) use of anticoagulants | CPT/HCPCS: 36416; 85610 ==

== ENCOUNTER 2021-06-13 10:04 | Outpatient (CLI) | payer MEDICARE, BC ==
[2021-06-13 10:26] LABS: BASOPHILS % (AUTO) 0.4 %; EOSINOPHILS # (AUTO) 0.1 10^3/uL (0.0-0.7); HCT - HEMATOCRIT 42.8 % (42.0-52.0); HGB - HEMOGLOBIN 14.1 g/dL (14.0-18.0); LYMPHOCYTES # (AUTO) 1.7 10^3/uL (1.5-3.5); LYMPHOCYTES % (AUTO) 25.1 %; MEAN CORPUSCULAR HEMOGLOBIN 33.4 pg (27.0-31.0); MEAN CORPUSCULAR HGB CONC 32.9 g/dL (32.0-36.0); MEAN CORPUSCULAR VOLUME 101.4 fL (80.0-94.0); MEAN PLATELET VOLUME 9.6 fL (7.4-11.4); MONOCYTES # (AUTO) 0.4 10^3/uL (0.0-1.0); MONOCYTES % (AUTO) 5.7 %; NEUTROPHILS # (AUTO) 4.6 10^3/uL (1.5-6.6); NEUTROPHILS % (AUTO) 66.7 %; PLT - PLATELET COUNT 183 10^3/uL (130-450); RED BLOOD COUNT 4.22 10^6/uL (4.70-6.10); WHITE BLOOD COUNT 6.9 x10^3/uL (4.8-10.8)
[2021-06-13 10:43] LABS: ALBUMIN 4.5 g/dL (3.2-5.5); ALBUMIN/GLOBULIN RATIO 1.5 (1.0-2.2); BILIRUBIN,TOTAL 1.3 mg/dL (0.2-1.0); CALCIUM 9.2 mg/dL (8.5-10.3); POTASSIUM 4.9 mmol/L (3.5-5.0); TOTAL PROTEIN 7.6 g/dL (6.7-8.2)
[2021-06-13 10:59] LABS: THYROID STIMULATING HORMONE 1.47 uIU/mL (0.34-5.60)
[2021-06-13 11:22] LABS: ESTIMATED AVERAGE GLUCOSE 103 mg/dL (70-100); HEMOGLOBIN A1c% 5.2 % (4.27-6.07)
[2021-06-13 15:21] LABS: CHOL/HDL RATIO 2.9 (<5.0); CHOLESTEROL 143 mg/dL; HDL CHOLESTEROL 49 mg/dL; LDL CHOLESTEROL,CALCULATED 73 mg/dL; LDL/HDL RATIO 1.5 (<3.6); TRIGLYCERIDES 105 mg/dL; VLDL CHOLESTEROL 21 mg/dL
== END 2021-06-13 10:05 | disposition home or self-care (01) ==
LOC: LAB 10:04
PROVIDERS: ATTEND Family Medicine
DX: I10 Essential (primary) hypertension (principal); Z79.01 Long term (current) use of anticoagulants; I48.91 Unspecified atrial fibrillation; M19.071 Primary osteoarthritis, right ankle and foot; I42.9 Cardiomyopathy, unspecified; R73.01 Impaired fasting glucose
CPT/HCPCS: 36415; 80053; 80061; 83036; 83721; 84443; 85025

== ENCOUNTER 2021-06-26 11:02 | Outpatient (CLI) | payer MEDICARE, BC | END 2021-06-26 11:03 | disposition home or self-care (01) | LOC: LAB 11:02 | PROVIDERS: ATTEND Family Medicine | DX: Z79.01 Long term (current) use of anticoagulants (principal); I48.91 Unspecified atrial fibrillation | CPT/HCPCS: 36416; 85610 ==

== ENCOUNTER 2021-07-24 11:07 | Outpatient (CLI) | payer MEDICARE, BC | END 2021-07-24 11:08 | disposition home or self-care (01) | LOC: LAB 11:07 | PROVIDERS: ATTEND Family Medicine | DX: I48.91 Unspecified atrial fibrillation (principal); Z79.01 Long term (current) use of anticoagulants | CPT/HCPCS: 36416; 85610 ==

== ENCOUNTER 2021-08-21 09:37 | Outpatient (CLI) | payer MEDICARE, BC | END 2021-08-21 09:38 | disposition home or self-care (01) | LOC: LAB 09:37 | PROVIDERS: ATTEND Family Medicine | DX: I48.91 Unspecified atrial fibrillation (principal); Z79.01 Long term (current) use of anticoagulants | CPT/HCPCS: 36416; 85610 ==

== ENCOUNTER 2021-10-16 10:56 | Outpatient (CLI) | payer MEDICARE, BC | END 2021-10-16 10:57 | disposition home or self-care (01) | LOC: LAB 10:56 | PROVIDERS: ATTEND Family Medicine | DX: I48.91 Unspecified atrial fibrillation (principal); Z79.01 Long term (current) use of anticoagulants | CPT/HCPCS: 36416; 85610 ==

== ENCOUNTER 2021-11-13 10:19 | Outpatient (CLI) | payer MEDICARE, BC | END 2021-11-13 10:20 | disposition home or self-care (01) | LOC: LAB 10:19 | PROVIDERS: ATTEND Family Medicine | DX: I48.91 Unspecified atrial fibrillation (principal); Z79.01 Long term (current) use of anticoagulants | CPT/HCPCS: 36416; 85610 ==

== ENCOUNTER 2021-12-11 11:12 | Outpatient (CLI) | payer MEDICARE, BC | END 2021-12-11 11:13 | disposition home or self-care (01) | LOC: LAB 11:12 | PROVIDERS: ATTEND Family Medicine | DX: I48.91 Unspecified atrial fibrillation (principal); Z79.01 Long term (current) use of anticoagulants | CPT/HCPCS: 36416; 85610 ==

== ENCOUNTER 2022-01-08 11:00 | Outpatient (CLI) | payer MEDICARE, BC | END 2022-01-08 11:01 | disposition home or self-care (01) | LOC: LAB 11:00 | PROVIDERS: ATTEND Family Medicine | DX: I48.91 Unspecified atrial fibrillation (principal); Z79.01 Long term (current) use of anticoagulants | CPT/HCPCS: 36416; 85610 ==

== ENCOUNTER 2022-02-05 11:12 | Outpatient (CLI) | payer MEDICARE, BC | END 2022-02-05 11:13 | disposition home or self-care (01) | LOC: LAB 11:12 | PROVIDERS: ATTEND Family Medicine | DX: Z79.01 Long term (current) use of anticoagulants (principal); I48.91 Unspecified atrial fibrillation | CPT/HCPCS: 36416; 85610 ==

== ENCOUNTER 2022-02-19 11:17 | Outpatient (CLI) | payer MEDICARE, BC | END 2022-02-19 11:18 | disposition home or self-care (01) | LOC: LAB 11:17 | PROVIDERS: ATTEND Family Medicine | DX: Z79.01 Long term (current) use of anticoagulants (principal); I48.91 Unspecified atrial fibrillation | CPT/HCPCS: 36416; 85610 ==

== ENCOUNTER 2022-03-05 11:28 | Outpatient (CLI) | payer MEDICARE, BC | END 2022-03-05 11:29 | disposition home or self-care (01) | LOC: LAB 11:28 | PROVIDERS: ATTEND Family Medicine | DX: Z79.01 Long term (current) use of anticoagulants (principal); I48.91 Unspecified atrial fibrillation | CPT/HCPCS: 36416; 85610 ==

== ENCOUNTER 2022-04-07 10:47 | Outpatient (CLI) | payer MEDICARE, BC | END 2022-04-07 10:48 | disposition home or self-care (01) | LOC: LAB 10:47 | PROVIDERS: ATTEND Family Medicine | DX: Z79.01 Long term (current) use of anticoagulants (principal); I48.91 Unspecified atrial fibrillation | CPT/HCPCS: 36416; 85610 ==

== ENCOUNTER 2022-04-30 11:22 | Outpatient (CLI) | payer MEDICARE, BC | END 2022-04-30 11:23 | disposition home or self-care (01) | LOC: LAB 11:22 | PROVIDERS: ATTEND Family Medicine | DX: Z79.01 Long term (current) use of anticoagulants (principal); I48.91 Unspecified atrial fibrillation | CPT/HCPCS: 36416; 85610 ==

== ENCOUNTER 2022-05-28 11:31 | Outpatient (CLI) | payer MEDICARE, BC | END 2022-05-28 11:32 | disposition home or self-care (01) | LOC: LAB 11:31 | PROVIDERS: ATTEND Family Medicine | DX: Z79.01 Long term (current) use of anticoagulants (principal); I48.91 Unspecified atrial fibrillation | CPT/HCPCS: 36416; 85610 ==

== ENCOUNTER 2022-06-25 11:21 | Outpatient (CLI) | payer MEDICARE, BC | END 2022-06-25 11:22 | disposition home or self-care (01) | LOC: LAB 11:21 | PROVIDERS: ATTEND Family Medicine | DX: Z79.01 Long term (current) use of anticoagulants (principal); I48.91 Unspecified atrial fibrillation | CPT/HCPCS: 36416; 85610 ==

== ENCOUNTER 2022-07-23 11:52 | Outpatient (CLI) | payer MEDICARE, BC | END 2022-07-23 11:53 | disposition home or self-care (01) | LOC: LAB 11:52 | PROVIDERS: ATTEND Family Medicine | DX: Z79.01 Long term (current) use of anticoagulants (principal); I48.91 Unspecified atrial fibrillation | CPT/HCPCS: 36416; 85610 ==

== ENCOUNTER 2022-09-03 11:12 | Outpatient (CLI) | payer MEDICARE, BC | END 2022-09-03 11:13 | disposition home or self-care (01) | LOC: LAB 11:12 | PROVIDERS: ATTEND Family Medicine | DX: Z79.01 Long term (current) use of anticoagulants (principal); I48.91 Unspecified atrial fibrillation | CPT/HCPCS: 36416; 85610 ==

== ENCOUNTER 2022-10-01 10:24 | Outpatient (CLI) | payer MEDICARE, BC | END 2022-10-01 10:25 | disposition home or self-care (01) | LOC: LAB 10:24 | PROVIDERS: ATTEND Family Medicine | DX: Z79.01 Long term (current) use of anticoagulants (principal); I48.91 Unspecified atrial fibrillation | CPT/HCPCS: 36416; 85610 ==

== ENCOUNTER 2022-10-06 09:59 | Outpatient (CLI) | payer MEDICARE, BC ==
[2022-10-06 10:12] LABS: BASOPHILS % (AUTO) 0.4 %; EOSINOPHILS # (AUTO) 0.1 10^3/uL (0.0-0.7); EOSINOPHILS % (AUTO) 1.2 %; HCT - HEMATOCRIT 38.5 % (42.0-52.0); HGB - HEMOGLOBIN 12.6 g/dL (14.0-18.0); LYMPHOCYTES # (AUTO) 1.5 10^3/uL (1.5-3.5); MEAN CORPUSCULAR HEMOGLOBIN 32.9 pg (27.0-31.0); MEAN CORPUSCULAR HGB CONC 32.7 g/dL (32.0-36.0); MEAN CORPUSCULAR VOLUME 100.5 fL (80.0-94.0); MEAN PLATELET VOLUME 9.2 fL (7.4-11.4); MONOCYTES # (AUTO) 0.4 10^3/uL (0.0-1.0); MONOCYTES % (AUTO) 5.4 %; NEUTROPHILS % (AUTO) 73.8 %; PLT - PLATELET COUNT 192 10^3/uL (130-450); RED BLOOD COUNT 3.83 10^6/uL (4.70-6.10); RED CELL DISTRIBUTION WIDTH 13.8 % (12.0-15.0); WHITE BLOOD COUNT 8.1 x10^3/uL (4.8-10.8)
[2022-10-06 10:31] LABS: ALBUMIN 4.2 g/dL (3.2-5.5); ALBUMIN/GLOBULIN RATIO 1.2 (1.0-2.2); ALKALINE PHOSPHATASE 58 IU/L (42-121); ALT ALANINE AMINOTRANSFERASE 18 IU/L (10-60); AST ASPARTATE AMINOTRANSFERASE 22 IU/L (10-42); BILIRUBIN,TOTAL 1.3 mg/dL (0.2-1.0); BUN - BLOOD UREA NITROGEN 23 mg/dL (6-20); CALCIUM 9.5 mg/dL (8.5-10.3); CARBON DIOXIDE - CO2 28 mmol/L (21-32); CHLORIDE 103 mmol/L (101-111); CHOL/HDL RATIO 2.4 (<5.0); CHOLESTEROL 130 mg/dL; CREATININE 0.9 mg/dL (0.6-1.2); GFR - MDRD 80 (>89); GLUCOSE 122 mg/dL (70-100); HDL CHOLESTEROL 55 mg/dL; LDL CHOLESTEROL,CALCULATED 61 mg/dL; LDL/HDL RATIO 1.1 (<3.6); POTASSIUM 5.2 mmol/L (3.5-5.0); SODIUM 137 mmol/L (135-145); TOTAL PROTEIN 7.6 g/dL (6.7-8.2); TRIGLYCERIDES 68 mg/dL; VLDL CHOLESTEROL 14 mg/dL
[2022-10-06 10:41] LABS: THYROID STIMULATING HORMONE 1.8 uIU/mL (0.34-5.60)
[2022-10-06 12:23] LABS: ESTIMATED AVERAGE GLUCOSE 100 mg/dL (70-100); HEMOGLOBIN A1c% 5.1 % (4.27-6.07)
== END 2022-10-06 10:00 | disposition home or self-care (01) ==
LOC: LAB 09:59
PROVIDERS: ATTEND Family Medicine
DX: I10 Essential (primary) hypertension (principal); R73.9 Hyperglycemia, unspecified; M15.9 Polyosteoarthritis, unspecified; G14 Postpolio syndrome; I48.91 Unspecified atrial fibrillation
CPT/HCPCS: 36415; 80053; 80061; 83036; 83721; 84443; 85025

== ENCOUNTER 2022-11-06 15:18 | Outpatient (CLI) | payer MEDICARE, BC ==
--- NOTE | 2022-11-07 11:34 | XRAY Report ---
PROCEDURE: Cervical Spine 2 View INDICATIONS: NECK PAIN TECHNIQUE: 3 view(s) of the cervical spine were acquired. COMPARISON: None. FINDINGS: Bones: No fractures or dislocations to the C7 level. The lateral masses of C1 appear intact on the odontoid view. No suspicious bony lesions. Severe cervical spondylosis. Multilevel facet arthropath y. Mild anterolisthesis of C4 on C5 and C5 on C6. Soft tissues: No prevertebral soft tissue swelling. IMPRESSION: Severe cervical spondylosis. Reviewed by: Jag Michel MD on 11/07/2022 11:33 AM PDT Approved by: Jag Michel MD on 11/07/2022 11:33 AM PDT Station ID: [id number]
== END 2022-11-06 15:19 | disposition home or self-care (01) ==
LOC: DI 15:18
PROVIDERS: ATTEND Registered Nurse
DX: M47.812 Spondylosis without myelopathy or radiculopathy, cervical region (principal)

== ENCOUNTER 2022-11-26 09:19 | Outpatient (CLI) | payer MEDICARE, BC | END 2022-11-26 09:20 | disposition home or self-care (01) | LOC: LAB 09:19 | PROVIDERS: ATTEND Family Medicine | DX: Z79.01 Long term (current) use of anticoagulants (principal); I48.91 Unspecified atrial fibrillation | CPT/HCPCS: 36416; 85610 ==

== ENCOUNTER 2022-12-23 11:04 | Outpatient (CLI) | payer MEDICARE, BC | END 2022-12-23 11:05 | disposition home or self-care (01) | LOC: LAB 11:04 | PROVIDERS: ATTEND Family Medicine | DX: Z79.01 Long term (current) use of anticoagulants (principal); I48.91 Unspecified atrial fibrillation | CPT/HCPCS: 36416; 85610 ==

== ENCOUNTER 2023-01-20 12:16 | Outpatient (CLI) | payer MEDICARE, BC | END 2023-01-20 12:17 | disposition home or self-care (01) | LOC: LAB 12:16 | PROVIDERS: ATTEND Family Medicine | DX: Z79.01 Long term (current) use of anticoagulants (principal); I48.91 Unspecified atrial fibrillation | CPT/HCPCS: 36416; 85610 ==

== ENCOUNTER 2023-02-17 11:53 | Outpatient (CLI) | payer MEDICARE, BC | END 2023-02-17 11:54 | disposition home or self-care (01) | LOC: LAB 11:53 | PROVIDERS: ATTEND Family Medicine | DX: Z79.01 Long term (current) use of anticoagulants (principal); I48.91 Unspecified atrial fibrillation | CPT/HCPCS: 36416; 85610 ==

== ENCOUNTER 2023-03-03 10:21 | Outpatient (CLI) | payer MEDICARE, BC | END 2023-03-03 10:22 | disposition home or self-care (01) | LOC: LAB 10:21 | PROVIDERS: ATTEND Family Medicine | DX: Z79.01 Long term (current) use of anticoagulants (principal); I48.91 Unspecified atrial fibrillation | CPT/HCPCS: 36416; 85610 ==

== ENCOUNTER 2023-03-17 11:42 | Outpatient (CLI) | payer MEDICARE, BC | END 2023-03-17 11:43 | disposition home or self-care (01) | LOC: LAB 11:42 | PROVIDERS: ATTEND Family Medicine | DX: Z79.01 Long term (current) use of anticoagulants (principal); I48.91 Unspecified atrial fibrillation | CPT/HCPCS: 36416; 85610 ==

== ENCOUNTER 2023-04-14 11:09 | Outpatient (CLI) | payer MEDICARE, BC | END 2023-04-14 11:10 | disposition home or self-care (01) | LOC: LAB 11:09 | PROVIDERS: ATTEND Family Medicine | DX: I48.91 Unspecified atrial fibrillation (principal); Z79.01 Long term (current) use of anticoagulants | CPT/HCPCS: 36416; 85610 ==

== ENCOUNTER 2023-04-20 09:57 | Outpatient (CLI) | payer MEDICARE, BC ==
[2023-04-20 10:13] LABS: BASOPHILS % (AUTO) 0.3 %; EOSINOPHILS # (AUTO) 0.1 10^3/uL (0.0-0.7); EOSINOPHILS % (AUTO) 0.7 %; LYMPHOCYTES # (AUTO) 3.3 10^3/uL (1.5-3.5); MEAN CORPUSCULAR HEMOGLOBIN 33.7 pg (27.0-31.0); MEAN CORPUSCULAR HGB CONC 32.6 g/dL (32.0-36.0); MEAN CORPUSCULAR VOLUME 103.4 fL (80.0-94.0); MEAN PLATELET VOLUME 9.3 fL (7.4-11.4); MONOCYTES # (AUTO) 0.6 10^3/uL (0.0-1.0); MONOCYTES % (AUTO) 5.5 %; NEUTROPHILS # (AUTO) 7.2 10^3/uL (1.5-6.6); NEUTROPHILS % (AUTO) 64.1 %; PLT - PLATELET COUNT 214 10^3/uL (130-450); RED BLOOD COUNT 4.16 10^6/uL (4.70-6.10); RED CELL DISTRIBUTION WIDTH 14.2 % (12.0-15.0); WHITE BLOOD COUNT 11.3 x10^3/uL (4.8-10.8)
[2023-04-20 10:29] LABS: ALBUMIN 4.2 g/dL (3.2-5.5); ALBUMIN/GLOBULIN RATIO 1.4 (1.0-2.2); ALKALINE PHOSPHATASE 40 IU/L (42-121); ALT ALANINE AMINOTRANSFERASE 14 IU/L (10-60); AST ASPARTATE AMINOTRANSFERASE 18 IU/L (10-42); BILIRUBIN,TOTAL 0.9 mg/dL (0.2-1.0); BUN - BLOOD UREA NITROGEN 20 mg/dL (6-20); CALCIUM 9.3 mg/dL (8.5-10.3); CARBON DIOXIDE - CO2 30 mmol/L (21-32); CHLORIDE 99 mmol/L (101-111); CHOL/HDL RATIO 2.6 (<5.0); CHOLESTEROL 148 mg/dL; GFR - MDRD 70 (>89); GLUCOSE 90 mg/dL (74-104); HDL CHOLESTEROL 57 mg/dL; LDL CHOLESTEROL,CALCULATED 69 mg/dL; LDL/HDL RATIO 1.2 (<3.6); POTASSIUM 4.3 mmol/L (3.5-4.5); SODIUM 135 mmol/L (135-145); TOTAL PROTEIN 7.1 g/dL (6.4-8.9); TRIGLYCERIDES 108 mg/dL (48-352); VLDL CHOLESTEROL 22 mg/dL
[2023-04-20 10:42] LABS: THYROID STIMULATING HORMONE 2.17 uIU/mL (0.34-5.60)
[2023-04-20 12:32] LABS: ESTIMATED AVERAGE GLUCOSE 103 mg/dL (70-100); HEMOGLOBIN A1c% 5.2 % (4.27-6.07)
== END 2023-04-20 09:58 | disposition home or self-care (01) ==
LOC: LAB 09:57
PROVIDERS: ATTEND Family Medicine
DX: I10 Essential (primary) hypertension (principal); R73.9 Hyperglycemia, unspecified; M15.9 Polyosteoarthritis, unspecified; G14 Postpolio syndrome; I48.91 Unspecified atrial fibrillation
CPT/HCPCS: 36415; 80053; 80061; 83036; 83721; 84443; 85025

== ENCOUNTER 2023-05-12 11:29 | Outpatient (CLI) | payer MEDICARE, BC | END 2023-05-12 11:30 | disposition home or self-care (01) | LOC: LAB 11:29 | PROVIDERS: ATTEND Family Medicine | DX: I48.91 Unspecified atrial fibrillation (principal); Z79.01 Long term (current) use of anticoagulants | CPT/HCPCS: 36416; 85610 ==

== ENCOUNTER 2023-06-09 10:30 | Outpatient (CLI) | payer MEDICARE, BC | END 2023-06-09 10:31 | disposition home or self-care (01) | LOC: LAB 10:30 | PROVIDERS: ATTEND Family Medicine | DX: I48.91 Unspecified atrial fibrillation (principal); Z79.01 Long term (current) use of anticoagulants | CPT/HCPCS: 36416; 85610 ==

== ENCOUNTER 2023-07-07 13:15 | Outpatient (CLI) | payer MEDICARE, BC | END 2023-07-07 13:16 | disposition home or self-care (01) | LOC: LAB 13:15 | PROVIDERS: ATTEND Family Medicine | DX: Z79.01 Long term (current) use of anticoagulants (principal); I48.91 Unspecified atrial fibrillation | CPT/HCPCS: 36416; 85610 ==

== ENCOUNTER 2023-07-21 12:14 | Outpatient (CLI) | payer MEDICARE, BC | END 2023-07-21 12:15 | disposition home or self-care (01) | LOC: LAB 12:14 | PROVIDERS: ATTEND Family Medicine | DX: Z79.01 Long term (current) use of anticoagulants (principal); I48.91 Unspecified atrial fibrillation | CPT/HCPCS: 36416; 85610 ==

== ENCOUNTER 2023-08-18 12:10 | Outpatient (CLI) | payer MEDICARE, BC | END 2023-08-18 12:11 | disposition home or self-care (01) | LOC: LAB 12:10 | PROVIDERS: ATTEND Family Medicine | DX: I48.91 Unspecified atrial fibrillation (principal); Z79.01 Long term (current) use of anticoagulants | CPT/HCPCS: 36416; 85610 ==

== ENCOUNTER 2023-09-15 11:15 | Outpatient (CLI) | payer MEDICARE, BC ==
[2023-09-15 11:36] LABS: BASOPHILS # (AUTO) 0.1 10^3/uL (0.0-0.1); BASOPHILS % (AUTO) 0.7 %; EOSINOPHILS # (AUTO) 0.1 10^3/uL (0.0-0.7); EOSINOPHILS % (AUTO) 1.1 %; HCT - HEMATOCRIT 35.5 % (42.0-52.0); LYMPHOCYTES # (AUTO) 2.6 10^3/uL (1.5-3.5); LYMPHOCYTES % (AUTO) 21.6 %; MEAN CORPUSCULAR HEMOGLOBIN 31.9 pg (27.0-31.0); MEAN CORPUSCULAR VOLUME 102.9 fL (80.0-94.0); MEAN PLATELET VOLUME 8.9 fL (7.4-11.4); MONOCYTES # (AUTO) 0.7 10^3/uL (0.0-1.0); MONOCYTES % (AUTO) 5.5 %; NEUTROPHILS # (AUTO) 8.6 10^3/uL (1.5-6.6); NEUTROPHILS % (AUTO) 70.7 %; PLT - PLATELET COUNT 246 10^3/uL (130-450); RED BLOOD COUNT 3.45 10^6/uL (4.70-6.10); RED CELL DISTRIBUTION WIDTH 15.5 % (12.0-15.0); WHITE BLOOD COUNT 12.2 x10^3/uL (4.8-10.8)
[2023-09-15 11:57] LABS: ALBUMIN 4.1 g/dL (3.2-5.5); ALBUMIN/GLOBULIN RATIO 1.4 (1.0-2.2); CALCIUM 9.6 mg/dL (8.5-10.3); CREATININE 1.1 mg/dL (0.6-1.3); POTASSIUM 4.8 mmol/L (3.5-4.5)
[2023-09-15 12:07] LABS: THYROID STIMULATING HORMONE 2.14 uIU/mL (0.34-5.60)
--- NOTE | 2023-09-15 13:32 | XRAY Report ---
PROCEDURE: Chest 2V INDICATIONS: PEDAL EDEMA, EXERTIONAL DYSPNEA, AFIB TECHNIQUE: 2 views of the chest were acquired. COMPARISON: None. FINDINGS: Surgical changes and devices: None. Lungs and pleura: No pleural effusions or pneumothorax. Progression of diffuse chronic idiopathic pu lmonary fibrosis. Mediastinum: Mediastinal contours appear normal. Development of cardiomegaly. Bones and chest wall: No suspicious bony lesions. Overlying soft tissues appear unremarkable. IMPRESSION: 1. Development of cardiomegaly. 2. Progression of diffuse chronic idiopathic pulmonary fibrosis Reviewed by: Jag Michel MD on 09/15/2023 1:31 PM PDT Approved by: Jag Michel MD on 09/15/2023 1:31 PM PDT Station ID: [id number]
== END 2023-09-15 11:16 | disposition home or self-care (01) ==
LOC: LAB 11:15
PROVIDERS: ATTEND Family Medicine
DX: R06.09 Other forms of dyspnea (principal); I48.91 Unspecified atrial fibrillation; I42.9 Cardiomyopathy, unspecified; Z79.01 Long term (current) use of anticoagulants; R60.0 Localized edema; I11.9 Hypertensive heart disease without heart failure; J84.112 Idiopathic pulmonary fibrosis
CPT/HCPCS: 36415; 80053; 83880; 84443; 85025; 85610

== ENCOUNTER 2023-09-24 10:34 | Outpatient (CLI) | payer MEDICARE, BC ==
[2023-09-24] MEDS: ALBUTEROL 1 PUFF INH STA (12:36)
== END 2023-09-24 10:35 | disposition home or self-care (01) ==
LOC: RT 10:34
PROVIDERS: ATTEND Family Medicine
DX: R06.09 Other forms of dyspnea (principal)
CPT/HCPCS: 94060

== ENCOUNTER 2023-09-29 11:34 | Outpatient (CLI) | payer MEDICARE, BC | END 2023-09-29 11:35 | disposition home or self-care (01) | LOC: LAB 11:34 | PROVIDERS: ATTEND Family Medicine | DX: I48.91 Unspecified atrial fibrillation (principal); Z79.01 Long term (current) use of anticoagulants | CPT/HCPCS: 36416; 85610 ==

== ENCOUNTER 2023-10-05 09:41 | Outpatient (CLI) | payer MEDICARE, BC ==
[2023-10-05 09:55] LABS: BASOPHILS # (AUTO) 0.1 10^3/uL (0.0-0.1); BASOPHILS % (AUTO) 0.4 %; EOSINOPHILS # (AUTO) 0.2 10^3/uL (0.0-0.7); EOSINOPHILS % (AUTO) 1.2 %; HCT - HEMATOCRIT 36.3 % (42.0-52.0); HGB - HEMOGLOBIN 11.2 g/dL (14.0-18.0); LYMPHOCYTES # (AUTO) 2.7 10^3/uL (1.5-3.5); LYMPHOCYTES % (AUTO) 19.4 %; MEAN CORPUSCULAR HEMOGLOBIN 31.5 pg (27.0-31.0); MEAN CORPUSCULAR HGB CONC 30.9 g/dL (32.0-36.0); MEAN PLATELET VOLUME 8.5 fL (7.4-11.4); MONOCYTES # (AUTO) 0.8 10^3/uL (0.0-1.0); MONOCYTES % (AUTO) 5.6 %; NEUTROPHILS # (AUTO) 10.2 10^3/uL (1.5-6.6); PLT - PLATELET COUNT 252 10^3/uL (130-450); RED BLOOD COUNT 3.56 10^6/uL (4.70-6.10); RED CELL DISTRIBUTION WIDTH 15.4 % (12.0-15.0)
[2023-10-05 10:01] LABS: ABSOLUTE RETICS # AUTO 0.083 10^6/uL (0.020-0.110); RED BLOOD COUNT 3.53 10^6/uL (4.70-6.10); RETICULOCYTE COUNT % (AUTO) 2.34 % (0.5-2.3)
[2023-10-05 10:33] LABS: FERRITIN 155.7 ng/mL (23.9-336.2)
== END 2023-10-05 09:42 | disposition home or self-care (01) ==
LOC: LAB 09:41
PROVIDERS: ATTEND Family Medicine
DX: D64.9 Anemia, unspecified (principal); R06.09 Other forms of dyspnea
CPT/HCPCS: 36415; 82607; 82728; 82746; 83540; 84466; 85025; 85045

== ENCOUNTER 2023-10-08 11:08 | Outpatient (CLI) | payer MEDICARE, BC | END 2023-10-08 11:09 | disposition home or self-care (01) | LOC: LAB.R 11:08 | PROVIDERS: ATTEND Family Medicine | DX: D64.9 Anemia, unspecified (principal); R06.09 Other forms of dyspnea ==